=== PATIENT | female | born 1965 | race Caucasian/White ===

== ENCOUNTER → 2016-06-30 | Outpatient (CLI) | payer OTHER ==
--- NOTE | 2016-06-30 16:43 | XR ---
EXAMINATION TYPE: XR wrist complete RT DATE OF EXAM: 06/30/2016 4:27 PM COMPARISON: NONE HISTORY: Pain TECHNIQUE: Four views submitted. FINDINGS: The osseous structures are intact. The joint spaces are preserved and there is no acute fracture or dislocation. IMPRESSION: 1. No acute process. If symptoms persist consider MRI.
== END ==
LOC: RADXRMAIN 16:13
PROVIDERS: ATTEND Family Medicine
DX: M25.531 Pain in right wrist (principal)

== ENCOUNTER 2016-07-27 13:52 | Observation (INO) | payer OTHER ==
--- NOTE | 2016-07-27 14:26 | ED ---
General Adult HPI - General Chief complaint: Chest Pain Stated complaint: Sent by [facility] heart Time Seen by Provider: 07/27/16 14:21 Source: patient, RN notes reviewed, old records reviewed Mode of arrival: ambulatory Limitations: no limitations - History of Present Illness Initial comments: This is a 50-year-old female ER for evaluation because patient presents as transfer from [facility]. Patient was sent to [facility] for respiratory shortness of breath racing heart and exertional fatigue and dyspnea. Patient has diabetes and high blood pressure. High cholesterol. Patient admits chest pain to her back especially when she takes a deep breath. No nausea vomiting no recent alcohol or drug use. No sick contacts no fever cough or congestion - Related Data Home Medications Medication Instructions Recorded Confirmed metFORMIN HCL [Glucophage] 1,000 mg PO BID 03/08/15 07/27/16 Atorvastatin [Lipitor] 20 mg PO HS 07/27/16 07/27/16 Venlafaxine HCl [Effexor XR] 75 mg PO DAILY 07/27/16 07/27/16 glipiZIDE XL [Glucotrol XL] 10 mg PO DAILY 07/27/16 07/27/16 sitaGLIPtin [Januvia] 50 mg PO DAILY 07/27/16 07/27/16 Previous Rx's Medication Instructions Recorded traMADol HCl [Ultram] 50 mg PO Q6H PRN #15 tab 03/08/15 Loratadine-Pseudoeph 5-120 mg 1 each PO Q12HR #6 tab.er.12h 07/28/16 [Claritin-D 12 Hour] Metoprolol Tartrate [Lopressor] 12.5 mg PO BID #60 dose 07/28/16 Allergies Allergy/AdvReac Type Severity Reaction Status Date / Time No Known Allergies Allergy Verified 07/27/16 14:32 Review of Systems ROS Statement: Those systems with pertinent positive or pertinent negative responses have been documented in the HPI. ROS Other: All systems not noted in ROS Statement are negative. Past Medical History Past Medical History: Diabetes Mellitus History of Any Multi-Drug Resistant Organisms: None Reported Past Surgical History: Back Surgery, Bladder Surgery, Tonsillectomy, Tubal Ligation, Uterine Ablation Additional Past Surgical History / Comment(s): thyroidectomy Past Psychological History: Anxiety Smoking Status: Former smoker Past Alcohol Use History: Rare Past Drug Use History: None Reported - Past Family History Mother Family Medical History: Diabetes Mellitus Father Additional Family Medical History / Comment(s): stents placed General Exam Limitations: no limitations General appearance: alert, in no apparent distress, anxious, in distress, obese Head exam: Present: atraumatic, normocephalic, normal inspection Eye exam: Present: normal appearance, PERRL, EOMI. Absent: scleral icterus, conjunctival injection, periorbital swelling ENT exam: Present: normal exam, mucous membranes moist Neck exam: Present: normal inspection. Absent: tenderness, meningismus, lymphadenopathy Respiratory exam: Present: normal lung sounds bilaterally. Absent: respiratory distress, wheezes, rales, rhonchi, stridor Cardiovascular Exam: Present: normal rhythm, tachycardia, normal heart sounds. Absent: systolic murmur, diastolic murmur, rubs, gallop, clicks GI/Abdominal exam: Present: soft, normal bowel sounds. Absent: distended, tenderness, guarding, rebound, rigid Extremities exam: Present: normal inspection, full ROM, normal capillary refill. Absent: tenderness, pedal edema, joint swelling, calf tenderness Back exam: Present: normal inspection Neurological exam: Present: alert, oriented X3, CN II-XII intact Psychiatric exam: Present: normal affect, normal mood Skin exam: Present: warm, dry, intact, normal color. Absent: rash Course Vital Signs 07/27/16 07/27/16 07/27/16 13:58 16:59 18:05 Temperature 98.9 F 98.0 F Pulse Rate 138 H 110 H 120 H Respiratory 18 18 18 Rate Blood Pressure 169/95 186/95 162/86 O2 Sat by Pulse 96 98 98 Oximetry EKG Findings - EKG Comments: EKG Findings:: EKG shows sinus tachycardia rate 127, NJ 142, QRS 70, QTC 444 Medical Decision Making - Medical Decision Making 50 female sent here for evaluation by medics for respiratory tachycardia. Patient reports persistent tachycardia recurrence him, CT is negative for PE, patient does have chest pain will be kept for cardiac observation. - Lab Data Result diagrams: 07/28/16 07:47 07/27/16 14:24 Lab Results 07/27/16 07/27/16 07/27/16 Range/Units 14:24 14:24 14:24 WBC 3.8 (3.8-10.6) k/uL RBC 4.91 (3.80-5.40) m/uL Hgb 15.3 (11.4-16.0) gm/dL Hct 45.3 (34.0-46.0) % MCV 92.2 (80.0-100.0) fL MCH 31.2 (25.0-35.0) pg MCHC 33.8 (31.0-37.0) g/dL RDW 12.9 (11.5-15.5) % Plt Count 232 (150-450) k/uL Neutrophils % 67 % Lymphocytes % 19 % Monocytes % 9 % Eosinophils % 3 % Basophils % 1 % Neutrophils # 2.5 (1.3-7.7) k/uL Lymphocytes # 0.7 L (1.0-4.8) k/uL Monocytes # 0.3 (0-1.0) k/uL Eosinophils # 0.1 (0-0.7) k/uL Basophils # 0.0 (0-0.2) k/uL PT (9.0-12.0) sec INR (<1.1) APTT (22.0-30.0) sec D-Dimer (<0.60) mg/L FEU Sodium 137 (137-145) mmol/L Potassium 4.2 (3.5-5.1) mmol/L Chloride 100 (98-107) mmol/L Carbon Dioxide 21 L (22-30) mmol/L Anion Gap 16 mmol/L BUN 11 (7-17) mg/dL Creatinine 0.60 (0.52-1.04) mg/dL Est GFR (MDRD) Af Amer >60 (>60 ml/min/1.73 sqM) Est GFR (MDRD) Non-Af >60 (>60 ml/min/1.73 sqM) Glucose 205 H (74-99) mg/dL Calcium 9.6 (8.4-10.2) mg/dL Magnesium 1.4 L (1.6-2.3) mg/dL Total Bilirubin 0.6 (0.2-1.3) mg/dL AST 57 H (14-36) U/L ALT 75 H (9-52) U/L Alkaline Phosphatase 72 (38-126) U/L Total Creatine Kinase 60 (30-135) U/L CK-MB (CK-2) 0.4 (0.0-2.4) ng/mL CK-MB (CK-2) Rel Index 0.7 Troponin I <0.012 (0.000-0.034) ng/mL Total Protein 8.1 (6.3-8.2) g/dL Albumin 4.7 (3.5-5.0) g/dL Lipase 110 (23-300) U/L TSH (0.465-4.680) mIU/L 07/27/16 07/27/16 07/27/16 Range/Units 14:24 14:24 14:24 WBC (3.8-10.6) k/uL RBC (3.80-5.40) m/uL Hgb (11.4-16.0) gm/dL Hct (34.0-46.0) % MCV (80.0-100.0) fL MCH (25.0-35.0) pg MCHC (31.0-37.0) g/dL RDW (11.5-15.5) % Plt Count (150-450) k/uL Neutrophils % % Lymphocytes % % Monocytes % % Eosinophils % % Basophils % % Neutrophils # (1.3-7.7) k/uL Lymphocytes # (1.0-4.8) k/uL Monocytes # (0-1.0) k/uL Eosinophils # (0-0.7) k/uL Basophils # (0-0.2) k/uL PT 10.4 (9.0-12.0) sec INR 1.0 (<1.1) APTT 22.9 (22.0-30.0) sec D-Dimer 0.34 (<0.60) mg/L FEU Sodium (137-145) mmol/L Potassium (3.5-5.1) mmol/L Chloride (98-107) mmol/L Carbon Dioxide (22-30) mmol/L Anion Gap mmol/L BUN (7-17) mg/dL Creatinine (0.52-1.04) mg/dL Est GFR (MDRD) Af Amer (>60 ml/min/1.73 sqM) Est GFR (MDRD) Non-Af (>60 ml/min/1.73 sqM) Glucose (74-99) mg/dL Calcium (8.4-10.2) mg/dL Magnesium (1.6-2.3) mg/dL Total Bilirubin (0.2-1.3) mg/dL AST (14-36) U/L ALT (9-52) U/L Alkaline Phosphatase (38-126) U/L Total Creatine Kinase (30-135) U/L CK-MB (CK-2) (0.0-2.4) ng/mL CK-MB (CK-2) Rel Index Troponin I (0.000-0.034) ng/mL Total Protein (6.3-8.2) g/dL Albumin (3.5-5.0) g/dL Lipase (23-300) U/L TSH 1.580 (0.465-4.680) mIU/L - Radiology Data Radiology results: report reviewed (CT chest is negative for acute disease), image reviewed Critical Care Time Critical Care Time: Yes Total Critical Care Time: 31 Disposition Clinical Impression: Chest pain, Tachycardia Disposition: ADMITTED IP TO THIS [facility] Condition: Fair
[2016-07-27 14:37] LABS: Basophils % (A) 1 %; CH 32.7; CHCM 35.6; Eosinophils # (A) 0.1 k/uL (0-0.7); Eosinophils % (A) 3 %; HCT 45.3 % (34.0-46.0); HDW 2.55; HGB 15.3 gm/dL (11.4-16.0); Luc # (Auto) 0.07; Luc % (Auto) 2; Lymphocytes # (A) 0.7 k/uL (1.0-4.8); Lymphocytes % (A) 19 %; MCH 31.2 pg (25.0-35.0); MCHC 33.8 g/dL (31.0-37.0); MCV 92.2 fL (80.0-100.0); Mean Platelet Volume 8.1; Monocytes # (A) 0.3 k/uL (0-1.0); Monocytes % (A) 9 %; Neutrophils # (A) 2.5 k/uL (1.3-7.7); Neutrophils % (A) 67 %; RBC 4.91 m/uL (3.80-5.40); RDW 12.9 % (11.5-15.5); WBC 3.8 k/uL (3.8-10.6); WBC (Perox) 3.66
[2016-07-27 14:45] LABS: Partial Thromboplastin Time 22.9 sec (22.0-30.0); Prothrombin Time 10.4 sec (9.0-12.0)
[2016-07-27 14:48] LABS: ALT 75 U/L (9-52); AST 57 U/L (14-36); Alkaline Phosphatase 72 U/L (38-126); Anion Gap 16 mmol/L; Blood Urea Nitrogen 11 mg/dL (7-17); Calcium 9.6 mg/dL (8.4-10.2); Carbon Dioxide 21 mmol/L (22-30); Chloride 100 mmol/L (98-107); Glucose 205 mg/dL (74-99); Magnesium 1.4 mg/dL (1.6-2.3); Non-African American GFR(MDRD) >60 (>60 ml/min/1.73 sqM); Potassium 4.2 mmol/L (3.5-5.1); Sodium 137 mmol/L (137-145); Total Bilirubin 0.6 mg/dL (0.2-1.3); Total Protein 8.1 g/dL (6.3-8.2)
[2016-07-27] MEDS ORDERED: SODIUM CHLORIDE 0.9% 1,000 ML IV STA ×2 (14:52)
[2016-07-27] MEDS ORDERED: RX INFO: IV CONTRAST WAS GIVEN 1 EACH MISC MISCELLANE PRN (14:52)
[2016-07-27] MEDS ORDERED: SODIUM CHLORIDE 0.9% 500 ML IV STA (14:52)
[2016-07-27 14:58] LABS: Creatine Kinase 60 U/L (30-135)
[2016-07-27 15:09] LABS: Creatine Kinase MB 0.4 ng/mL (0.0-2.4); Troponin I <0.012 ng/mL (0.000-0.034)
--- NOTE | 2016-07-27 16:17 | CT ---
EXAMINATION TYPE: CT angio chest DATE OF EXAM: 07/27/2016 3:57 PM COMPARISON: NONE HISTORY: Patient complains of difficulty breathing. CT DLP: 470.8 mGycm Automated exposure control for dose reduction was used. CONTRAST: CTA scan of the thorax is performed with IV Contrast, patient injected with 100 mL of Omnipaque 350, pulmonary embolism protocol. There are 3-D post processed images.. FINDINGS: Lungs are clear of consolidation. There is no evidence of a pulmonary mass. There is no pleural effus ion. Liver appears enlarged. There is decreased density in the liver related to fatty infiltration. T here is no pericardial effusion. There is no evidence of aortic aneurysm or dissection. I see no filling defects in the pulmonary bridgette yolanda. There are no hilar masses. There is no mediastinal adenopathy. There is a mild hiatal hernia. B patric thorax appears intact. Heart appears enlarged. IMPRESSION: NO EVIDENCE OF PULMONARY EMBOLISM. FATTY INFILTRATION OF THE LIVER. CARDIOMEGALY. HIATAL HERNIA.
[2016-07-27] MEDS ORDERED: ASPIRIN 81 MG CHEW PO STA (17:00)
[2016-07-27] MEDS ORDERED: HEPARIN SODIUM,PORCINE 5,000 UNIT/ML 1 ML VIAL IV PRN (17:00)
[2016-07-27] MEDS ORDERED: MORPHINE SULFATE 4 MG/ML SYRINGE IV PRN (17:00)
[2016-07-27] MEDS ORDERED: NITROGLYCERIN SL TABS 0.4 MG TAB SUBLINGUAL PRN (17:00)
[2016-07-27] MEDS ORDERED: HEPARIN SODIUM,PORCINE/D5W PMX 25,000 UNIT in DEXTROSE/WATER 1 500ML.BAG IV SCH (17:00)
[2016-07-27] MEDS ORDERED: HEPARIN SODIUM,PORCINE 5,000 UNIT/ML 1 ML VIAL IV ONE (17:00)
[2016-07-27] MEDS ORDERED: ACETAMINOPHEN TAB 325 MG TAB PO PRN (19:51)
[2016-07-27] MEDS: SODIUM CHLORIDE 0.9% 1,000 ML IV SCH (20:22)
[2016-07-27 20:42] LABS: Creatine Kinase 76 U/L (30-135)
[2016-07-27 20:55] LABS: Creatine Kinase MB 0.3 ng/mL (0.0-2.4); Troponin I <0.012 ng/mL (0.000-0.034)
[2016-07-27] MEDS: guaiFENesin SYRUP 100MG/5ML 200 MG/10 ML CUP PO PRN (22:34)
[2016-07-28 01:57] LABS: Creatine Kinase 69 U/L (30-135)
[2016-07-28 02:10] LABS: Creatine Kinase MB 0.5 ng/mL (0.0-2.4); Troponin I <0.012 ng/mL (0.000-0.034)
[2016-07-28] MEDS: guaiFENesin SYRUP 100MG/5ML 200 MG/10 ML CUP PO PRN ×2 (05:13→13:22)
[2016-07-28] MEDS: SODIUM CHLORIDE 0.9% 1,000 ML IV SCH ×2 (05:16→13:03)
[2016-07-28 08:22] LABS: Glucose,Whole Blood 159 mg/dL (75-99)
--- NOTE | 2016-07-28 08:23 | P.CRDCN ---
History of Present Illness Consult date: 07/28/16 History of present illness: This is Dr. Saleem dictating a consultation on this 50-year-old female who was admitted to the hospital with complaints of cough, cold like symptoms and persistent cough associated with chest pain and back pain. Patient actually went to [facility] for evaluation of chest pains and cough. Apparently she was found to be tachycardic with heart rates in the 120s. Patient was sent here for further evaluation. Patient had a computed tomography scan of the chest in the emergency room which did not reveal any evidence of pulmonary emboli. The chest pain is mostly in the back with some radiation to the front aggravated by cough. Patient did have some burning sensation in the epigastrium throat but that was relieved with Tums. EKGs did not reveal any acute changes except sinus tachycardia. Echocardiogram showed good LV function without any wall motion abnormalities. At this point there doesn't seem to be in acute coronary syndrome. From Cardec standpoint patient could be discharged home when medically stable. Should have a stress test as an outpatient because of history of diabetes and hypercholesterolemia. Review of Systems As per the chart Past Medical History Past Medical History: Diabetes Mellitus, Hyperlipidemia History of Any Multi-Drug Resistant Organisms: None Reported Past Surgical History: Bladder Surgery, Tonsillectomy, Tubal Ligation, Uterine Ablation Additional Past Surgical History / Comment(s): thyroidectomy Past Psychological History: Anxiety Smoking Status: Former smoker Past Alcohol Use History: Rare Past Drug Use History: None Reported - Past Family History Mother Family Medical History: Diabetes Mellitus Father Additional Family Medical History / Comment(s): stents placed Medications and Allergies Home Medications Medication Instructions Recorded Confirmed Type metFORMIN HCL [Glucophage] 1,000 mg PO BID 03/08/15 07/27/16 History Atorvastatin [Lipitor] 20 mg PO HS 07/27/16 07/27/16 History Venlafaxine HCl [Effexor XR] 75 mg PO DAILY 07/27/16 07/27/16 History glipiZIDE XL [Glucotrol Xl] 10 mg PO DAILY 07/27/16 07/27/16 History sitaGLIPtin [Januvia] 50 mg PO DAILY 07/27/16 07/27/16 History Allergies Allergy/AdvReac Type Severity Reaction Status Date / Time No Known Allergies Allergy Verified 07/27/16 14:32 Physical Exam Vitals: Vital Signs Temp Pulse Pulse Resp BP BP BP 07/28/16 08:00 99.4 F 110 H 16 133/85 07/28/16 03:17 18 07/28/16 02:40 99 F 101 H 18 118/75 07/27/16 23:40 98.7 F 93 18 130/88 07/27/16 20:00 98.5 F 106 H 18 139/88 07/27/16 19:56 16 07/27/16 18:40 99.0 F 115 H 16 141/81 07/27/16 18:05 98.0 F 120 H 18 162/86 Pulse Ox 07/28/16 08:00 95 07/28/16 03:17 07/28/16 02:40 97 07/27/16 23:40 96 07/27/16 20:00 96 07/27/16 19:56 07/27/16 18:40 97 07/27/16 18:05 98 Intake and Output 07/27/16 07/28/16 07/28/16 22:59 06:59 14:59 Intake Total 159.667 Balance 159.667 Intake: Intake, IV Titration 159.667 Amount Heparin Sodium,Porcine/ 159.667 D5w Pmx 25,000 unit In Dextrose/Water 1 500ml. bag @ 10.6 UNITS/KG/HR 20 mls/hr IV .Q24H [facility] Rx#: [id number] Other: # Voids 3 GENERAL EXAM: Patient is alert and oriented and doesn't appear to be in any acute distress HEENT: Normocephalic. Normal reaction of pupils, equal size, normal range of extraocular motion. No erythema or exudates in the throat. NECK: No masses, no nuchal rigidity. CHEST: No chest wall deformity. LUNGS: Equal air entry with no crackles or wheeze. HEART: S1 and S2 normal with no audible mumurs or gallops. Regular rhythm, femorals equal on both sides.. ABDOMEN: No hepatosplenomegaly, normal bowel sounds, no guarding or rigidity. SKIN: No rashes CENTRAL NERVOUS SYSTEM: No focal deficits. EXTREMITIES: No cyanosis, clubbing or edema. Results 07/27/16 14:24 07/27/16 14:24 Cardiac Enzymes 07/27/16 07/28/16 Range/Units 20:18 01:21 CK-MB (CK-2) 0.3 0.5 (0.0-2.4) ng/mL Troponin I <0.012 <0.012 (0.000-0.034) ng/mL Coagulation 07/28/16 Range/Units 01:21 APTT 41.4 H (22.0-30.0) sec Current Medications Generic Name Dose Route Start Last Admin Trade Name Freq PRN Reason Stop Dose Admin Acetaminophen 650 mg 07/27/16 19:51 07/27/16 20:22 Tylenol Tab PO 650 mg Q4HR PRN Administration Fever and/ or Pain Aspirin 325 mg 07/28/16 09:00 Aspirin PO DAILY SOTERO Guaifenesin 200 mg 07/27/16 22:17 07/28/16 05:13 Robitussin PO 200 mg Q6H PRN Administration Cough Heparin Sodium (Porcine) 0 unit 07/27/16 17:00 Heparin IV Q6HR PRN Low PTT Protocol Heparin Sodium/Dextrose 25,000 500 mls @ 20 mls/hr 07/27/16 17:00 07/28/16 01 :57 unit/ IV Solution IV 12.6 units/kg/hr .Q24H SOTERO 23.77 mls/hr Protocol Titration 10.6 UNITS/KG/HR Sodium Chloride 1,000 mls @ 100 mls/hr 07/27/16 17:00 07/28/16 05:16 Saline 0.9% IV 100 mls/hr .Q10H SOTERO Administration Miscellaneous Information 1 each 07/27/16 14:52 07/27/16 16:05 Rx Info: Iv Contrast Was Given MISCELLANE 07/29/16 14:52 1 each DAILY PRN Administration Per Protocol Morphine Sulfate 4 mg 07/27/16 17:00 Morphine Sulfate (Inj) IV Q4HR PRN Chest Pain Nitroglycerin 0.4 mg 07/27/16 17:00 Nitrostat SUBLINGUAL Q5M PRN Chest Pain Intake and Output 07/27/16 07/28/16 07/28/16 22:59 06:59 14:59 Intake Total 159.667 Balance 159.667 Intake: Intake, IV Titration 159.667 Amount Heparin Sodium,Porcine/ 159.667 D5w Pmx 25,000 unit In Dextrose/Water 1 500ml. bag @ 10.6 UNITS/KG/HR 20 mls/hr IV .Q24H SOT[facility] Rx#: [id number] Other: # Voids 3 EKG Interpretations (text) Sinus tachycardia. Insignificant Q waves in inferior leads Assessment and Plan (1) Chest pain Status: Acute (2) Tachycardia Status: Acute (3) Bronchitis Status: Acute Plan: Patient's chest pains are clearly pleuritic and related to cough. Patient has a bout of bronchitis and may need a combination of steroids and antibiotics. Echo Cardigan showed good LV function. From Cardec standpoint patient could be discharged home. Follow-up as an outpatient. She may need outpatient stress test when medically stable
[2016-07-28 08:44] LABS: Cholesterol 116 mg/dL (<200); HDL Cholesterol 39 mg/dL (40-60); Triglycerides 112 mg/dL (<150)
[2016-07-28] MEDS ORDERED: ASPIRIN 325 MG TAB PO SCH (09:00)
[2016-07-28] MEDS ORDERED: metFORMIN 500 MG TAB PO SCH (09:15)
[2016-07-28] MEDS ORDERED: traMADol 50 MG TAB PO PRN (09:15)
[2016-07-28] MEDS ORDERED: LINAGLIPTIN 5 MG TABLET PO SCH (10:00)
[2016-07-28] MEDS ORDERED: VENLAFAXINE HCL ER 75 MG CAP PO SCH (10:00)
[2016-07-28] MEDS ORDERED: glipiZIDE 5 MG TAB PO SCH (10:00)
--- NOTE | 2016-07-28 10:37 | ECHOF ---
Referral Reason: MEASUREMENTS -------- HEIGHT: 154.9 cm WEIGHT: 94.3 kg BP: 118/75 IVSd: 1.1 cm (0.6 - 1.1) LVIDd: 3.0 cm (3.9 - 5.3) LVPWd: 1.3 cm (0.6 - 1.1) IVSs: 1.7 cm LVIDs: 1.9 cm LVPWs: 1.4 cm Ao Diam: 3.1 cm (2.0 - 3.7) AV Cusp: 2.0 cm (1.5 - 2.6) LA Diam: 3.2 cm (2.7 - 3.8) MV EXCURSION: 14.924 mm (> 18.000) MV EF SLOPE: 75 mm/s (70 - 150) EPSS: 0.7 cm MV E Kadeem: 0.63 m/s MV DecT: 111 ms MV A Kadeem: 0.79 m/s MV E/A Ratio: 0.80 RAP: 5.00 mmHg RVSP: 12.51 mmHg FINDINGS -------- Resting tachycardia (HR>100bpm). This was a technically difficult study with suboptimal views. There is mild concentric left ventricular hypertrophy. Overall left ventricular systolic function is normal with, an EF between 55 - 60 %. The right ventricle is normal in size and function. The left atrium is normal in size. The right atrium is normal in size. 1.5mg of Definity was utilized for enhancement of images The aortic valve is trileaflet, and appears structurally normal. No aortic stenosis or regurgitation. The mitral valve leaflets are mildly thickened. There is trace mitral regurgitation. Trace tricuspid regurgitation present. The right ventricular systolic pressure, as measured by Doppler, is 12.51mmHg. Pulmonic valve appears structurally normal. The aortic root size is normal. The pericardium is normal. CONCLUSIONS -------- 1. Resting tachycardia (HR>100bpm). 2. The mitral valve leaflets are mildly thickened. 3. There is trace mitral regurgitation. 4. Trace tricuspid regurgitation present. 5. The right ventricular systolic pressure, as measured by Doppler, is 12.51mmHg. 6. Pulmonic valve appears structurally normal. 7. The aortic root size is normal. 8. The pericardium is normal. 9. This was a technically difficult study with suboptimal views. 10. There is mild concentric left ventricular hypertrophy. 11. Overall left ventricular systolic function is normal with, an EF between 55 - 60 %. 12. The right ventricle is normal in size and function. 13. The left atrium is normal in size. 14. The right atrium is normal in size. 15. 1.5mg of Definity was utilized for enhancement of images 16. The aortic valve is trileaflet, and appears structurally normal. No aortic stenosis or regurgitation. RADIOCHEMICAL TECHNICIAN: Gilma Avendaño RDCS
[2016-07-28 11:04] LABS: Hemoglobin A1C 9.1 % (4.2-6.1)
[2016-07-28] MEDS ORDERED: METOPROLOL TARTRATE 12.5 MG TAB PO SCH (12:00)
[2016-07-28 12:04] VITALS: BP 135/87; PULSE 77; RESP 14; TEMP 99.1
[2016-07-28 12:11] LABS: Glucose,Whole Blood 217 mg/dL (75-99)
[2016-07-28] MEDS ORDERED: INSULIN LISPRO (humaLOG) 300 UNIT/3 ML VIAL SQ SCH (12:30)
[2016-07-28] MEDS ORDERED: LORATADINE-PSEUDOEPH 5-120 MG 1 EACH TAB.ER.12H PO SCH (13:15)
[2016-07-28 14:01] VITALS: BMI 39.2
--- NOTE | 2016-07-28 14:36 | HP ---
DATE OF ADMISSION: 07/27/2016 PRESENTING COMPLAINT: Short of breath, cough. HISTORY OF PRESENTING COMPLAINT: This is a very pleasant 50-year-old patient of Dr. Kami Glasgow whose chronic stable medical conditions include diabetes, hyperlipidemia, anxiety. Patient for 3 days has been having increasing amount of cold like symptoms, cough, nasal stuffiness, dry cough, low-grade fever, appetite is down, runny nose, a bit of a headache, rundown. Patient had bouts of coughing, especially after talking and then she does chest pain and decided to come in. She has no prior cardiac history. Chest pain did not radiate, only presented with coughing. REVIEW OF SYSTEMS: CONSTITUTIONAL: Tired. HEENT: Some frontal headache. RESPIRATORY: As above. CARDIOVASCULAR: No precordial pain. GASTROINTESTINAL: None. GENITOURINARY: None. MUSCULOSKELETAL: None. Dermatological: None. HEMATOLOGICAL: None. LYMPHATIC: None. PSYCHIATRY: Anxiety. NEUROLOGICAL: None. PAST MEDICAL HISTORY: Diabetes, hyperlipidemia, anxiety. PAST SURGICAL HISTORY: Bladder surgery, tonsillectomy, tubal ligation, uterine ablation, thyroidectomy. Psych history of anxiety. SOCIAL HISTORY: The patient smoked a few cigarettes on and off for some time. 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 FAMILY HISTORY: Diabetes, coronary artery disease. Home medications: 1. Glucotrol XL 10 mg a day. 2. Lipitor 20 mg q.h.s. 3. Ultram 50 mg q.6 p.r.n. 4. Januvia 50 mg a day. 5. Glucophage 1000 mg p.o. b.i.d. 6. Effexor XR 75 mg a day. 7. Lopressor 12.5 p.o. b.i.d. ALLERGIES: None. PHYSICAL EXAMINATION: Vital signs on presentation: Temperature 98.9, pulse 110, respirations 18, blood pressure 160/86, pulse ox 98% on room air. GENERAL APPEARANCE: Well built, BMI of 39, sitting up, comfortable. EYES: Pupils equal. Conjunctivae normal. HEENT: Oral cavity normal. NECK: JVD not raised. Mass not palpable. RESPIRATORY: Effort normal. LUNGS: Fair air entry. CARDIOVASCULAR: First and second sounds normal. No edema. ABDOMEN: Soft, nontender. Liver and spleen not palpable. LYMPHATIC: No lymph nodes palpable in neck or axillae. PSYCHIATRY: Alert and oriented x3. Mood and affect normal. NEUROLOGICAL: Pupils equal. Cranial nerves grossly intact. Power and sensation grossly intact. INVESTIGATIONS: White count 3.8, hemoglobin 13.3, potassium 4.2. BUN 11, creatinine 0.6, troponin less than 0.012, LDL 55. TSH is normal. EKG shows sinus tachycardia. Chest CTA no evidence of pulmonary embolism. ASSESSMENT: 1. Acute episode of viral syndrome, including sinusitis and bronchitis, causing nasal congestion, tachycardia, laryngitis, with chest pain element of pleurisy, highly doubt this to be cardiac presentation. 2. Diabetes mellitus type 2, on oral hypoglycemic. 3. Hyperlipidemia. 4. Anxiety, not otherwise specified. 5. Obesity, body mass index of 39.3. Cardiology was consulted to make sure there is no cardiac cause. Patient will be put on Claritin. The patient asked to drink warm liquids and do throat gargles. Patient also to cut back on talking as that will improved the vocal cords. Care was discussed with the patient and significant other. Questions were answered.
[2016-07-28] MEDS ORDERED: ATORVASTATIN 20 MG TAB PO SCH (21:00)
--- NOTE | 2016-07-29 21:38 | DS ---
DATE OF ADMISSION: 07/27/2016 DATE OF DISCHARGE: 07/28/2016 FINAL DIAGNOSES: 1. Acute viral syndrome causing sinusitis, bronchitis, and acute laryngitis, present on admission. 2. Acute pleurisy, probably viral, presenting with chest pain. 3. Type 2 diabetes mellitus on oral hypoglycemic. 4. Anxiety, depression not otherwise specified. 5. Obesity, body mass index of 39.3. HOSPITAL COURSE: This patient was admitted with what appears to be viral syndrome causing sinus tachycardia, laryngitis, pleurisy, bronchitis, seen by cardiology. Not needing any further work-up. Care was discussed in detail with the patient and significant other. Questions were answered. A 2-D echocardiogram was unremarkable. CT scan of the chest negative for PE. On exam, LUNGS: Fair air entry. CARDIOVASCULAR: First and second sounds normal. DISCHARGE MEDICATIONS: 1. Glucophage 500 mg p.o. b.i.d. 2. Ultram 50 mg q.6 p.r.n. 3. Lipitor 20 mg q.h.s. 4. Effexor XR 75 mg a day. 5. Glucotrol XL 10 mg a day. 6. Januvia 50 mg p.o. daily. 7. Claritin-D 1 tablet q.12 6 tablets. 8. Lopressor 12.5 p.o. b.i.d. Follow up with Dr. Kami Glasgow in 3 days, Dr. Saleem in one week.
== END 2016-07-28 14:08 | disposition home or self-care (01) ==
LOC: EC 13:52 → 3SUR 17:01 → 3OBS 07-28 10:32
PROVIDERS: ADMIT Hospitalist; ATTEND Hospitalist
DX: B34.9 Viral infection, unspecified (principal); J40 Bronchitis, not specified as acute or chronic; J32.9 Chronic sinusitis, unspecified; J04.0 Acute laryngitis; R09.1 Pleurisy; E11.9 Type 2 diabetes mellitus without complications; F41.9 Anxiety disorder, unspecified; F32.9 Major depressive disorder, single episode, unspecified; E66.9 Obesity, unspecified; Z68.39 Body mass index [BMI] 39.0-39.9, adult; E78.00 Pure hypercholesterolemia, unspecified; E78.5 Hyperlipidemia, unspecified; Z79.84 Long term (current) use of oral hypoglycemic drugs; Z79.899 Other long term (current) drug therapy; Z82.49 Family history of ischemic heart disease and other diseases of the circulatory system; Z87.891 Personal history of nicotine dependence; R06.02 Shortness of breath; R53.83 Other fatigue; R00.0 Tachycardia, unspecified; R51 Headache; I10 Essential (primary) hypertension
CPT/HCPCS: 96376 ×2; 96361 ×3; 99291 ×2; 36415; 93005; 85379; 80061; 80053; 84443; 83036; 82550 ×2; 82553 ×2; 83690; 83735; 84484 ×2; 85025; 85049; 85610; 85730 ×2; 71275; G0378 ×2; C8929; J1644 ×2; Q9967; Q9957; 93306; 96366

== ENCOUNTER → 2017-02-18 | Outpatient (CLI) | payer OTHER ==
--- NOTE | 2017-02-19 11:47 | MM ---
Reason for exam: screening (asymptomatic). Last mammogram was performed 1 year and 5 months ago. History: Family history of breast cancer in paternal aunt. Reductions of both breasts, 2011. Physical Findings: A clinical breast exam by your physician is recommended on an annual basis and results should be correlated with mammographic findings. MG Screening Mammo w CAD Bilateral CC and MLO view(s) were taken. Prior study comparison: October 03, 2015, bilateral MG screening mammo w CAD. May 12, 2012, CAD bilateral diagnostic mammogram. There are scattered fibroglandular densities. Finding: There are typically benign dystrophic, round calcifications in both breasts. There is no discrete abnormality. ASSESSMENT: Incomplete: need additional imaging evaluation, BI-RAD 0 RECOMMENDATION: Ultrasound of the left breast. (focal site of shooting pain) [facility] will attempt to contact patient to return for ultrasound.
== END | disposition home or self-care (01) ==
LOC: RADMAMWWP 11:13
PROVIDERS: ATTEND Family Medicine
DX: Z12.31 Encounter for screening mammogram for malignant neoplasm of breast (principal); N95.1 Menopausal and female climacteric states

== ENCOUNTER → 2017-02-27 | Outpatient (CLI) | payer OTHER ==
--- NOTE | 2017-02-27 10:15 | US ---
EXAMINATION TYPE: US pelvis complete transvag DATE OF EXAM: 02/27/2017 COMPARISON: US & CT CLINICAL HISTORY: N95.1 Menopausal Female Climacteric States. TECHNIQUE: Transvaginal (TV) and Transabdominal (TA) Date of LMP: post menopausaul EXAM MEASUREMENTS: Uterus: 9.2 x 4.4 x 4.7 cm Endometrial Stripe: 0.7 cm Right Ovary: not identified cm Left Ovary: 1.8 x 1.1 x 1.2 cm 1. Uterus: Anteverted heterogeneous 2. Endometrium: measures 0.7 cm 3. Right Ovary: not identified 4. Left Ovary: wnl 5. Bilateral Adnexa: wnl 6. Posterior cul-de-sac: no free fluid IMPRESSION: 1. Uterine tissue is heterogeneous which is not. Occasionally BE seen with diffuse fibroid change. No discrete fibroids noted.
== END | disposition home or self-care (01) ==
LOC: RADUSWWP 09:35
PROVIDERS: ATTEND Family Medicine
DX: N95.1 Menopausal and female climacteric states (principal)
CPT/HCPCS: 76830; 76856

== ENCOUNTER → 2017-03-06 | Outpatient (CLI) | payer OTHER ==
--- NOTE | 2017-03-09 08:31 | USB ---
Reason for exam: additional evaluation requested from abnormal screening. History: Family history of breast cancer in paternal aunt. Reductions of both breasts, 2010. Physical Findings: Nurse Summary: increased thickening bilaterally at scars (nurse kp). US Breast Workup Limited LT Left breast ultrasound demonstrates no cystic or solid lesion seen. Upper outer quadrant and periareolar regions were scanned. These results were verbally communicated with the patient and result sheet given to the patient on 03/06/17. ASSESSMENT: Negative, BI-RAD 1 RECOMMENDATION: Return to routine screening mammogram schedule for both breasts. Manage on a clinical basis with regard to shooting breast pain.
== END | disposition home or self-care (01) ==
LOC: RADUSWWP 15:25
PROVIDERS: ATTEND Family Medicine
DX: R92.8 Other abnormal and inconclusive findings on diagnostic imaging of breast (principal)

== ENCOUNTER 2017-06-13 18:59 | Emergency (ER) | payer OTHER ==
[2017-06-13] MEDS ORDERED: MORPHINE SULFATE 4 MG/ML SYRINGE IV STA (19:37)
[2017-06-13] MEDS ORDERED: ONDANSETRON 4 MG/2 ML VIAL IVP STA (19:37)
[2017-06-13] MEDS ORDERED: SODIUM CHLORIDE 0.9% 1,000 ML IV STA ×2 (19:37)
[2017-06-13] MEDS ORDERED: PANTOPRAZOLE 40 MG/10 ML VIAL IVP STA (19:38)
[2017-06-13 20:01] LABS: Basophils % (A) 0 %; Eosinophils # (A) 0.2 k/uL (0-0.7); Eosinophils % (A) 2 %; HCT 41.3 % (34.0-46.0); HGB 14.4 gm/dL (11.4-16.0); Lymphocytes # (A) 2.4 k/uL (1.0-4.8); Lymphocytes % (A) 24 %; MCH 31.7 pg (25.0-35.0); MCHC 34.9 g/dL (31.0-37.0); MCV 90.6 fL (80.0-100.0); Mean Platelet Volume 8.6; Monocytes # (A) 0.5 k/uL (0-1.0); Monocytes % (A) 5 %; Neutrophils # (A) 6.7 k/uL (1.3-7.7); Neutrophils % (A) 68 %; Platelet Count 283 k/uL (150-450); RBC 4.56 m/uL (3.80-5.40); RDW 12.3 % (11.5-15.5); WBC 9.8 k/uL (3.8-10.6)
[2017-06-13 20:07] LABS: ALT 31 U/L (9-52); AST 16 U/L (14-36); Albumin 4.3 g/dL (3.5-5.0); Alkaline Phosphatase 69 U/L (38-126); Amylase 84 U/L (30-110); Anion Gap 12 mmol/L; Blood Urea Nitrogen 12 mg/dL (7-17); Calcium 9.9 mg/dL (8.4-10.2); Carbon Dioxide 26 mmol/L (22-30); Chloride 98 mmol/L (98-107); Glucose 250 mg/dL (74-99); Lipase 182 U/L (23-300); Potassium 4.5 mmol/L (3.5-5.1); Sodium 136 mmol/L (137-145); Total Bilirubin 0.5 mg/dL (0.2-1.3); Total Protein 7.2 g/dL (6.3-8.2)
[2017-06-13 20:10] VITALS: PULSE 84; RESP 18
[2017-06-13 20:17] LABS: Creatine Kinase 45 U/L (30-135)
[2017-06-13 20:19] LABS: D-Dimer 0.3 mg/L FEU (<0.60)
[2017-06-13 20:23] LABS: INR 0.9 (<1.2); Partial Thromboplastin Time 22.6 sec (22.0-30.0); Prothrombin Time 9.4 sec (9.0-12.0)
[2017-06-13 20:30] LABS: Creatine Kinase MB 0.3 ng/mL (0.0-2.4); Troponin I <0.012 ng/mL (0.000-0.034)
--- NOTE | 2017-06-13 20:42 | ED ---
Chest Pain HPI - General Chief Complaint: Chest Pain Stated Complaint: UPPER BACK PAIN RADIATING TO CHEST Time Seen by Provider: 06/13/17 19:16 Source: patient Mode of arrival: ambulatory Limitations: no limitations - History of Present Illness Initial Comments: 51 years old female presented with a chest pain going on for 6 days, and she denies any history of heart disease denies any history of pancreatitis denies any history of stomach ulcers denies any alcohol abuse as well pain gets worse with deep breaths she does have a history of diabetes. He denies any headaches no neck stiffness is short-winded has chest pain no abdominal pain no frequency urgency dysuria no symptoms of TIA or CVA - Related Data Home Medications Medication Instructions Recorded Confirmed Albiglutide [Tanzeum] 30 mg SQ Q7D 06/13/17 06/13/17 Glipizide (Unk. Dose) 1 tab PO DIRECTED 06/13/17 06/13/17 Hormone Patch 1 patch TRANSDERM DIRECTED 06/13/17 06/13/17 Lisinopril (Unk. Dose) 1 tab PO DIRECTED 06/13/17 06/13/17 Metformin (Unk. Dose) 1 tab PO DIRECTED 06/13/17 06/13/17 traMADol HCl [Ultram] 50 mg PO ONCE PRN 06/13/17 06/13/17 Previous Rx's Medication Instructions Recorded Omeprazole 20 mg PO DAILY #30 cap 06/13/17 oxyCODONE-APAP 5-325MG [Percocet 1 tab PO Q6HR PRN #12 tab 06/13/17 5-325 mg] Allergies Allergy/AdvReac Type Severity Reaction Status Date / Time No Known Allergies Allergy Verified 06/13/17 20:09 Review of Systems ROS Statement: Those systems with pertinent positive or pertinent negative responses have been documented in the HPI. ROS Other: All systems not noted in ROS Statement are negative. EKG Findings - EKG Comments: EKG Findings:: EKG is normal sinus rhythm medical rate is 86 PA interval is 154 QRS duration is 66 QT/QTc is 340/406 and aVF this EKG does not reveal any ST elevation or ST depression Past Medical History Past Medical History: Diabetes Mellitus, Hyperlipidemia, Thyroid Disorder History of Any Multi-Drug Resistant Organisms: None Reported Past Surgical History: Back Surgery, Bladder Surgery, Tonsillectomy, Tubal Ligation, Uterine Ablation Additional Past Surgical History / Comment(s): thyroidectomy Past Psychological History: Anxiety Smoking Status: Former smoker Past Alcohol Use History: Rare Past Drug Use History: None Reported - Past Family History Mother Family Medical History: Diabetes Mellitus Father Additional Family Medical History / Comment(s): stents placed General Exam - General Exam Comments Initial Comments: General: The patient is awake and alert, Mild distress Skin: Skin is warm and dry and no rashes or lesions are noted. Eye: Pupils are equal, round and reactive to light, extra-ocular movements are intact; there is normal conjunctiva bilaterally. Ears, nose, mouth and throat: There are moist mucous membranes and no oral lesions. Neck: The neck is supple, there is no tenderness or JVD. Cardiovascular: There is a regular rate and rhythm. No murmur, rub or gallop is appreciated. Respiratory: To auscultation bilateral, no wheezing no rhonchi no distress respiratory henderson noticed Gastrointestinal: Tender in epigastric area very tender over right upper quadrant as well as left upper quadrant area Back: There is no tenderness to palpation in the midline. There is no obvious deformity. Musculoskeletal: Normal ROM, no tenderness, There is no pedal edema. There is no calf tenderness or swelling. No cords were appreciated. Neurological: CN II-XII intact, Cranial nerves III through XII are intact. There are no obvious motor or sensory deficits. Coordination appears grossly intact. Speech is normal. Psychiatric: Cooperative, appropriate mood & affect, normal judgment. Limitations: no limitations Course Vital Signs 06/13/17 06/13/17 19:01 20:09 Temperature 98.9 F Pulse Rate 91 84 Respiratory 20 18 Rate Blood Pressure 138/96 149/86 O2 Sat by Pulse 98 97 Oximetry 70 is reassessed at term 2120, she is feeling better her CBC her troponin and d- dimer are all unremarkable she be gone home on now omeprazole 20 mg 1 tablet daily she was advised to cut down on acid-containing beverages (1 follow with the family doctor and now back to ER if pain gets worse Disposition Clinical Impression: Chest pain, Epigastric pain Disposition: HOME SELF-CARE Instructions: Chest Pain (ED) Prescriptions: Omeprazole 20 mg PO DAILY #30 cap oxyCODONE-APAP 5-325MG [Percocet 5-325 mg] 1 tab PO Q6HR PRN #12 tab PRN Reason: Pain Referrals: Kami Glasgow DO [Primary Care Provider] - 1-2 days
--- NOTE | 2017-06-13 21:11 | XR ---
EXAMINATION TYPE: XR thoracic spine 2V DATE OF EXAM: 06/13/2017 COMPARISON: NONE HISTORY: Upper back pain TECHNIQUE: Three-view thoracic spine FINDINGS: Mid thoracic spine spondylosis is present. Disc heights appear preserved. Vertebral body he ights are preserved. Alignment is normal. IMPRESSION: 1. Thoracic spondylosis
--- NOTE | 2017-06-13 21:11 | XR ---
EXAMINATION TYPE: XR chest 2V DATE OF EXAM: 06/13/2017 COMPARISON: 06/12/2010 INDICATION: Chest pain short of breath TECHNIQUE: Frontal and lateral views of the chest are obtained. FINDINGS: The heart size is normal. The pulmonary vasculature is normal. The lungs are clear. There is spondylosis through the thoracic spine. IMPRESSION: 1. No acute pulmonary process.
[2017-06-13 21:35] VITALS: BP 141/86; TEMP 97.4
== END 2017-06-13 21:35 | disposition home or self-care (01) ==
LOC: EC 18:59
DX: R07.9 Chest pain, unspecified (principal); R10.13 Epigastric pain; E11.9 Type 2 diabetes mellitus without complications; Z87.891 Personal history of nicotine dependence; Z79.84 Long term (current) use of oral hypoglycemic drugs; Z79.899 Other long term (current) drug therapy
CPT/HCPCS: 36415; 93005; 85379; 80053; 82150; 82550; 82553; 83690; 83735; 84484; 85025; 85610; 85730; 72070; 71046; 99285; 96374; 96375 ×2; 96361; J2270; J2405; C9113

== ENCOUNTER 2017-07-17 06:46 | Day surgery (SDC) | payer OTHER ==
[2017-07-15 10:07] VITALS: BMI 37.8
[~2017-07-17 06:46] MED LIST: LACTATED RINGERS 1,000 ML IV SCH; LIDOCAINE 1% 20 ML VIAL (10MG/ML) FOR IV START INTRADERMA PRN
[2017-07-17 07:31] LABS: Glucose,Whole Blood 193 mg/dL (75-99)
[2017-07-17 07:33] VITALS: RESP 18; TEMP 98.3
[2017-07-17] MEDS ORDERED: ONDANSETRON 4 MG/2 ML VIAL IVP ONE (07:36)
[2017-07-17] MEDS ORDERED: PROPOFOL 10 MG/ML 20 ML VIAL IV ONE (08:08)
--- NOTE | 2017-07-17 08:33 | P.PCN ---
Date of Procedure: 07/17/17 Procedure(s) Performed: BRIEF HISTORY: Patient is a 51-year-old pleasant 8 female, scheduled for an elective colonoscopy as a part of screening for colorectal neoplasia. PROCEDURE PERFORMED: Colonoscopy. PREOPERATIVE DIAGNOSIS: Screening for colon cancer. IV sedation per Anesthesia. PROCEDURE: After informed consent was obtained, the patient, was brought into the endoscopy unit. IV sedation was administered by Anesthesia under continuous monitoring. Digital rectal examination was normal. Initially the Olympus CF- 160 flexible video colonoscope was then inserted in the rectum, gradually advanced into the cecum without any difficulty. Careful examination was performed as the scope was gradually being withdrawn. Ileocecal valve and the appendiceal orifice were visualized and appeared normal. Prep was excellent. Mucosa of the cecum, ascending colon, transverse colon, descending colon, sigmoid colon, and rectum appeared normal. Retroflexion was performed in the rectum and no lesions were seen. The patient tolerated the procedure well. IMPRESSION: Normal-appearing colon from rectum to cecum with no evidence of colorectal neoplasia . RECOMMENDATIONS: Findings of this examination were discussed with the patient as well as her family. She was advised to have a repeat screening colonoscopy in 10 years.
[2017-07-17 09:05] VITALS: BP 136/84; PULSE 68
== END 2017-07-17 09:15 | disposition home or self-care (01) ==
LOC: ORWHC2ENDO 06:46
PROVIDERS: ATTEND Internal Medicine Gastroenterology
DX: Z12.11 Encounter for screening for malignant neoplasm of colon (principal); I10 Essential (primary) hypertension; E11.9 Type 2 diabetes mellitus without complications; Z79.84 Long term (current) use of oral hypoglycemic drugs; Z79.890 Hormone replacement therapy; Z79.899 Other long term (current) drug therapy
CPT/HCPCS: 81025; J2405; J2704; G0121

== ENCOUNTER → 2017-09-19 | Outpatient (CLI) | payer OTHER ==
--- NOTE | 2017-09-19 11:29 | XR ---
EXAMINATION TYPE: XR elbow complete RT DATE OF EXAM: 09/19/2017 CLINICAL HISTORY: Right elbow pain for 2 weeks with no known injury TECHNIQUE: Frontal, lateral and oblique images of the right elbow are obtained. COMPARISON: None FINDINGS: There is no acute fracture/dislocation evident in the right elbow. No abnormal fat pad si gns are seen. The overlying soft tissue appears unremarkable. IMPRESSION: There is no acute fracture or dislocation in the right elbow.
--- NOTE | 2017-09-21 08:17 | MR ---
EXAMINATION TYPE: MR thoracic spine wo con DATE OF EXAM: 09/19/2017 COMPARISON: NONE HISTORY: Pain in thoracic spine Standard multiplanar, multisequence MRI departmental protocol Multiplanar, multisequence images of the thoracic spine were acquired. FINDINGS: Alignment is anatomic. There is loss of disc signal and space at T8-T9 and T9-T10 compatible with deg enerative disc disease. No compression deformities. At T2-T3 there is minimal central disc bulging but no canal stenosis, spinal cord contact or foramina l encroachment. At T8-T9 there is a focal right paracentral disc herniation which abuts the anterior margin of the sp inal cord results in mass effect. There is mild compression anteriorly to the right. At T9-T10 there is a focal right paracentral disc herniation which results in mild anterior compressi on and upon the anterior margin the spinal cord. No abnormal signal the visualized spinal cord. Sagittal disc bulging noted at C5-C6 and C6-C7. IMPRESSION: 1. Degenerative disc disease with right paracentral disc herniations T8-T9 and T9-T10 resulting in an terior compression of the spinal cord. Referring clinician notified by telephone. 2. Sagittal disc bulging C5-C6 and C6-C7. Axial images of these levels are not included by MRI of the thoracic spine. Correlate with MRI as clinically warranted.
== END | disposition home or self-care (01) ==
LOC: RADMRIMAIN 10:26
PROVIDERS: ATTEND Family Medicine
DX: M51.24 Other intervertebral disc displacement, thoracic region (principal); M51.34 Other intervertebral disc degeneration, thoracic region; M25.521 Pain in right elbow
CPT/HCPCS: 72146

== ENCOUNTER 2018-01-28 08:16 | Emergency (ER) | payer OTHER ==
[2018-01-28] MEDS ORDERED: ONDANSETRON 4 MG/2 ML VIAL IVP STA (08:51)
[2018-01-28] MEDS ORDERED: diphenhydrAMINE 50 MG/ML 1 ML VIAL IVP STA (08:51)
[2018-01-28] MEDS ORDERED: MECLIZINE 12.5 MG TAB PO STA (08:51)
[2018-01-28] MEDS ORDERED: SODIUM CHLORIDE 0.9% 1,000 ML IV STA ×2 (08:51)
--- NOTE | 2018-01-28 08:54 | ED ---
Dizziness HPI - General Chief Complaint: Dizziness Stated Complaint: Dizziness Time Seen by Provider: 01/28/18 08:27 Source: patient, family, RN notes reviewed, old records reviewed Mode of arrival: wheelchair Limitations: no limitations - History of Present Illness Initial Comments: Patient is a 52-year-old female presents emergency department today with chief complaint of dizziness episodes. Patient reports that upon awaking today she felt like when she would turn her head the room would spin. She reports that that caused her to feel nauseated. Patient states this happened multiple times through the morning when she would change position. She denies any specific chest pain. She states that she does feel like she is somewhat labored breathing. She denies any headache. Denies visual changes. - Related Data Home Medications Medication Instructions Recorded Confirmed Escitalopram [Lexapro] 10 mg PO DAILY 07/15/17 01/28/18 Estradiol [Estradiol 0.1 MG Patch] 1 patch TRANSDERM FR 07/15/17 01/28/18 Lisinopril [Prinivil] 10 mg PO PC-LUNCH 07/15/17 01/28/18 Progesterone, Micronized 200 mg PO DAILY 07/15/17 01/28/18 [Progesterone] glipiZIDE [Glucotrol] 10 mg PO AC-BRKFST 07/15/17 01/28/18 metFORMIN HCL [metFORMIN HCL ER] 1,000 mg PO DAILY 07/15/17 01/28/18 sitaGLIPtin [Januvia] 100 mg PO DAILY 07/15/17 01/28/18 ALPRAZolam [Xanax] 0.25 mg PO BID PRN 01/28/18 01/28/18 Acetaminophen [Tylenol Extra 500 mg PO Q6HR PRN 01/28/18 01/28/18 Strength] Atorvastatin [Lipitor] 20 mg PO HS 01/28/18 01/28/18 Previous Rx's Medication Instructions Recorded Meclizine [Antivert] 25 mg PO TID #20 tab 01/28/18 Ondansetron Odt [Zofran Odt] 4 mg PO Q8HR PRN #12 tab 01/28/18 Allergies Allergy/AdvReac Type Severity Reaction Status Date / Time No Known Allergies Allergy Verified 01/28/18 09:17 Review of Systems ROS Statement: Those systems with pertinent positive or pertinent negative responses have been documented in the HPI. ROS Other: All systems not noted in ROS Statement are negative. Past Medical History Past Medical History: Diabetes Mellitus, Hyperlipidemia, Hypertension, Thyroid Disorder History of Any Multi-Drug Resistant Organisms: None Reported Past Surgical History: Bladder Surgery, Orthopedic Surgery, Tonsillectomy, Tubal Ligation, Uterine Ablation Additional Past Surgical History / Comment(s): thyroidectomy. CYST REMOVED FROM BACK. RT KNEE SX Past Anesthesia/Blood Transfusion Reactions: Postoperative Nausea & Vomiting ( PONV) Past Psychological History: Anxiety Smoking Status: Current some day smoker Past Alcohol Use History: Rare Past Drug Use History: None Reported - Past Family History Mother Family Medical History: Diabetes Mellitus Father Additional Family Medical History / Comment(s): stents placed General Exam - General Exam Comments Initial Comments: 52-year-old female. Alert and oriented. Patient appears in no acute distress. Limitations: no limitations General appearance: alert, in no apparent distress Head exam: Present: atraumatic, normocephalic, normal inspection Eye exam: Present: normal appearance, PERRL, EOMI. Absent: scleral icterus, conjunctival injection, periorbital swelling ENT exam: Present: normal exam, mucous membranes moist, other (Patient has nystagmus on right lateral gaze.) Neck exam: Present: normal inspection. Absent: tenderness, meningismus, lymphadenopathy Respiratory exam: Present: normal lung sounds bilaterally. Absent: respiratory distress, wheezes, rales, rhonchi, stridor Cardiovascular Exam: Present: regular rate, normal rhythm, normal heart sounds. Absent: systolic murmur, diastolic murmur, rubs, gallop, clicks GI/Abdominal exam: Present: soft, normal bowel sounds. Absent: distended, tenderness, guarding, rebound, rigid Neurological exam: Present: alert, oriented X3, CN II-XII intact Psychiatric exam: Present: normal affect, normal mood Skin exam: Present: warm, dry, intact, normal color. Absent: rash Course Vital Signs 01/28/18 08:23 Temperature 97.9 F Pulse Rate 72 Respiratory 20 Rate Blood Pressure 165/95 O2 Sat by Pulse 100 Oximetry Medical Decision Making - Medical Decision Making 50-year-old female presents emergency arm to complaint of dizziness. Following the room was spinning. Patient was given IV fluids labwork obtained. Given Antivert and Zofran and Benadryl. She reports relief in her symptoms Patient has some nystagmus on on right lateral gaze. This time Patient has normal lab work. Normal EKG and normal chest x-ray. Discussed likely etiology is related to vertigo. We'll discharge the Patient with Antivert and Zofran. Discussed return parameters and close follow-up with PCP. Patient's family understands treatment and Patient is history plan will comply. Return parameters were discussed. - Lab Data Result diagrams: 01/28/18 08:42 01/28/18 08:42 Lab Results 01/28/18 01/28/18 01/28/18 Range/Units 08:42 08:42 08:42 WBC 6.1 (3.8-10.6) k/uL RBC 4.81 (3.80-5.40) m/uL Hgb 15.2 (11.4-16.0) gm/dL Hct 44.8 (34.0-46.0) % MCV 93.2 (80.0-100.0) fL MCH 31.5 (25.0-35.0) pg MCHC 33.8 (31.0-37.0) g/dL RDW 12.6 (11.5-15.5) % Plt Count 269 (150-450) k/uL Neutrophils % 68 % Lymphocytes % 23 % Monocytes % 4 % Eosinophils % 3 % Basophils % 1 % Neutrophils # 4.1 (1.3-7.7) k/uL Lymphocytes # 1.4 (1.0-4.8) k/uL Monocytes # 0.3 (0-1.0) k/uL Eosinophils # 0.2 (0-0.7) k/uL Basophils # 0.0 (0-0.2) k/uL Sodium 136 L (137-145) mmol/L Potassium 5.0 (3.5-5.1) mmol/L Chloride 99 (98-107) mmol/L Carbon Dioxide 24 (22-30) mmol/L Anion Gap 13 mmol/L BUN 13 (7-17) mg/dL Creatinine 0.45 L (0.52-1.04) mg/dL Est GFR (CKD-EPI)AfAm >90 (>60 ml/min/1.73 sqM) Est GFR (CKD-EPI)NonAf >90 (>60 ml/min/1.73 sqM) Glucose 253 H (74-99) mg/dL Calcium 9.3 (8.4-10.2) mg/dL Total Bilirubin 0.6 (0.2-1.3) mg/dL AST 22 (14-36) U/L ALT 39 (9-52) U/L Alkaline Phosphatase 50 (38-126) U/L Troponin I <0.012 (0.000-0.034) ng/mL Total Protein 6.8 (6.3-8.2) g/dL Albumin 3.9 (3.5-5.0) g/dL Urine Color Urine Appearance (Clear) Urine pH (5.0-8.0) Ur Specific [place] (1.001-1.035) Urine Protein (Negative) Urine Glucose (UA) (Negative) Urine Ketones (Negative) Urine Blood (Negative) Urine Nitrite (Negative) Urine Bilirubin (Negative) Urine Urobilinogen (<2.0) mg/dL Ur Leukocyte Esterase (Negative) 01/28/18 Range/Units 09:01 WBC (3.8-10.6) k/uL RBC (3.80-5.40) m/uL Hgb (11.4-16.0) gm/dL Hct (34.0-46.0) % MCV (80.0-100.0) fL MCH (25.0-35.0) pg MCHC (31.0-37.0) g/dL RDW (11.5-15.5) % Plt Count (150-450) k/uL Neutrophils % % Lymphocytes % % Monocytes % % Eosinophils % % Basophils % % Neutrophils # (1.3-7.7) k/uL Lymphocytes # (1.0-4.8) k/uL Monocytes # (0-1.0) k/uL Eosinophils # (0-0.7) k/uL Basophils # (0-0.2) k/uL Sodium (137-145) mmol/L Potassium (3.5-5.1) mmol/L Chloride (98-107) mmol/L Carbon Dioxide (22-30) mmol/L Anion Gap mmol/L BUN (7-17) mg/dL Creatinine (0.52-1.04) mg/dL Est GFR (CKD-EPI)AfAm (>60 ml/min/1.73 sqM) Est GFR (CKD-EPI)NonAf (>60 ml/min/1.73 sqM) Glucose (74-99) mg/dL Calcium (8.4-10.2) mg/dL Total Bilirubin (0.2-1.3) mg/dL AST (14-36) U/L ALT (9-52) U/L Alkaline Phosphatase (38-126) U/L Troponin I (0.000-0.034) ng/mL Total Protein (6.3-8.2) g/dL Albumin (3.5-5.0) g/dL Urine Color Yellow Urine Appearance Clear (Clear) Urine pH 7.0 (5.0-8.0) Ur Specific [place] 1.017 (1.001-1.035) Urine Protein Trace H (Negative) Urine Glucose (UA) 3+ H (Negative) Urine Ketones Trace H (Negative) Urine Blood Negative (Negative) Urine Nitrite Negative (Negative) Urine Bilirubin Negative (Negative) Urine Urobilinogen <2.0 (<2.0) mg/dL Ur Leukocyte Esterase Negative (Negative) 01/28/18 09:42 EKG performed at 850 shows normal sinus rhythm inferior infarct age indeterminate. Cannot rule out anterior infarct age and treatment. Abnormal EKG noted. Ventricular rate of 75 bpm. TX interval is 160 ms. QS duration 60. QTQTC screening 2/447 ms. - Radiology Data Radiology results: report reviewed Chest x-ray is negative for any acute cardio primary process. Disposition Clinical Impression: Vertigo Disposition: HOME SELF-CARE Condition: Good Instructions: Dizziness (ED), Vertigo (ED) Additional Instructions: Eyes are rest, remain hydrated. Take medications as prescribed. Have close follow-up with primary care physician. Return to the emergency department if any alarming signs or symptoms occur. Prescriptions: Meclizine [Antivert] 25 mg PO TID #20 tab Ondansetron Odt [Zofran Odt] 4 mg PO Q8HR PRN #12 tab PRN Reason: Nausea Is patient prescribed a controlled substance at d/c from ED?: No Referrals: Kami Glasgow DO [Primary Care Provider] - 1-2 days Time of Disposition: 11:27
[2018-01-28 09:31] LABS: ALT 39 U/L (9-52); AST 22 U/L (14-36); Albumin 3.9 g/dL (3.5-5.0); Alkaline Phosphatase 50 U/L (38-126); Anion Gap 13 mmol/L; Blood Urea Nitrogen 13 mg/dL (7-17); Calcium 9.3 mg/dL (8.4-10.2); Carbon Dioxide 24 mmol/L (22-30); Chloride 99 mmol/L (98-107); Glucose 253 mg/dL (74-99); Sodium 136 mmol/L (137-145); Total Bilirubin 0.6 mg/dL (0.2-1.3); Total Protein 6.8 g/dL (6.3-8.2)
--- NOTE | 2018-01-28 09:31 | XR ---
EXAMINATION TYPE: XR chest 2V DATE OF EXAM: 01/28/2018 COMPARISON: 06/13/2017. HISTORY: Dizziness. TECHNIQUE: Frontal and lateral views of the chest are obtained. FINDINGS: There is no focal air space opacity, pleural effusion, or pneumothorax seen. Unchanged ch ronic right hemidiaphragm elevation. The cardiac silhouette size is within normal limits. The osseo us structures are intact. Mild multilevel degenerative changes of the thoracic spine are seen. IMPRESSION: No acute cardiopulmonary process.
[2018-01-28 09:38] LABS: Basophils % (A) 1 %; Eosinophils # (A) 0.2 k/uL (0-0.7); Eosinophils % (A) 3 %; HCT 44.8 % (34.0-46.0); HGB 15.2 gm/dL (11.4-16.0); Lymphocytes # (A) 1.4 k/uL (1.0-4.8); Lymphocytes % (A) 23 %; MCH 31.5 pg (25.0-35.0); MCHC 33.8 g/dL (31.0-37.0); MCV 93.2 fL (80.0-100.0); Mean Platelet Volume 8.6; Monocytes # (A) 0.3 k/uL (0-1.0); Monocytes % (A) 4 %; Neutrophils # (A) 4.1 k/uL (1.3-7.7); Neutrophils % (A) 68 %; Platelet Count 269 k/uL (150-450); RBC 4.81 m/uL (3.80-5.40); RDW 12.6 % (11.5-15.5); WBC 6.1 k/uL (3.8-10.6)
[2018-01-28 09:42] LABS: Appearance,Urine Clear (Clear); Bilirubin,Urine Negative (Negative); Blood,Urine Negative (Negative); Color,Urine Yellow; Glucose,Urine (UA) 3+ (Negative); Ketones,Urine Trace (Negative); Leukocyte Esterase,Urine Negative (Negative); Nitrite,Urine Negative (Negative); Protein,Urine Trace (Negative); Specific Gravity,Urine 1.017 (1.001-1.035); Urobilinogen,Urine <2.0 mg/dL (<2.0)
[2018-01-28 11:43] VITALS: BP 135/76; PULSE 89; RESP 19; TEMP 98.5
== END 2018-01-28 11:43 | disposition home or self-care (01) ==
LOC: EC 08:16
DX: R42 Dizziness and giddiness (principal); R94.31 Abnormal electrocardiogram [ECG] [EKG]; H55.00 Unspecified nystagmus; R11.0 Nausea; R06.4 Hyperventilation; E78.5 Hyperlipidemia, unspecified; I10 Essential (primary) hypertension; E11.9 Type 2 diabetes mellitus without complications; F41.9 Anxiety disorder, unspecified; F17.200 Nicotine dependence, unspecified, uncomplicated; Z79.84 Long term (current) use of oral hypoglycemic drugs; Z79.899 Other long term (current) drug therapy
CPT/HCPCS: 36415; 93005; 80053; 84484; 85025; 81003; 71046; 99284; 96374; 96375; 96361 ×3; J1200; J2405

== ENCOUNTER 2018-05-30 10:42 | Emergency (ER) | payer OTHER ==
[2018-05-30 10:46] VITALS: RESP 20
[2018-05-30] MEDS ORDERED: methylPREDNISolone SOD SUCCI 125 MG/2 ML VIAL IV STA (10:50)
[2018-05-30] MEDS ORDERED: FAMOTIDINE 20 MG/2 ML VIAL IV STA (10:50)
[2018-05-30] MEDS ORDERED: diphenhydrAMINE 50 MG/ML 1 ML VIAL IVP STA (10:50)
[2018-05-30] MEDS ORDERED: SODIUM CHLORIDE 0.9% 1,000 ML IV ONE (10:51)
--- NOTE | 2018-05-30 11:11 | ED ---
Allergic Reaction HPI - General Chief complaint: Allergic Reaction Stated complaint: itchy all over/rash Time Seen by Provider: 05/30/18 10:48 Source: patient Mode of arrival: ambulatory Limitations: no limitations - History of Present Illness Initial Comments: 52-year-old female past medical history of hypertension, hyperlipidemia and diabetes presenting today for chief complaint of itchy rash. Patient states she was itchy rash on her abdomen and her chest. She states began shortly after eating almond, soy and wosabi. She states in the past she has had ALLERGIC reaction to almonds however she has since had them frequently and had no issues. Denies any diarrhea, tongue swelling, lip swelling, facial swelling or involvement, difficulty breathing or swallowing. Patient does she does have some itchiness of the mouth. Remaining ROS negative, patient denies any recent fever, chills, shortness of breath, chest pain, back pain, abdominal pain, nausea or vomiting, numbness or tingling, dysuria or hematuria, constipation or diarrhea, headaches or visual changes, or any other complaints. Upon arrival patient does not appear in acute distress, there is no obvious swelling of the face or tongue. - Related Data Home Medications Medication Instructions Recorded Confirmed Escitalopram [Lexapro] 10 mg PO DAILY 07/15/17 01/28/18 Estradiol [Estradiol 0.1 MG Patch] 1 patch TRANSDERM FR 07/15/17 01/28/18 Lisinopril [Prinivil] 10 mg PO PC-LUNCH 07/15/17 01/28/18 Progesterone, Micronized 200 mg PO DAILY 07/15/17 01/28/18 [Progesterone] glipiZIDE [Glucotrol] 10 mg PO AC-BRKFST 07/15/17 01/28/18 metFORMIN HCL [metFORMIN HCL ER] 1,000 mg PO DAILY 07/15/17 01/28/18 sitaGLIPtin [Januvia] 100 mg PO DAILY 07/15/17 01/28/18 ALPRAZolam [Xanax] 0.25 mg PO BID PRN 01/28/18 01/28/18 Acetaminophen [Tylenol Extra 500 mg PO Q6HR PRN 01/28/18 01/28/18 Strength] Atorvastatin [Lipitor] 20 mg PO HS 01/28/18 01/28/18 Previous Rx's Medication Instructions Recorded Meclizine [Antivert] 25 mg PO TID #20 tab 01/28/18 Ondansetron Odt [Zofran Odt] 4 mg PO Q8HR PRN #12 tab 01/28/18 predniSONE 20 mg PO BID 4 Days #8 tab 05/30/18 Allergies Allergy/AdvReac Type Severity Reaction Status Date / Time No Known Allergies Allergy Verified 05/30/18 10:46 Review of Systems ROS Statement: Those systems with pertinent positive or pertinent negative responses have been documented in the HPI. ROS Other: All systems not noted in ROS Statement are negative. Past Medical History Past Medical History: Diabetes Mellitus, Hyperlipidemia, Hypertension, Thyroid Disorder History of Any Multi-Drug Resistant Organisms: None Reported Past Surgical History: Bladder Surgery, Orthopedic Surgery, Tonsillectomy, Tubal Ligation, Uterine Ablation Additional Past Surgical History / Comment(s): thyroidectomy. CYST REMOVED FROM BACK. RT KNEE SX Past Anesthesia/Blood Transfusion Reactions: Postoperative Nausea & Vomiting ( PONV) Past Psychological History: Anxiety Smoking Status: Current some day smoker Past Alcohol Use History: Rare Past Drug Use History: None Reported - Past Family History Mother Family Medical History: Diabetes Mellitus Father Additional Family Medical History / Comment(s): stents placed General Exam - General Exam Comments Initial Comments: General: The patient is awake and alert, in no distress, and does not appear acutely ill. Eye: Pupils are equal, round and reactive to light, extra-ocular movements are intact. No nystagmus. There is normal conjunctiva bilaterally. No signs of icterus. Ears, nose, mouth and throat: There are moist mucous membranes and no oral lesions. No lip swelling, no tongue swelling no difficulty swallowing. No swelling of the neck or face. No involvement of rash on face Neck: The neck is supple, there is no tenderness or JVD. Cardiovascular: There is a regular rate and rhythm. No murmur, rub or gallop is appreciated. Respiratory: Lungs are clear to auscultation, respirations are non-labored, breath sounds are equal. No wheezes, stridor, rales, or rhonchi. Signs of respiratory distress. Gastrointestinal: Soft, non-distended, non-tender abdomen without masses or organomegaly noted. There is no rebound or guarding present. . Bowel sounds are unremarkable. Musculoskeletal: Normal ROM, no tenderness. Strength 5/5. Sensation intact. Pulses equal bilaterally 2+. Neurological: A&O x 3. CN II-XII intact, There are no obvious motor or sensory deficits. Coordination appears grossly intact. Speech is normal. Skin: Skin is warm and dry. Raised macular wheal, erythematous that is blanchable on the chest and abdomen. Psychiatric: Cooperative, appropriate mood & affect, normal judgment. Limitations: no limitations Course Vital Signs 05/30/18 10:44 Temperature 97.6 F Pulse Rate 115 H Respiratory 20 Rate Blood Pressure 179/84 O2 Sat by Pulse 97 Oximetry Medical Decision Making - Medical Decision Making 52-year-old presenting with dysuria. Patient did eat almonds today and has had previous allergic reaction. Patient given sign Benadryl, Pepcid and Benadryl. This resolved the rash within 30 minutes, there was no longer itchiness. Patient states she feels tired from the Benadryl however symptoms have subsided. Patient was monitored for an additional 45 minutes to an hour after resolution of rash, no recurrence of symptoms. Patient continues to remain asymptomatic. No signs concerning for anaphylaxis. At this time I do feel patient is stable for discharge with prescription for prednisone and outpatient allergy testing as well as follow-up with primary care provider. Plan was discussed with patient as well as attending provider all agreeable with plan and discharge. Patient was discharged appearing well. Disposition Clinical Impression: Allergic reaction Disposition: HOME SELF-CARE Condition: Good Instructions (If sedation given, give patient instructions): Food Allergy (ED) , General Allergic Reaction (ED), Allergy Testing (ED) Additional Instructions: Please use medication as discussed. Please follow-up with family doctor in the next 2 days, I recommend allergy testing and avoidance of nuts. Please return to emergency room if the symptoms increase or worsen or for any other concerns. Prescriptions: predniSONE 20 mg PO BID 4 Days #8 tab Is patient prescribed a controlled substance at d/c from ED?: No Referrals: Kami Glasgow DO [Primary Care Provider] - 1-2 days Time of Disposition: 11:34
[2018-05-30 12:58] VITALS: BP 126/80; PULSE 96; TEMP 97.7
== END 2018-05-30 12:58 | disposition home or self-care (01) ==
LOC: EC 10:42
DX: T78.1XXA Other adverse food reactions, not elsewhere classified, initial encounter (principal); L29.9 Pruritus, unspecified; R30.0 Dysuria; E11.9 Type 2 diabetes mellitus without complications; E78.5 Hyperlipidemia, unspecified; I10 Essential (primary) hypertension; F41.9 Anxiety disorder, unspecified; F17.200 Nicotine dependence, unspecified, uncomplicated; Z79.890 Hormone replacement therapy; Z79.84 Long term (current) use of oral hypoglycemic drugs; Z79.899 Other long term (current) drug therapy
CPT/HCPCS: 99282; 96374; 96375 ×2; 96361; J1200; J2930

== ENCOUNTER → 2018-06-16 | Outpatient (CLI) | payer OTHER ==
--- NOTE | 2018-06-17 11:42 | US ---
EXAMINATION TYPE: US pelvic complete DATE OF EXAM: 06/16/2018 COMPARISON: 02/27/2017 CLINICAL HISTORY: R10.2 Pelvic Pain. General pelvic pain, hx of endometrial ablation x 10 years ago. Patient unable to hold bladder- limited transabdominal visualization TECHNIQUE: Transvaginal (TV) and Transabdominal (TA) . Transabdominal sonographic images of the pel vis were acquired. Transvaginal sonographic images were medically necessary to better assess the fol lowing anatomy: Ovaries Date of LMP: Postmenopausal, EXAM MEASUREMENTS: Uterus: 8.4 x 5.0 x 42 cm Endometrial Stripe: 0.2 cm 1. Uterus: Anteverted Appears heterogenous, no focal lesions visualized 2. Endometrium: limited due to hx of ablation 3. Right Ovary: Obscured by overlying bowel gas 4. Left Ovary: Obscured by overlying bowel gas 5. Bilateral Adnexa: wnl 6. Posterior cul-de-sac: no free fluid IMPRESSION: 1. 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 Adenomyosis is also in the differential. Findings could be further evaluated with pelvic MRI with and without contrast. 2. Endometrium is poorly defined but does not appear grossly thickened. 3. Obscuration of the bilateral ovaries by bowel gas.
== END | disposition home or self-care (01) ==
LOC: RADUSWWP 15:29
PROVIDERS: ATTEND Family Medicine
DX: N85.8 Other specified noninflammatory disorders of uterus (principal)
CPT/HCPCS: 76830; 76856

== ENCOUNTER → 2018-06-17 | Outpatient (CLI) | payer OTHER ==
--- NOTE | 2018-06-18 10:21 | MM ---
Reason for exam: screening (asymptomatic). Last mammogram was performed 1 year and 4 months ago. History: Family history of ovarian cancer in maternal grandmother and breast cancer in paternal aunt. Reductions of both breasts, 2011. Physical Findings: A clinical breast exam by your physician is recommended on an annual basis and results should be correlated with mammographic findings. MG Screening Mammo w CAD Bilateral CC and MLO view(s) were taken. Prior study comparison: February 18, 2017, bilateral MG screening mammo w CAD. October 03, 2015, bilateral MG screening mammo w CAD. There are scattered fibroglandular densities. Benign appearing bilateral calcifications. There is chronic nodularity in the right breast, stable. No significant changes when compared with prior studies. ASSESSMENT: Benign, BI-RAD 2 RECOMMENDATION: Routine screening mammogram of both breasts in 1 year.
== END | disposition home or self-care (01) ==
LOC: RADMAMWWP 16:27
PROVIDERS: ATTEND Family Medicine
DX: Z12.31 Encounter for screening mammogram for malignant neoplasm of breast (principal)
CPT/HCPCS: 77067

== ENCOUNTER → 2018-07-24 | Outpatient (CLI) | payer OTHER ==
[2018-07-24 09:04] LABS: Basophils # (A) 0.1 k/uL (0-0.2); Basophils % (A) 1 %; Eosinophils # (A) 0.2 k/uL (0-0.7); Eosinophils % (A) 4 %; HCT 48.2 % (34.0-46.0); HGB 15.7 gm/dL (11.4-16.0); Lymphocytes # (A) 1.8 k/uL (1.0-4.8); Lymphocytes % (A) 33 %; MCH 30.7 pg (25.0-35.0); MCHC 32.5 g/dL (31.0-37.0); MCV 94.5 fL (80.0-100.0); Mean Platelet Volume 8.6; Monocytes # (A) 0.3 k/uL (0-1.0); Monocytes % (A) 5 %; Neutrophils # (A) 3.2 k/uL (1.3-7.7); Neutrophils % (A) 57 %; Platelet Count 275 k/uL (150-450); RBC 5.11 m/uL (3.80-5.40); RDW 12.1 % (11.5-15.5); WBC 5.6 k/uL (3.8-10.6)
[2018-07-24 16:40] LABS: Albumin 4.7 g/dL (3.80-4.90); Albumin/Globulin Ratio 2.24 (1.60-3.17); Anion Gap 10.3 mmol/L (4.00-12.00); Calcium 9.8 mg/dL (8.7-10.3); Carbon Dioxide 28.7 mmol/L (21.6-31.8); Globulin 2.1 g/dL (1.6-3.3); LDL Cholesterol,Calculated 81.8 mg/dL (0.0-131.0); Total Bilirubin 0.4 mg/dL (0.2-1.2); Total Protein 6.8 g/dL (6.2-8.2); VLDL Calculation 27.2 mg/dL (5.00-40.00)
[2018-07-24 20:45] LABS: Hemoglobin A1C 11.6 % (4.0-6.0)
== END | disposition home or self-care (01) ==
LOC: LABWHC1 08:32
PROVIDERS: ATTEND Family Medicine
DX: I10 Essential (primary) hypertension (principal); E78.5 Hyperlipidemia, unspecified; E11.9 Type 2 diabetes mellitus without complications
CPT/HCPCS: 36415; 80053; 80061; 83036; 85025

== ENCOUNTER → 2018-07-28 | Outpatient (CLI) | payer OTHER ==
--- NOTE | 2018-07-29 15:28 | MR ---
EXAMINATION TYPE: MR knee LT wo con DATE OF EXAM: 07/28/2018 COMPARISON: Left HISTORY: Left knee pain/effusion TECHNIQUE: Multiplanar, multisequence imaging of the left knee is performed without IV contrast. FINDINGS: MEDIAL MENISCUS: There is a radial tear of the free edge of the posterior horn of the medial meniscus with oblique component contiguous with the inferior articular surface and intrameniscal signal robbin tible with myxoid degeneration. This tear extends into the meniscal body and meniscal root. Anterior horn appears intact. LATERAL MENISCUS: No discrete tear is seen of the anterior and posterior horns are intact however the re is some meniscal degeneration at the root with increased signal of the posterior root. CRUCIATE LIGAMENTS: The anterior and posterior cruciate ligaments are intact. However there is high s ignal throughout the anterior cruciate ligament compatible with moderate grade sprain. COLLATERAL LIGAMENTS: The medial collateral ligament and lateral collateral ligament complex are inta ct. There is high signal superficial to the medial collateral ligament suggesting medial collateral l igament bursitis. No discontinuity the medial collateral ligament is seen. EXTENSOR MECHANISM: Visualized quadriceps and patellar tendons are intact. There is minimal increased signal in the insertional fibers of the quadriceps tendon and originating fibers of the patellar ten don. There is mild overlying prepatellar subcutaneous soft tissue swelling. Incomplete fat saturation is seen over the patella as there is no abnormal patellar T1 signal to suggest bone marrow edema. EFFUSION: There is a very small suprapatellar joint effusion without internal complexity. POPLITEAL CYST: No popliteal/christy cyst. However there is a ganglion noted posterior to the inferior margin of the posterior cruciate ligament. TRICOMPARTMENT SPACES: There is mild medial compartment joint space narrowing. Additionally there is subchondral cystic change seen of the medial tibial plateau at its most medial aspect in midportion d eep to a full-thickness chondral defect measuring 9 mm low the meniscus. CARTILAGE: Full-thickness chondral defect of the medial tibial plateau as described above with near f ull-thickness chondral defect of the weightbearing surface of the medial femoral condyle measuring 1. 6 cm. Early subchondral cystic change is also seen of the posterior and 9 medial femoral condyle near its lateral aspect. Lateral compartment cartilage is slightly heterogenous and thickened without focal defect. Patellofemoral cartilage displays no focal defect. BONE MARROW SIGNAL: Subchondral cystic change of the medial compartment, otherwise unremarkable. IMPRESSION: 1. Complex tear of the posterior horn of the medial meniscus extending into the meniscal root and men iscal body. No discontinuity the meniscal root. 2. Meniscal degeneration/myxoid degeneration of the posterior root of the lateral meniscus. 3. Full-thickness chondral defect of the weightbearing surface of the medial femoral condyle and most medial aspect of the medial tibial plateau deep to the medial meniscal tear bulge resulting in subch ondral cystic change. 4. Mid grade anterior cruciate ligament sprain without discontinuity. 5. Findings suggesting mild medial collateral ligament bursitis. 6. Mild quadriceps insertional tendinosis and patellar tendinosis of the originating fibers with mini mal overlying prepatellar subcutaneous edema.
== END ==
LOC: RADMRIMAIN 15:29
PROVIDERS: ATTEND Orthopaedic Surgery Sports Medicine
DX: M17.12 Unilateral primary osteoarthritis, left knee (principal); S83.242A Other tear of medial meniscus, current injury, left knee, initial encounter; S83.512A Sprain of anterior cruciate ligament of left knee, initial encounter; M76.52 Patellar tendinitis, left knee; M25.862 Other specified joint disorders, left knee

== ENCOUNTER 2018-08-25 11:17 | Day surgery (SDC) | payer OTHER ==
[2018-08-20 14:48] VITALS: BMI 37.8
[~2018-08-25 11:17] MED LIST changes: +DEXAMETHASONE SOD PHOSPHATE 10 MG/ML 1 ML VIAL IV ONE; +HYDROmorphone 0.5 MG/0.5 ML SYRINGE IVP PRN; +MIDAZOLAM 2 MG/2 ML VIAL IV PRN; +ONDANSETRON 4 MG/2 ML VIAL IVP ONE; +SCOPOLAMINE 1.5MG/72HR PATCH TRANSDERM ONE; +ceFAZolin IN SWFI 2 GM/20 ML SYRINGE IVP ONE
[2018-08-25 11:59] LABS: Glucose,Whole Blood 213 mg/dL (75-99)
[2018-08-25] MEDS ORDERED: NEOSTIGMINE 1 MG/ML 10 ML VIAL ONE (12:57)
[2018-08-25] MEDS ORDERED: GLYCOPYRROLATE 0.2 MG/ML 2 ML VIAL ONE (12:57)
[2018-08-25] MEDS ORDERED: ONDANSETRON 4 MG/2 ML VIAL ONE (12:57)
[2018-08-25] MEDS ORDERED: SUCCINYLCHOLINE CHLORIDE 100 MG/5 ML SYR IV ONE (12:57)
[2018-08-25] MEDS ORDERED: DEXAMETHASONE SOD PHOS (MDV) 100 MG/10 ML VIAL ONE (12:57)
[2018-08-25] MEDS ORDERED: MIDAZOLAM 2 MG/2 ML VIAL ONE (12:57)
[2018-08-25] MEDS ORDERED: LIDOCAINE 1% INJ 10MG/ML (20 ML MDV) ONE (12:57)
[2018-08-25] MEDS ORDERED: ROCURONIUM BROMIDE 10 MG/ML 10 ML VIAL IV ONE (12:57)
[2018-08-25] MEDS ORDERED: fentaNYL (PF) 50 MCG/ML 2 ML AMP ONE (12:57)
[2018-08-25] MEDS ORDERED: PROPOFOL 10 MG/ML 20 ML VIAL IV ONE (12:57)
[2018-08-25] MEDS ORDERED: BUPIVACAIN-EPI 0.5%-1:200,000 30 ML VIAL SQ ONE (13:34)
[2018-08-25] MEDS ORDERED: LACTATED RINGERS 1,000 ML IV ONE (13:41)
[2018-08-25 14:12] VITALS: TEMP 97.4
[2018-08-25 14:46] LABS: Glucose,Whole Blood 262 mg/dL (75-99)
[2018-08-25 15:25] VITALS: RESP 18
[2018-08-25 15:34] VITALS: BP 118/65; PULSE 71
--- NOTE | 2018-08-26 07:27 | OP ---
OPERATIVE REPORT DATE OF PROCEDURE: 08/25/2018 PREOPERATIVE DIAGNOSIS: Left knee medial meniscus tear. POSTOPERATIVE DIAGNOSES: 1. Left knee posterior horn medial meniscus tear. 2. Left knee thickened infrapatellar and medial shelf plica. PROCEDURE PERFORMED: 1. Left knee arthroscopic partial medial meniscectomy. 2. Left knee arthroscopic lysis of adhesions. SURGEON: Ari Ybarra MD. ANESTHESIA: General endotracheal. ESTIMATED BLOOD LOSS: Minimal. TOURNIQUET: None. DRAINS: None. COMPLICATIONS: None apparent. DISPOSITION: Postanesthesia care unit. INDICATIONS: Jeannette is a 52-year-old female with a twisting injury to her left knee. Physical examination and MRI are consistent with tearing of the posterior horn of the medial meniscus. 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 A long discussion with her with regards to treatment options. She has been through a fairly long course of nonoperative treatment. At this point, she feels that she has failed conservative management and would like to proceed with operative intervention. The risks were explained to the patient which include, but are not limited to risk of infection, nerve damage, bleeding, pain, and a small risk of deep vein thrombosis which could lead to fatal pulmonary embolism. The patient understands these risks and wished to proceed with surgical procedure. Examination under anesthesia range of motion right full, left full, effusion right none, left none. Silvana's right normal good end point, left normal good end point. Pivot shift right grade 0, left grade 0. Posterior drawer right normal good end point, left normal good end point. Varus laxity right none, left none. Valgus laxity right none, left none. External rotation right normal, left normal. ARTHROSCOPIC FINDINGS: Superior pouch was normal. Medial gutter: Thickened medial shelf plica. Lateral gutter was normal. Patella: Diffuse grade 1 change. Trochlea: She had an area of grade 3 change on the lateral aspect of the trochlea. The remaining trochlear showed grade 1 to 2 change. Patellar tracking was normal. Medial femoral condyle diffuse grade 2 to 3 change on the weightbearing surface of the medial femoral condyle. Medial tibial plateau, mild grade 2 change. Medial meniscus complex tear posterior horn of the medial meniscus. Lateral femoral condyle normal chondral surfaces. Lateral tibial plateau mild grade 1 change. Lateral meniscus was normal. Anterior cruciate ligament normal. Posterior cruciate ligament normal. Infrapatellar notch thickened infrapatellar plica . DETAILS OF THE PROCEDURE: The patient identified in the preoperative holding area. Surgical site was marked by both the patient and myself. She was given 2 grams of Ancef IV for prophylactic purposes. She was then transported to the operative suite. She was placed supine on the operating room table. General anesthetic was then administered and dosed per the anesthesia department without apparent complication. Examination under anesthesia was then performed of both knees. The findings noted above. The tourniquet was not placed on the left upper thigh. The left lower extremity then prepped and draped in usual sterile fashion. Standard surgical pause undertaken to ensure that we were operating on the correct site and that appropriate preoperative antibiotics had given. All staff in the room in agreement, we proceeded. The knee was then insufflated with 120 mL sterile saline solution. This was done to gradually distend the joint. A standard inferolateral portal was then made. A 30- degree arthroscope was introduced in the suprapatellar pouch. The arthroscopic pump pressure was set to 60 mmHg and maintained at that level throughout the entire case. Next utilizing an 18-gauge spinal needle topical localized placement, the inferomedial port was made under direct visualization. A standard diagnostic arthroscopy of the knee was then performed. The findings were noted as above. Attention was first drawn to the infrapatellar notch. She had a very thickened infrapatellar plica as well as thickened medial shelf plica. This released with a biter and debrided back to a stable tissue utilizing synovial shaver. Attention then drawn to the the medial compartment of the knee. She had a complex tear of the posterior horn of the medial meniscus. This tear was quite macerated and deemed irreparable. The meniscus tear was then debrided with a combination of biter and synovial shaver back to stable tissue. Approximately 50% of the posterior horn of the medial meniscus remained intact after debridement. Next, the arthroscope was placed medial to the posterior cruciate ligament through the notch in the posterior medial compartment of the knee. There was no residual flap tears or loose bodies noted per. The posterior root attachment was carefully inspected and found to be intact. The anterior root attachment was also inspected and found to be intact. At this point time no further work was deemed necessary. The knee was thoroughly irrigated and drained in outflow cannula. The arthroscope was removed from the knee. The arthroscopic portals were then closed with 3-0 nylon interrupted suture. Sterile compressive dressing was then applied. All sponge and needle counts were deemed correct prior to closure. The patient tolerated the procedure without apparent complication. She was transferred to the recovery room in stable condition. MMODL / JACLYNN: [id number] /
== END 2018-08-25 15:48 | disposition home or self-care (01) ==
LOC: OR 11:17
PROVIDERS: ATTEND Orthopaedic Surgery Sports Medicine
DX: S83.242A Other tear of medial meniscus, current injury, left knee, initial encounter (principal); X50.1XXA Overexertion from prolonged static or awkward postures, initial encounter; M94.262 Chondromalacia, left knee; M67.52 Plica syndrome, left knee; E78.5 Hyperlipidemia, unspecified; F32.9 Major depressive disorder, single episode, unspecified; K21.9 Gastro-esophageal reflux disease without esophagitis; E11.9 Type 2 diabetes mellitus without complications; Z79.84 Long term (current) use of oral hypoglycemic drugs; Z83.3 Family history of diabetes mellitus; Z79.899 Other long term (current) drug therapy; Z79.890 Hormone replacement therapy
CPT/HCPCS: 29881; J2250; J1100 ×2; J2710; J2405; J2001; J3010; J0330; J2704; J0690

== ENCOUNTER → 2019-03-18 | Outpatient (CLI) | payer OTHER ==
[2019-03-18 20:09] LABS: Hemoglobin A1C 10.3 % (4.0-6.0)
== END | disposition home or self-care (01) ==
LOC: LABWHC1 09:37
PROVIDERS: ATTEND Family Medicine
DX: E11.9 Type 2 diabetes mellitus without complications (principal)
CPT/HCPCS: 36415; 83036

== ENCOUNTER → 2020-03-23 | Outpatient (CLI) | payer OTHER ==
--- NOTE | 2020-03-26 13:50 | MM ---
Reason for exam: screening (asymptomatic). Last mammogram was performed 1 year and 9 months ago. History: Family history of ovarian cancer in maternal grandmother and breast cancer in paternal aunt. Reductions of both breasts, 2011. Taking estrogen beginning at age 51. Physical Findings: A clinical breast exam by your physician is recommended on an annual basis and results should be correlated with mammographic findings. MG Screening Mammo w CAD Bilateral CC and MLO view(s) were taken. Prior study comparison: June 17, 2018, bilateral MG screening mammo w CAD. February 18, 2017, bilateral MG screening mammo w CAD. There are scattered fibroglandular densities. There are benign appearing round dystrophic calcifications bilaterally. There is no discrete abnormality. ASSESSMENT: Benign, BI-RAD 2 RECOMMENDATION: Routine screening mammogram of both breasts in 1 year.
== END | disposition home or self-care (01) ==
LOC: RADMAMWWP 09:48
PROVIDERS: ATTEND Obstetrics & Gynecology
DX: Z12.31 Encounter for screening mammogram for malignant neoplasm of breast (principal); Z80.3 Family history of malignant neoplasm of breast
CPT/HCPCS: 77067

== ENCOUNTER → 2020-07-20 | Outpatient (CLI) | payer OTHER ==
--- NOTE | 2020-07-20 13:28 | XR ---
EXAMINATION TYPE: XR chest 2V DATE OF EXAM: 07/20/2020 COMPARISON: 01/28/2018 INDICATION: COVID TECHNIQUE: Frontal and lateral views of the chest are obtained. FINDINGS: The heart size is normal. The pulmonary vasculature is normal. The lungs are clear. Spondylosis of the thoracic spine. IMPRESSION: 1. No acute pulmonary process.
== END | disposition home or self-care (01) ==
LOC: RADXRMAIN 12:14
PROVIDERS: ATTEND Family Medicine
DX: U07.1 COVID-19 (principal)
CPT/HCPCS: 71046

== ENCOUNTER 2020-08-08 23:34 | Emergency (ER) | payer OTHER ==
[2020-08-08 23:46] VITALS: BP 164/71; PULSE 92; RESP 20; TEMP 97.9
[2020-08-09] MEDS ORDERED: AMOXIC-POT CLAV 875-125MG 1 EACH TAB PO STA (00:37)
[2020-08-09] MEDS ORDERED: IBUPROFEN 800 MG TAB PO STA (00:37)
[2020-08-09] MEDS ORDERED: AMOXIC-POT CLAV 875MG STARTER PACK 2 TAB BTL PO STA (00:37)
--- NOTE | 2020-08-09 00:38 | ED ---
Female Urogenital HPI - General Chief complaint: Abdominal Pain Stated complaint: Urogenital Time Seen by Provider: 08/08/20 23:48 Source: patient Mode of arrival: ambulatory Limitations: no limitations - Related Data Home Medications Medication Instructions Recorded Confirmed Escitalopram [Lexapro] 10 mg PO QAM 07/15/17 08/25/18 Lisinopril [Prinivil] 10 mg PO QAM 07/15/17 08/25/18 Progesterone, Micronized 200 mg PO DAILY 07/15/17 08/25/18 [Progesterone] estradioL [Estradiol 0.1 MG Patch] 1 patch TRANSDERM SA 07/15/17 08/25/18 glipiZIDE [Glucotrol] 10 mg PO AC-BRKFST 07/15/17 08/25/18 metFORMIN HCL [metFORMIN HCL ER] 1,000 mg PO BID 07/15/17 08/25/18 sitaGLIPtin [Januvia] 100 mg PO QAM 07/15/17 08/25/18 ALPRAZolam [Xanax] 0.25 mg PO BID PRN 01/28/18 08/25/18 Acetaminophen [Tylenol Extra 500 mg PO Q6HR PRN 01/28/18 08/25/18 Strength] Atorvastatin [Lipitor] 20 mg PO HS 01/28/18 08/25/18 Omeprazole (Unknown Dose) 1 tab PO QAM 08/20/18 08/25/18 Previous Rx's Medication Instructions Recorded HYDROcodone/APAP 5-325MG [[place] 1 tab PO Q4HR PRN #42 tab 08/25/18 5-325] Allergies Allergy/AdvReac Type Severity Reaction Status Date / Time No Known Allergies Allergy Verified 08/08/20 23:46 Review of Systems ROS Statement: Those systems with pertinent positive or pertinent negative responses have been documented in the HPI. ROS Other: All systems not noted in ROS Statement are negative. Past Medical History Past Medical History: Diabetes Mellitus, GERD/Reflux, Hyperlipidemia, Hypertension, Thyroid Disorder Additional Past Medical History / Comment(s): Unsure of what was wrong with her thyroid, states half of it was removed. History of Any Multi-Drug Resistant Organisms: None Reported Past Surgical History: Bladder Surgery, Orthopedic Surgery, Tonsillectomy, Tubal Ligation, Uterine Ablation Additional Past Surgical History / Comment(s): Partial thyroidectomy, CYST REMOVED FROM BACK, RIGHT KNEE SURGERY. Past Anesthesia/Blood Transfusion Reactions: Postoperative Nausea & Vomiting (PONV) Past Psychological History: No Psychological Hx Reported Smoking Status: Never smoker Past Alcohol Use History: Rare Past Drug Use History: None Reported - Past Family History Mother Family Medical History: Diabetes Mellitus Father Additional Family Medical History / Comment(s): stents placed General Exam Limitations: no limitations Course Vital Signs 08/08/20 23:42 Temperature 97.9 F Pulse Rate 92 Respiratory 20 Rate Blood Pressure 164/71 O2 Sat by Pulse 99 Oximetry Disposition Clinical Impression: UTI (urinary tract infection) Disposition: HOME SELF-CARE Condition: Good Instructions (If sedation given, give patient instructions): Urinary Tract Infection in Women (ED) Is patient prescribed a controlled substance at d/c from ED?: No Referrals: Kami Glasgow DO [Primary Care Provider] - 1-2 days
[2020-08-09] MEDS ORDERED: PHENAZOPYRIDINE 200 MG TAB PO STA (00:39)
[2020-08-09 01:39] LABS: Appearance,Urine Turbid (Clear); Bacteria,Urine Occasional /hpf; Bilirubin,Urine Negative (Negative); Blood,Urine Large (Negative); Color,Urine Light Red; Glucose,Urine (UA) 4+ (Negative); Ketones,Urine Trace (Negative); Leukocyte Esterase,Urine Large (Negative); Nitrite,Urine Negative (Negative); Protein,Urine 2+ (Negative); RBC,Urine >182 /hpf (0-5); Specific Gravity,Urine 1.019 (1.001-1.035); Squamous Epithelial Cell,Urine 4 /hpf (0-4); Urobilinogen,Urine <2.0 mg/dL (<2.0); WBC,Urine >182 /hpf (0-5)
== END 2020-08-09 01:24 | disposition home or self-care (01) ==
LOC: EC 23:34
DX: N39.0 Urinary tract infection, site not specified (principal); E11.9 Type 2 diabetes mellitus without complications; K21.9 Gastro-esophageal reflux disease without esophagitis; E78.5 Hyperlipidemia, unspecified; I10 Essential (primary) hypertension; E07.9 Disorder of thyroid, unspecified; Z90.09 Acquired absence of other part of head and neck; Z98.51 Tubal ligation status
CPT/HCPCS: 81001; 87086; 99284

== ENCOUNTER 2020-08-28 20:36 | Emergency (ER) | payer OTHER ==
[2020-08-28 20:59] VITALS: BP 138/73; PULSE 111; RESP 22; TEMP 98.2
[2020-08-28] MEDS ORDERED: IBUPROFEN 600 MG TAB PO STA (21:08)
[2020-08-28] MEDS ORDERED: PHENAZOPYRIDINE 200 MG TAB PO STA (21:08)
--- NOTE | 2020-08-28 21:13 | ED ---
General Adult HPI - General Chief complaint: Abdominal Pain Stated complaint: ABD pain Time Seen by Provider: 08/28/20 21:01 Source: patient Mode of arrival: ambulatory Limitations: no limitations - History of Present Illness Initial comments: Patient is a 54-year-old female presenting to the emergency Department with complaints of possible urinary tract infection. Patient states she was treated a few weeks ago for a UTI, her urine culture came back they needed to switch her antibiotics, she finished a course of that and was doing well for about a week and then just today her symptoms returned. She is having urinary frequency, urgency, dysuria and feeling like she is having spasms of her bladder. She denies any severe abdominal pains, no nausea or vomiting, no fevers or chills. She has no further complaints at this time. Upon arrival to the ER, her vitals are stable. - Related Data Home Medications Medication Instructions Recorded Confirmed Escitalopram [Lexapro] 10 mg PO QAM 07/15/17 08/25/18 Lisinopril [Prinivil] 10 mg PO QAM 07/15/17 08/25/18 Progesterone, Micronized 200 mg PO DAILY 07/15/17 08/25/18 [Progesterone] estradioL [Estradiol 0.1 MG Patch] 1 patch TRANSDERM SA 07/15/17 08/25/18 glipiZIDE [Glucotrol] 10 mg PO AC-BRKFST 07/15/17 08/25/18 metFORMIN HCL [metFORMIN HCL ER] 1,000 mg PO BID 07/15/17 08/25/18 sitaGLIPtin [Januvia] 100 mg PO QAM 07/15/17 08/25/18 ALPRAZolam [Xanax] 0.25 mg PO BID PRN 01/28/18 08/25/18 Acetaminophen [Tylenol Extra 500 mg PO Q6HR PRN 01/28/18 08/25/18 Strength] Atorvastatin [Lipitor] 20 mg PO HS 01/28/18 08/25/18 Omeprazole (Unknown Dose) 1 tab PO QAM 08/20/18 08/25/18 Previous Rx's Medication Instructions Recorded HYDROcodone/APAP 5-325MG [[place] 1 tab PO Q4HR PRN #42 tab 08/25/18 5-325] Amoxic-Pot Clav 875-125Mg 1 tab PO Q12HR #14 tablet 08/09/20 [Augmentin 875-125] Cephalexin [Keflex] 500 mg PO BID 5 Days #10 cap 08/28/20 Phenazopyridine [Pyridium] 200 mg PO TID #6 tablet 08/28/20 Allergies Allergy/AdvReac Type Severity Reaction Status Date / Time No Known Allergies Allergy Verified 08/28/20 20:59 Review of Systems ROS Statement: Those systems with pertinent positive or pertinent negative responses have been documented in the HPI. ROS Other: All systems not noted in ROS Statement are negative. Past Medical History Past Medical History: Diabetes Mellitus, GERD/Reflux, Hyperlipidemia, Hypertension, Thyroid Disorder Additional Past Medical History / Comment(s): Unsure of what was wrong with her thyroid, states half of it was removed. History of Any Multi-Drug Resistant Organisms: None Reported Past Surgical History: Bladder Surgery, Orthopedic Surgery, Tonsillectomy, Tubal Ligation, Uterine Ablation Additional Past Surgical History / Comment(s): Partial thyroidectomy, CYST REMOVED FROM BACK, RIGHT KNEE SURGERY. Past Anesthesia/Blood Transfusion Reactions: Postoperative Nausea & Vomiting (PONV) Past Psychological History: No Psychological Hx Reported Smoking Status: Never smoker Past Alcohol Use History: Rare Past Drug Use History: None Reported - Past Family History Mother Family Medical History: Diabetes Mellitus Father Additional Family Medical History / Comment(s): stents placed General Exam - General Exam Comments Initial Comments: GENERAL: Patient is well-developed and well-nourished. Patient is nontoxic and in no acute distress. HEAD: Atraumatic, normocephalic. EYES: Pupils equal round and reactive to light, extraocular movements intact, sclera anicteric, conjunctiva are normal. Eyelids were unremarkable. ENT: Nares patent, oropharynx clear without exudates. Moist mucous membranes. NECK: Normal range of motion, supple without lymphadenopathy or JVD. LUNGS: Unlabored respirations. Breath sounds clear to auscultation bilaterally and equal. No wheezes rales or rhonchi. HEART: Regular rate and rhythm without murmurs, rubs or gallops. ABDOMEN: Soft, mild discomfort over suprapubic area, no other abdominal pain, normoactive bowel sounds. No guarding, no rebound. No masses appreciated. : Deferred MUSCULOSKELETAL: Normal extremities with adequate strength and normal range of motion, no pitting or edema. No clubbing or cyanosis. NEUROLOGICAL: Patient is alert and oriented x 3. Symmetrical smile. Normal speech, normal gait. PSYCH: Normal mood, normal affect. SKIN: Warm, Dry, normal turgor, no rashes or lesions noted. Limitations: no limitations Course Vital Signs 08/28/20 20:38 Temperature 98.2 F Pulse Rate 111 H Respiratory 22 Rate Blood Pressure 138/73 O2 Sat by Pulse 99 Oximetry Medical Decision Making - Medical Decision Making Patient is a 54-year-old female here with concerns of a UTI that just started today. She was recently seen a few weeks ago for same complaint, finished a course of antibiotics and was feeling fine for about a week until today. Her vitals are stable, no fevers, no nausea or vomiting. Some mild discomfort over suprapubic on exam. Patient's urine today does show hematuria, WBC cells. Urine culture is pending. Given patient's symptoms and urine today, we will give her a gram of Rocephin, start her on Keflex. I'll also send her prescription for Pyridium. Patient is a follow-up with her PCP, possible urology if this is becoming more frequent. She is in agreement with this plan of care. She stable for discharge. Return parameters were discussed with the patient she verbalized understanding. - Lab Data Lab Results 08/28/20 Range/Units 21:16 Urine Color Light Red Urine Appearance Turbid H (Clear) Urine pH 6.0 (5.0-8.0) Ur Specific [place] 1.016 (1.001-1.035) Urine Protein 2+ H (Negative) Urine Glucose (UA) 3+ H (Negative) Urine Ketones Negative (Negative) Urine Blood Large H (Negative) Urine Nitrite Negative (Negative) Urine Bilirubin Negative (Negative) Urine Urobilinogen <2.0 (<2.0) mg/dL Ur Leukocyte Esterase Large H (Negative) Urine RBC 88 H (0-5) /hpf Urine WBC 27 H (0-5) /hpf Ur Squamous Epith Cells <1 (0-4) /hpf Urine Mucus Rare H (None) /hpf Urine Yeast (Budding) Occasional H (None) /hpf Disposition Clinical Impression: UTI (urinary tract infection) Disposition: HOME SELF-CARE Condition: Stable Instructions (If sedation given, give patient instructions): Urinary Tract Infection in Women (ED) Additional Instructions: Please return to the Emergency Department if symptoms worsen or any other concerns. Take antibiotics as prescribed. Please follow-up with your primary care physician. Prescriptions: Cephalexin [Keflex] 500 mg PO BID 5 Days #10 cap Phenazopyridine [Pyridium] 200 mg PO TID #6 tablet Is patient prescribed a controlled substance at d/c from ED?: No Referrals: Kami Glasgow DO [Primary Care Provider] - 1-2 days Time of Disposition: 21:56
[2020-08-28 21:33] LABS: Appearance,Urine Turbid (Clear); Bilirubin,Urine Negative (Negative); Blood,Urine Large (Negative); Budding Yeast,Urine Occasional /hpf; Color,Urine Light Red; Glucose,Urine (UA) 3+ (Negative); Ketones,Urine Negative (Negative); Leukocyte Esterase,Urine Large (Negative); Mucus,Urine Rare /hpf; Nitrite,Urine Negative (Negative); Protein,Urine 2+ (Negative); RBC,Urine 88 /hpf (0-5); Specific Gravity,Urine 1.016 (1.001-1.035); Squamous Epithelial Cell,Urine <1 /hpf (0-4); Urobilinogen,Urine <2.0 mg/dL (<2.0); WBC,Urine 27 /hpf (0-5)
[2020-08-28] MEDS ORDERED: cefTRIAXone 1,000 MG VIAL (IM USE) IM STA (21:52)
== END 2020-08-28 22:10 | disposition home or self-care (01) ==
LOC: EC 20:36
DX: N39.0 Urinary tract infection, site not specified (principal); E11.9 Type 2 diabetes mellitus without complications; E78.5 Hyperlipidemia, unspecified; I10 Essential (primary) hypertension; K21.9 Gastro-esophageal reflux disease without esophagitis; Z79.84 Long term (current) use of oral hypoglycemic drugs; Z83.3 Family history of diabetes mellitus
CPT/HCPCS: 99283; 96372; 81001; 87086; J0696; 87077; 87186

== ENCOUNTER 2020-10-06 19:59 | Emergency (ER) | payer OTHER ==
[2020-10-06 20:02] VITALS: BP 141/81; PULSE 96; RESP 16; TEMP 98
--- NOTE | 2020-10-06 20:11 | ED ---
Female Urogenital HPI - General Chief complaint: Urogenital Stated complaint: UTI Time Seen by Provider: 10/06/20 20:04 Source: patient, RN notes reviewed Mode of arrival: ambulatory Limitations: no limitations - History of Present Illness Initial comments: Patient is a 54-year-old female that presents to emergency room complaining of urinary tract infection symptoms such as frequency dysuria and dribbling. She notes that she gets chronic UTIs and has a follow-up with her specialist on October 29. She notes that she was fine all day today and out of nowhere she had discomfort on urination. So she decided to come in to get a box until she can follow-up with her specialist. She denied any other complaints or issues at this time. She was in no apparent distress while sitting up in a chair during the exam and interview. She denied any chest pain first breath headache nausea vomiting diarrhea constipation fever fatigue chills - Related Data Home Medications Medication Instructions Recorded Confirmed Escitalopram [Lexapro] 10 mg PO QAM 07/15/17 08/25/18 Lisinopril [Prinivil] 10 mg PO QAM 07/15/17 08/25/18 Progesterone, Micronized 200 mg PO DAILY 07/15/17 08/25/18 [Progesterone] estradioL [Estradiol 0.1 MG Patch] 1 patch TRANSDERM SA 07/15/17 08/25/18 glipiZIDE [Glucotrol] 10 mg PO AC-BRKFST 07/15/17 08/25/18 metFORMIN HCL [metFORMIN HCL ER] 1,000 mg PO BID 07/15/17 08/25/18 sitaGLIPtin [Januvia] 100 mg PO QAM 07/15/17 08/25/18 ALPRAZolam [Xanax] 0.25 mg PO BID PRN 01/28/18 08/25/18 Acetaminophen [Tylenol Extra 500 mg PO Q6HR PRN 01/28/18 08/25/18 Strength] Atorvastatin [Lipitor] 20 mg PO HS 01/28/18 08/25/18 Omeprazole (Unknown Dose) 1 tab PO QAM 08/20/18 08/25/18 Previous Rx's Medication Instructions Recorded HYDROcodone/APAP 5-325MG [[place] 1 tab PO Q4HR PRN #42 tab 08/25/18 5-325] Amoxic-Pot Clav 875-125Mg 1 tab PO Q12HR #14 tablet 08/09/20 [Augmentin 875-125] Cephalexin [Keflex] 500 mg PO BID 5 Days #10 cap 08/28/20 Phenazopyridine [Pyridium] 200 mg PO TID #6 tablet 08/28/20 Ciprofloxacin HCl [Cipro] 500 mg PO Q12HR #14 tablet 10/06/20 Allergies Allergy/AdvReac Type Severity Reaction Status Date / Time No Known Allergies Allergy Verified 10/06/20 20:02 Review of Systems ROS Statement: Those systems with pertinent positive or pertinent negative responses have been documented in the HPI. ROS Other: All systems not noted in ROS Statement are negative. Past Medical History Past Medical History: Diabetes Mellitus, GERD/Reflux, Hyperlipidemia, Hypertension, Thyroid Disorder Additional Past Medical History / Comment(s): Unsure of what was wrong with her thyroid, states half of it was removed. History of Any Multi-Drug Resistant Organisms: None Reported Past Surgical History: Bladder Surgery, Orthopedic Surgery, Tonsillectomy, Tubal Ligation, Uterine Ablation Additional Past Surgical History / Comment(s): Partial thyroidectomy, CYST REMOVED FROM BACK, RIGHT KNEE SURGERY. Past Anesthesia/Blood Transfusion Reactions: Postoperative Nausea & Vomiting (PONV) Past Psychological History: No Psychological Hx Reported Smoking Status: Never smoker Past Alcohol Use History: Rare Past Drug Use History: None Reported - Past Family History Mother Family Medical History: Diabetes Mellitus Father Additional Family Medical History / Comment(s): stents placed General Exam Limitations: no limitations General appearance: alert, in no apparent distress, obese Head exam: Present: atraumatic, normocephalic, normal inspection Eye exam: Present: normal appearance, PERRL, EOMI. Absent: scleral icterus, conjunctival injection, periorbital swelling Neck exam: Present: normal inspection Respiratory exam: Present: normal lung sounds bilaterally. Absent: respiratory distress, wheezes, rales, rhonchi, stridor Cardiovascular Exam: Present: regular rate, normal rhythm, normal heart sounds. Absent: systolic murmur, diastolic murmur, rubs, gallop, clicks GI/Abdominal exam: Present: soft, normal bowel sounds. Absent: distended, tenderness, guarding, rebound, rigid Extremities exam: Present: normal inspection, full ROM, normal capillary refill. Absent: tenderness, pedal edema, joint swelling, calf tenderness Neurological exam: Present: alert, oriented X3 Psychiatric exam: Present: normal affect, normal mood Skin exam: Present: warm, dry, intact, normal color. Absent: rash Course Vital Signs 10/06/20 20:00 Temperature 98 F Pulse Rate 96 Respiratory 16 Rate Blood Pressure 141/81 O2 Sat by Pulse 97 Oximetry Medical Decision Making - Medical Decision Making 54-year-old female complaining of urinary tract infection symptoms. Urinalysis with reflex culture ordered. - Lab Data Lab Results 10/06/20 Range/Units 20:22 Urine Color Yellow Urine Appearance Cloudy H (Clear) Urine pH 6.0 (5.0-8.0) Ur Specific [place] 1.021 (1.001-1.035) Urine Protein Trace H (Negative) Urine Glucose (UA) 1+ H (Negative) Urine Ketones Trace H (Negative) Urine Blood Moderate H (Negative) Urine Nitrite Negative (Negative) Urine Bilirubin Negative (Negative) Urine Urobilinogen <2.0 (<2.0) mg/dL Ur Leukocyte Esterase Large H (Negative) Urine RBC 66 H (0-5) /hpf Urine WBC >182 H (0-5) /hpf Urine WBC Clumps Moderate H (None) /hpf Ur Squamous Epith Cells 4 (0-4) /hpf Urine Bacteria Occasional H (None) /hpf Urine Mucus Rare H (None) /hpf Disposition Clinical Impression: Urinary tract infection Disposition: HOME SELF-CARE Condition: Stable Instructions (If sedation given, give patient instructions): Urinary Tract Infection in Women (ED) Additional Instructions: Please return to the Emergency Department if symptoms worsen or any other concerns. Follow-up primary care and specialist as planned. Taken Biaxin as prescribed until complete. Increase oral fluids. Prescriptions: Ciprofloxacin HCl [Cipro] 500 mg PO Q12HR #14 tablet Is patient prescribed a controlled substance at d/c from ED?: No Referrals: Kami Glagsow DO [Primary Care Provider] - 1-2 days Time of Disposition: 21:09
[2020-10-06 20:53] LABS: Appearance,Urine Cloudy (Clear); Bacteria,Urine Occasional /hpf; Bilirubin,Urine Negative (Negative); Blood,Urine Moderate (Negative); Color,Urine Yellow; Glucose,Urine (UA) 1+ (Negative); Ketones,Urine Trace (Negative); Leukocyte Esterase,Urine Large (Negative); Mucus,Urine Rare /hpf; Nitrite,Urine Negative (Negative); Protein,Urine Trace (Negative); RBC,Urine 66 /hpf (0-5); Specific Gravity,Urine 1.021 (1.001-1.035); Squamous Epithelial Cell,Urine 4 /hpf (0-4); Urobilinogen,Urine <2.0 mg/dL (<2.0); WBC,Urine >182 /hpf (0-5)
== END 2020-10-06 21:21 | disposition home or self-care (01) ==
LOC: EC 19:59
DX: N39.0 Urinary tract infection, site not specified (principal); B96.20 Unspecified Escherichia coli [E. coli] as the cause of diseases classified elsewhere; I10 Essential (primary) hypertension; E78.5 Hyperlipidemia, unspecified; E11.9 Type 2 diabetes mellitus without complications; K21.9 Gastro-esophageal reflux disease without esophagitis; Z79.84 Long term (current) use of oral hypoglycemic drugs
CPT/HCPCS: 81001; 87077; 87086; 87186; 99283

== ENCOUNTER → 2020-11-23 | Outpatient (CLI) | payer OTHER ==
--- NOTE | 2020-11-23 12:30 | US ---
EXAMINATION TYPE: US kidneys/renal and bladder DATE OF EXAM: 11/23/2020 COMPARISON: NONE CLINICAL HISTORY: R31.9 HEMATURIA. UTI hematuria EXAM MEASUREMENTS: Right Kidney: 8.4 x 4.5 x 3.8 cm Left Kidney: 9.9 x 4.7 x 3.9 cm Right Kidney: Echogenic area lower pole 1 cm and hypoechoic area upper pole measuring 1.4 x 1.0 x .7 cm. Left Kidney: No hydronephrosis or masses seen Bladder: wnl Bilateral Jets seen: yes IMPRESSION: Nonobstructing lower pole 1 cm right renal calculus. Indeterminate hypoechoic nodule involving the up per right renal cortex too small to characterize could be correlated with MRI or CT scan.
== END | disposition home or self-care (01) ==
LOC: RADUSWWP 10:12
PROVIDERS: ATTEND Urology
DX: N20.0 Calculus of kidney (principal); N39.0 Urinary tract infection, site not specified
CPT/HCPCS: 76770

== ENCOUNTER → 2020-11-29 | Outpatient (CLI) | payer OTHER ==
--- NOTE | 2020-11-29 10:50 | XR ---
EXAMINATION TYPE: XR KUB DATE OF EXAM: 11/29/2020 HISTORY: Pain Comparison: None.Single KUB is submitted for interpretation. Findings: Right renal calculi: Partially obscured calculus right kidney at its lower pole measuring 4 mm Right ureteral calculi: None Visualized. Left renal calculi: None Visualized. Left ureteral calculi: None Visualized. Pelvic calcifications: None Visualized. Bowel gas pattern is unremarkable. No free air. No mass effects. IMPRESSION: 1. Partially obscured calculus right kidney at its lower pole measuring 4 mm
== END | disposition home or self-care (01) ==
LOC: RADXRMAIN 10:02
PROVIDERS: ATTEND Urology
DX: N20.0 Calculus of kidney (principal)
CPT/HCPCS: 74018

== ENCOUNTER → 2020-12-29 | Outpatient (CLI) | payer OTHER ==
--- NOTE | 2020-12-30 10:31 | XR ---
EXAMINATION TYPE: XR lumbar spine 2 or 3V DATE OF EXAM: 12/29/2020 Comparison: None Clinical History: 55-year-old female M54.32 Findings: A 1.2 x 0.5 cm right renal calculus. Hypertrophic facet arthropathy lower lumbar spine. There appears to be a left L5 hemisacralization. Mild multilevel degenerative disc disease. Grade 1 anterolisthesi s of L4-L5. Vertebral body heights are preserved. Impression: 1. Left L5 hemisacralization. 2. Advanced hypertrophic facet arthropathy lower lumbar spine. Degenerative grade 1 anterolisthesis L 4-L5. 3. Mild multilevel degenerative disc disease.
== END | disposition home or self-care (01) ==
LOC: RADXRMAIN 11:33
PROVIDERS: ATTEND Family Medicine
DX: M51.16 Intervertebral disc disorders with radiculopathy, lumbar region (principal); M47.26 Other spondylosis with radiculopathy, lumbar region; M89.38 Hypertrophy of bone, other site; M43.16 Spondylolisthesis, lumbar region
CPT/HCPCS: 72100

== ENCOUNTER → 2021-07-30 | Outpatient (CLI) | payer OTHER | END | disposition home or self-care (01) | LOC: LABWHC1 15:53 | PROVIDERS: ATTEND Family Medicine | DX: N39.0 Urinary tract infection, site not specified (principal) | CPT/HCPCS: 87086 ==

== ENCOUNTER 2021-11-05 14:52 | Emergency (ER) | payer OTHER ==
[2021-11-05 15:38] LABS: Basophils % (A) 1 %; Eosinophils # (A) 0.1 k/uL (0-0.7); Eosinophils % (A) 2 %; HCT 44.2 % (34.0-46.0); HGB 15.2 gm/dL (11.4-16.0); Lymphocytes # (A) 1.6 k/uL (1.0-4.8); Lymphocytes % (A) 33 %; MCH 32.9 pg (25.0-35.0); MCHC 34.4 g/dL (31.0-37.0); MCV 95.6 fL (80.0-100.0); Mean Platelet Volume 9.2; Monocytes # (A) 0.2 k/uL (0-1.0); Monocytes % (A) 5 %; Neutrophils # (A) 2.8 k/uL (1.3-7.7); Neutrophils % (A) 57 %; Platelet Count 256 k/uL (150-450); RBC 4.62 m/uL (3.80-5.40); RDW 12.3 % (11.5-15.5); WBC 4.8 k/uL (3.8-10.6)
[2021-11-05 15:50] LABS: Partial Thromboplastin Time 22.7 sec (22.0-30.0); Prothrombin Time 10.5 sec (9.0-12.0)
[2021-11-05 16:01] LABS: ALT 21 U/L (4-34); AST 20 U/L (14-36); African American GFR (CKD) >90 (>60 ml/min/1.73 sqM); Albumin 4.5 g/dL (3.5-5.0); Alkaline Phosphatase 57 U/L (38-126); Anion Gap 7 mmol/L; Blood Urea Nitrogen 12 mg/dL (7-17); Calcium 9.7 mg/dL (8.4-10.2); Carbon Dioxide 29 mmol/L (22-30); Chloride 100 mmol/L (98-107); Glucose 162 mg/dL (74-99); Non-African American GFR(CKD) >90 (>60 ml/min/1.73 sqM); Potassium 4.1 mmol/L (3.5-5.1); Sodium 136 mmol/L (137-145); Total Bilirubin 0.4 mg/dL (0.2-1.3); Total Protein 7.3 g/dL (6.3-8.2)
--- NOTE | 2021-11-05 16:04 | XR ---
EXAMINATION TYPE: XR chest 2V DATE OF EXAM: 11/05/2021 3:51 PM COMPARISON: Chest radiographs from 07/20/2020. TECHNIQUE: XR chest 2V Frontal and lateral views of the chest. CLINICAL INDICATION:Female, 55 years old with history of chest pain; FINDINGS: Lungs/Pleura: There is no evidence of pleural effusion, focal consolidation, or pneumothorax. Unchan ged chronic elevation of the right hemidiaphragm. Pulmonary vascularity: Unremarkable. Heart/mediastinum: Cardiomediastinal silhouette is unremarkable. Musculoskeletal: Multiple level degenerative disc disease changes seen throughout the spine. No acute osseous abnormality. IMPRESSION: No acute cardiopulmonary disease/process. No significant change prior examination.
[2021-11-05 18:21] VITALS: RESP 16; TEMP 97.6
[2021-11-05] MEDS ORDERED: ASPIRIN 81 MG PO STA (18:29)
[2021-11-05] MEDS ORDERED: KETOROLAC 15 MG/ML 1 ML VIAL IM STA (18:29)
--- NOTE | 2021-11-05 18:29 | ED ---
General Adult HPI - General Chief complaint: Chest Pain Stated complaint: Chest Pain,Back pain Time Seen by Provider: 11/05/21 17:58 Source: patient, RN notes reviewed, old records reviewed Mode of arrival: ambulatory - History of Present Illness Initial comments: Patient is a 55-year-old female with past medical history remarkable for diabetes, hypertension, thyroid disorder who presents emergency Department complaining of chest pain as well as chronic back pain. Describes the chest pain as a sharp sensation located over the sternum. It's reproducible on palpation. Which with stretching and moving. She gets some shortness of breath associated with it. Has a history of anxiety as well. Is uncertain what is causing the current pain. Has been ongoing for the last 2 days. Is improved from 2 days ago. Presents for further evaluation this time after being sent in by her PCP for evaluation. No history of cardiac disease. - Related Data Home Medications Medication Instructions Recorded Confirmed Escitalopram [Lexapro] 10 mg PO DAILY 07/15/17 11/05/21 lisinopriL [Prinivil] 10 mg PO DAILY 07/15/17 11/05/21 sitaGLIPtin [Januvia] 100 mg PO DAILY 07/15/17 11/05/21 Atorvastatin [Lipitor] 20 mg PO DAILY 01/28/18 11/05/21 Dulaglutide [Trulicity] 4.5 mg SQ TH 11/05/21 11/05/21 Omeprazole 20 mg PO DAILY 11/05/21 11/05/21 metFORMIN HCL [Glucophage] 1,000 mg PO DAILY 11/05/21 11/05/21 Previous Rx's Medication Instructions Recorded Ibuprofen 800 mg PO Q8H PRN 7 Days #21 tab 11/05/21 Allergies Allergy/AdvReac Type Severity Reaction Status Date / Time No Known Allergies Allergy Verified 11/05/21 19:20 Review of Systems ROS Statement: Those systems with pertinent positive or pertinent negative responses have been documented in the HPI. Review of Systems: CONST: Denies fever EYES: Denies blurry vision ENT: Denies nasal congestion C/V: Endorses chest pain RESP: Denies shortness of breath GI: Denies abdominal pain : Denies dysuria SKIN: Denies rash. MSK: Denies joint pain. NEURO: Denies headache ROS Other: All systems not noted in ROS Statement are negative. Past Medical History Past Medical History: Diabetes Mellitus, GERD/Reflux, Hyperlipidemia, Hypertension, Thyroid Disorder Additional Past Medical History / Comment(s): Unsure of what was wrong with her thyroid, states half of it was removed. History of Any Multi-Drug Resistant Organisms: None Reported Past Surgical History: Bladder Surgery, Orthopedic Surgery, Tonsillectomy, Tubal Ligation, Uterine Ablation Additional Past Surgical History / Comment(s): Partial thyroidectomy, CYST REMOVED FROM BACK, RIGHT KNEE SURGERY. Past Anesthesia/Blood Transfusion Reactions: Postoperative Nausea & Vomiting (PONV) Past Psychological History: No Psychological Hx Reported Smoking Status: Current some day smoker, Never smoker Past Alcohol Use History: Rare Past Drug Use History: None Reported - Past Family History Mother Family Medical History: Diabetes Mellitus Father Additional Family Medical History / Comment(s): stents placed General Exam - General Exam Comments Initial Comments: General: Appears in no acute distress. HEAD: Normal with no signs of head trauma. EYES: PERRLA, EOMI, conjunctiva normal, no discharge. ENT: Hearing grossly intact, normal oropharynx. RESPIRATORY: Clear breath sounds bilaterally. No wheezes, rales, or rhonchi. C/V: Regular rate and rhythm. S1 and S2 auscultated, no edema, peripheral pulses 2+ and intact throughout. Reproducible chest pain on palpation. ABD: Abd is soft, nontender, nondistended EXT: Normal range of motion, no obvious deformity SKIN: No rashes or lesions observed on exposed skin. NEURO: Alert and oriented 4. Course Vital Signs 11/05/21 11/05/21 11/05/21 15:08 18:12 18:20 Temperature 98 F 97.6 F Pulse Rate 79 73 Pulse Rate [ 72 [employer] ] Respiratory 18 16 Rate Blood Pressure 173/91 165/92 O2 Sat by Pulse 98 99 Oximetry 11/05/21 19:51 Temperature Pulse Rate 75 Pulse Rate [ [employer] Professional ] Respiratory Rate Blood Pressure 156/94 O2 Sat by Pulse Oximetry Medical Decision Making - Medical Decision Making Based on the patient's presentation and physical exam, I'm concerned for cardi opulmonary etiology for her current symptoms. Vital signs are within normal limits. Work up was mostly completed in triage, I will add on a d-dimer to complete the evaluation. She was in agreement this plan. EKG was obtained and showed no signs of acute ischemia. Chest x-ray reveals no acute cardio primary process. Laboratory studies remarkable for d-dimer within normal limits. Troponin is undetectable. Remainder the labs are unremarkable. Patient received Toradol and aspirin for pain. Symptoms are resolved at this time. I did discuss with her the results. I believe it is likely: Nature as it is reproducible on palpation. Heart score is low at 3. I do believe it is safe for her to follow up outpatient with her PCP. She was in agreement this plan. Strict return precautions were discussed. I instructed the patient to follow up with their PCP in the next 1-3 days. I explained that the patient should return to the emergency department if they experience any worsening symptoms. Strict return precautions were discussed with the patient. The patient expressed understanding of these instructions. I answered all questions that the patient had. The patient was discharged home in good condition with their prescriptions and follow up information. - Lab Data Result diagrams: 11/05/21 15:20 11/05/21 15:20 Lab Results 11/05/21 11/05/21 11/05/21 Range/Units 15:20 15:20 15:20 WBC 4.8 (3.8-10.6) k/uL RBC 4.62 (3.80-5.40) m/uL Hgb 15.2 (11.4-16.0) gm/dL Hct 44.2 (34.0-46.0) % MCV 95.6 (80.0-100.0) fL MCH 32.9 (25.0-35.0) pg MCHC 34.4 (31.0-37.0) g/dL RDW 12.3 (11.5-15.5) % Plt Count 256 (150-450) k/uL MPV 9.2 Neutrophils % 57 % Lymphocytes % 33 % Monocytes % 5 % Eosinophils % 2 % Basophils % 1 % Neutrophils # 2.8 (1.3-7.7) k/uL Lymphocytes # 1.6 (1.0-4.8) k/uL Monocytes # 0.2 (0-1.0) k/uL Eosinophils # 0.1 (0-0.7) k/uL Basophils # 0.0 (0-0.2) k/uL PT 10.5 (9.0-12.0) sec INR 1.0 (<1.2) APTT 22.7 (22.0-30.0) sec D-Dimer (<0.60) mg/L FEU Sodium 136 L (137-145) mmol/L Potassium 4.1 (3.5-5.1) mmol/L Chloride 100 (98-107) mmol/L Carbon Dioxide 29 (22-30) mmol/L Anion Gap 7 mmol/L BUN 12 (7-17) mg/dL Creatinine 0.58 (0.52-1.04) mg/dL Est GFR (CKD-EPI)AfAm >90 (>60 ml/min/1.73 sqM) Est GFR (CKD-EPI)NonAf >90 (>60 ml/min/1.73 sqM) Glucose 162 H (74-99) mg/dL Calcium 9.7 (8.4-10.2) mg/dL Total Bilirubin 0.4 (0.2-1.3) mg/dL AST 20 (14-36) U/L ALT 21 (4-34) U/L Alkaline Phosphatase 57 (38-126) U/L Troponin I (0.000-0.034) ng/mL Total Protein 7.3 (6.3-8.2) g/dL Albumin 4.5 (3.5-5.0) g/dL 11/05/21 11/05/21 Range/Units 15:20 18:34 WBC (3.8-10.6) k/uL RBC (3.80-5.40) m/uL Hgb (11.4-16.0) gm/dL Hct (34.0-46.0) % MCV (80.0-100.0) fL MCH (25.0-35.0) pg MCHC (31.0-37.0) g/dL RDW (11.5-15.5) % Plt Count (150-450) k/uL MPV Neutrophils % % Lymphocytes % % Monocytes % % Eosinophils % % Basophils % % Neutrophils # (1.3-7.7) k/uL Lymphocytes # (1.0-4.8) k/uL Monocytes # (0-1.0) k/uL Eosinophils # (0-0.7) k/uL Basophils # (0-0.2) k/uL PT (9.0-12.0) sec INR (<1.2) APTT (22.0-30.0) sec D-Dimer 0.33 (<0.60) mg/L FEU Sodium (137-145) mmol/L Potassium (3.5-5.1) mmol/L Chloride (98-107) mmol/L Carbon Dioxide (22-30) mmol/L Anion Gap mmol/L BUN (7-17) mg/dL Creatinine (0.52-1.04) mg/dL Est GFR (CKD-EPI)AfAm (>60 ml/min/1.73 sqM) Est GFR (CKD-EPI)NonAf (>60 ml/min/1.73 sqM) Glucose (74-99) mg/dL Calcium (8.4-10.2) mg/dL Total Bilirubin (0.2-1.3) mg/dL AST (14-36) U/L ALT (4-34) U/L Alkaline Phosphatase (38-126) U/L Troponin I <0.012 (0.000-0.034) ng/mL Total Protein (6.3-8.2) g/dL Albumin (3.5-5.0) g/dL - EKG Data -: EKG Interpreted by Me EKG Comments: 12-lead Electrocardiogram Interpretation Note EKG was reviewed and interpreted by myself. 12-lead ECG performed at 1512 is interpreted by me as revealing normal sinus rhythm at a rate of 74 beats per minute. Wann is normal. [place] interval is 167 ms, QRS duration 69 ms, QTc is 390 ms.. There were no ST or T wave abnormalities to suggest myocardial ischemia or injury. R wave progression across the precordium was satisfactory. By my interpretation this EKG is non-diagnostic for acute ischemia. Disposition Clinical Impression: Atypical chest pain, Chronic back pain, Chest wall pain Disposition: HOME SELF-CARE Condition: Good Instructions (If sedation given, give patient instructions): Chest Pain (ED), Costochondritis (ED) Prescriptions: Ibuprofen 800 mg PO Q8H PRN 7 Days #21 tab PRN Reason: Pain Is patient prescribed a controlled substance at d/c from ED?: No Referrals: Kami Glasgow DO [Primary Care Provider] - 1-2 days Time of Disposition: 19:15
[2021-11-05 19:53] VITALS: BP 156/94; PULSE 75
== END 2021-11-05 19:52 | disposition home or self-care (01) ==
LOC: EC 14:52
DX: R07.89 Other chest pain (principal); G89.29 Other chronic pain; M54.9 Dorsalgia, unspecified; R06.02 Shortness of breath; I10 Essential (primary) hypertension; E11.9 Type 2 diabetes mellitus without complications; K21.9 Gastro-esophageal reflux disease without esophagitis; E78.5 Hyperlipidemia, unspecified; F17.200 Nicotine dependence, unspecified, uncomplicated; Z79.84 Long term (current) use of oral hypoglycemic drugs; Z79.899 Other long term (current) drug therapy
CPT/HCPCS: 36415; 93005; 85379; 80053; 84484; 85025; 85610; 85730; 71046; 99285; 96372; J1885

== ENCOUNTER → 2022-09-19 | Outpatient (CLI) | payer OTHER ==
--- NOTE | 2022-09-22 08:36 | MM ---
Reason for Exam: Screening (asymptomatic). Last mammogram was performed 2 year(s) and 6 month(s) ago. Patient History: Menarche at age 12. First Full-Term at age 16. Postmenopausal. Currently using Estrogen, starting at age 51. 2010, Bilateral Reduction. Maternal grandmother had ovarian cancer. Paternal aunt had breast cancer. Risk Values: Hodan 5 year model risk: 0.9%. NCI Lifetime model risk: 5.9%. Prior Study Comparison: 02/18/2017 Bilateral Screening Mammogram, [facility]. 06/17/2018 Bilateral Screening Mammogram, [facility]. 03/23/2020 Bilateral Screening Mammogram, [facility]. Tissue Density: There are scattered fibroglandular densities. Findings: Analyzed By CAD. There is no suspicious group of microcalcifications or new suspicious mass in either breast. Overall Assessment: Benign, BI-RAD 2 Management: Screening Mammogram of both breasts in 1 year. . Patient should continue monthly self-breast exams. A clinical breast exam by your physician is recommended on an annual basis. This exam should not preclude additional follow-up of suspicious palpable abnormalities. Note on Hodan scores and lifetime risk: 1. A Hodan score greater than 3% is considered moderate risk. If this is the case, consider specialist referral to assess eligibility for a risk reducing agent. 2. If overall lifetime risk for the development of breast cancer is 20% or higher, the patient may qualify for future screening with alternating mammogram and breast MRI. Electronically signed and approved by: Rigo Quinonez M.D. Radiologis
== END | disposition home or self-care (01) ==
LOC: RADMAMWWP 08:59
PROVIDERS: ATTEND Family Medicine
DX: Z12.31 Encounter for screening mammogram for malignant neoplasm of breast (principal); Z78.0 Asymptomatic menopausal state; Z80.3 Family history of malignant neoplasm of breast; Z80.41 Family history of malignant neoplasm of ovary
CPT/HCPCS: 77067

== ENCOUNTER → 2023-03-13 | Outpatient (CLI) | payer OTHER ==
--- NOTE | 2023-03-13 11:53 | XR ---
Complete thoracic spine. DATE: 03/13/2023. COMPARISON: None available. HISTORY: Mid back pain radiating to right side for one month. FINDINGS: The vertebral bodies are well aligned without evidence of fracture, subluxation or dislocation. There is mild scattered endplate changes throughout the thoracic spine and anterior and lateral osteo phytes compatible degenerative changes. The pedicles are unremarkable. IMPRESSION: Mild degenerative changes with no acute osseous abnormality.
== END | disposition home or self-care (01) ==
LOC: RADXRMAIN 11:22
PROVIDERS: ATTEND Family Medicine
DX: M47.24 Other spondylosis with radiculopathy, thoracic region (principal)
CPT/HCPCS: 72072

== ENCOUNTER 2023-07-10 05:03 | Emergency (ER) | payer OTHER ==
[2023-07-10 05:21] VITALS: RESP 18
[2023-07-10] MEDS: ASPIRIN 81 MG PO STA (05:48)
[2023-07-10 05:52] LABS: Basophils % (A) 0 %; Eosinophils % (A) 1 %; HCT 44.4 % (34.0-46.0); HGB 14.6 gm/dL (11.4-16.0); Lymphocytes # (A) 0.6 k/uL (1.0-4.8); Lymphocytes % (A) 12 %; MCH 31.2 pg (25.0-35.0); MCV 94.8 fL (80.0-100.0); Mean Platelet Volume 9.2; Monocytes # (A) 0.1 k/uL (0-1.0); Monocytes % (A) 3 %; Neutrophils # (A) 4.2 k/uL (1.3-7.7); Neutrophils % (A) 84 %; Platelet Count 208 k/uL (150-450); RBC 4.68 m/uL (3.80-5.40); RDW 12.7 % (11.5-15.5)
[2023-07-10 06:03] LABS: Partial Thromboplastin Time 22.4 sec (22.0-30.0); Prothrombin Time 10.6 sec (10.0-12.5)
[2023-07-10 06:12] LABS: ALT 19 U/L (4-34); AST 16 U/L (14-36); African American GFR (CKD) >90 (>60 ml/min/1.73 sqM); Albumin 4.2 g/dL (3.5-5.0); Alkaline Phosphatase 67 U/L (38-126); Anion Gap 6 mmol/L; Blood Urea Nitrogen 14 mg/dL (7-17); Calcium 9.2 mg/dL (8.4-10.2); Carbon Dioxide 30 mmol/L (22-30); Chloride 101 mmol/L (98-107); Glucose 201 mg/dL (74-99); Magnesium 1.4 mg/dL (1.6-2.3); Non-African American GFR(CKD) >90 (>60 ml/min/1.73 sqM); Potassium 4.4 mmol/L (3.5-5.1); Sodium 137 mmol/L (137-145); Total Bilirubin 1.1 mg/dL (0.2-1.3); Total Protein 6.9 g/dL (6.3-8.2)
--- NOTE | 2023-07-10 06:24 | ED ---
Chest Pain HPI - General Chief Complaint: Chest Pain Stated Complaint: Chest Pain, Left Arm Numbness Time Seen by Provider: 07/10/23 06:00 Source: patient, RN notes reviewed Mode of arrival: ambulatory Limitations: no limitations - History of Present Illness Initial Comments: This is a 57-year-old female who presents to the emergency department for chest pain. States that yesterday she was having some intermittent pain in her back and left side of the chest, and she was woken up this morning by a painful jolt in her chest. States that this has been occurring intermittently, but when the pain does occur it seems to take her breath away. Pain is described as sharp. Reports some numbness down the left arm. Also has occasional shortness of breat h. Denies any personal cardiac history. Reports a cardiac history in her father and grandfather. She is not sure how old they were, but believes that it may have been around her age. MD Complaint: chest pain - Related Data Home Medications Medication Instructions Recorded Confirmed Escitalopram [Lexapro] 10 mg PO DAILY 07/15/17 11/05/21 lisinopriL [Prinivil] 10 mg PO DAILY 07/15/17 11/05/21 sitaGLIPtin [Januvia] 100 mg PO DAILY 07/15/17 11/05/21 Atorvastatin [Lipitor] 20 mg PO DAILY 01/28/18 11/05/21 Dulaglutide [Trulicity] 4.5 mg SQ TH 11/05/21 11/05/21 Omeprazole 20 mg PO DAILY 11/05/21 11/05/21 metFORMIN HCL [Glucophage] 1,000 mg PO DAILY 11/05/21 11/05/21 Previous Rx's Medication Instructions Recorded Ibuprofen 800 mg PO Q8H PRN 7 Days #21 tab 11/05/21 Allergies Allergy/AdvReac Type Severity Reaction Status Date / Time No Known Allergies Allergy Verified 11/05/21 19:20 Review of Systems ROS Statement: Those systems with pertinent positive or pertinent negative responses have been documented in the HPI. ROS Other: All systems not noted in ROS Statement are negative. Past Medical History Past Medical History: Diabetes Mellitus, GERD/Reflux, Hyperlipidemia, Hypertension, Thyroid Disorder Additional Past Medical History / Comment(s): Unsure of what was wrong with her thyroid, states half of it was removed. History of Any Multi-Drug Resistant Organisms: None Reported Past Surgical History: Bladder Surgery, Orthopedic Surgery, Tonsillectomy, Tubal Ligation, Uterine Ablation Additional Past Surgical History / Comment(s): Partial thyroidectomy, CYST REMOVED FROM BACK, RIGHT KNEE SURGERY. Past Anesthesia/Blood Transfusion Reactions: Postoperative Nausea & Vomiting (PONV) Past Psychological History: No Psychological Hx Reported Smoking Status: Current some day smoker, Never smoker Past Alcohol Use History: Rare Past Drug Use History: None Reported - Past Family History Mother Family Medical History: Diabetes Mellitus Father Additional Family Medical History / Comment(s): stents placed General Exam Limitations: no limitations General appearance: alert, in no apparent distress Head exam: Present: atraumatic, normocephalic, normal inspection Respiratory exam: Present: normal lung sounds bilaterally. Absent: respiratory distress, wheezes, rales, rhonchi, stridor, chest wall tenderness Cardiovascular Exam: Present: regular rate, normal rhythm, normal heart sounds. Absent: systolic murmur, diastolic murmur, rubs, gallop, clicks Neurological exam: Present: alert, oriented X3, CN II-XII intact Psychiatric exam: Present: normal affect, normal mood Skin exam: Present: warm, dry, intact, normal color. Absent: rash Course Vital Signs 07/10/23 07/10/23 07/10/23 05:11 06:00 07:00 Temperature Pulse Rate 104 H 100 101 H Respiratory 18 22 18 Rate Blood Pressure 136/84 144/88 146/92 O2 Sat by Pulse 98 96 Oximetry 07/10/23 07/10/23 07:32 09:27 Temperature 98.8 F Pulse Rate 106 H 112 H Respiratory 18 18 Rate Blood Pressure 136/74 129/82 O2 Sat by Pulse 98 98 Oximetry Chest Pain MDM - MDM This is a 57 year old female who presents to the emergency department for chest pain. Was pt. sent in by a medical professional or institution? @ -No Did you speak to anyone other than the patient for history? @ -No Did you review nursing and triage notes? @ -Yes, and I agree, it is accurate with regards to the patient's symptoms. Were old charts reviewed? @ -No Differential Diagnosis? @ -Differential Chest Pain: Stable Angina, Unstable Angina, STEMI, NSTEMI Aortic Dissection, Pneumothorax, Musculoskeletal, Esophageal Spasm GERD, Cholecystitis, Pancreatitis, Zoster, this is not meant to be an all-inclusive list. EKG interpreted by me (3pts min.)? @ -EKG interpreted by me demonstrating the following: Sinus rhythm. Ventricular rate 96 bpm, KS interval 164 ms, QRS duration 71 ms, QTc 384 ms. X-rays interpreted by me (1pt min.)? @ -Chest x-ray obtained, my interpretation identifies no localized consolidations or infiltrates. CT interpreted by me (1pt min.)? @ -CTA of the chest obtained. My interpretation identifies no evidence of a pulmonary embolus. U/S interpreted by me (1pt. min.)? @ -Not obtained What testing was considered but not performed? (CT, X-rays, U/S, labs)? Why? @ -None What meds were considered but not given? Why? @ -None Did you discuss the management of the patient with other professionals? @ -No Did you reconcile home meds? @ -No Was smoking cessation discussed for >3mins.? @ -I discussed smoking cessation for greater than 3 minutes. The risk of smoking were discussed with the patient including but not limited to risks of cancer, stroke, coronary artery disease and COPD. Also discussed with patient were multiple methods of quitting smoking. Lastly we discussed the financial cost of smoking. Was critical care preformed (if so, how long)? @ -No Were there social determinants of health that impacted care today? How? (Homelessness, low income, unemployed, alcoholism, drug addiction, transportation, low edu. Level, literacy, decrease access to med. care, detention, rehab)? @ -No Was there de-escalation of care discussed even if they declined? (Discuss DNR or withdrawal of care, Hospice)? @ -No What co-morbidities impacted this encounter? (DM, HTN, Smoking, COPD, CAD, Cancer, CVA, Hep., AIDS, mental health diagnosis, sleep apnea, morbid obesity)? @ -Smoking, DM, HLD, HTN Was patient admitted / discharged? @ -Discharged. Patient given 324mg of Aspirin on arrival. Lab work demonstrates hypomagnesemia with a magnesium of 1.4. 400mg of magnesium oxide administered. Troponin negative. D-dimer elevated at 1.00 and a CTA of the chest was obtained. This identified no evidence of a pulmonary embolus or other acute process. Chest x-ray obtained prior to this also revealed no acute findings. Discussed with the patient the option of admission for chest pain observation versus repeat troponin. Advised that a negative repeat troponin does not rule out the possibility of cardiac issues contributing to her pain. Patient expresses understanding and requests to proceed with a second troponin as opposed to admission for cardiac observation. Second troponin ordered and found to be negative. Her pain had been entirely resolved for a couple of hours and she requested discharge home. She was given strict return parameters and advised to have close follow-up with her primary care provider. Undiagnosed new problem with uncertain prognosis? @ -None Drug Therapy requiring intensive monitoring for toxicity (Heparin, Nitro, Insulin, Cardizem)? @ -None Were any procedures done? @ -None Diagnosis/symptom? @ -Chest pain Acute, or Chronic, or Acute on Chronic? @ -Acute Uncomplicated (without systemic symptoms) or Complicated (systemic symptoms)? @ -Uncomplicated Side effects of treatment? @ -None Exacerbation, Progression, or Severe Exacerbation] @ -Not applicable Poses a threat to life or bodily function? @ -This will depend on the cause of her pain. Return precautions reviewed in depth, the patient is instructed to return to the emergency department with any new, worsening, or concerning symptoms. Patient verbalized understanding. This case was discussed in detail with the attending ED physician, Dr. Raya. Presentation, findings, and treatment plan discussed in detail as well. Disposition Clinical Impression: Nicotine dependence, Hypomagnesemia, Chest pain Disposition: HOME SELF-CARE Instructions (If sedation given, give patient instructions): Chest Pain (ED) Additional Instructions: Return to the emergency department with any new, worsening, or concerning symptoms. Follow up with your primary care provider in 1-2 days. Is patient prescribed a controlled substance at d/c from ED?: No Referrals: Kami Glasgow DO [Primary Care Provider] - 1-2 days Time of Disposition: 09:09
[2023-07-10] MEDS: MAGNESIUM OXIDE 400 MG TAB PO STA (07:03)
[2023-07-10 07:49] VITALS: TEMP 98.8
--- NOTE | 2023-07-10 08:32 | XR ---
EXAMINATION TYPE: XR chest 2V DATE OF EXAM: 07/10/2023 COMPARISON: 11/05/2021 INDICATION: Chest pain left arm numbness TECHNIQUE: Frontal and lateral views of the chest are obtained. FINDINGS: The heart size is normal. The pulmonary vasculature is normal. The lungs are clear. IMPRESSION: 1. No acute pulmonary process.
--- NOTE | 2023-07-10 08:59 | CT ---
EXAMINATION TYPE: CT chest angio for PE CT DLP: 335.3 mGycm, Automated exposure control for dose reduction was used. DATE OF EXAM: 07/10/2023 7:50 AM COMPARISON: Chest radiograph from same day. Multiple CTs of the chest with most recent on . CLINICAL INDICATION:Female, 57 years old with history of Chest pain, elevated d-dimer; PE TECHNIQUE/CONTRAST: CTA scan of the thorax is performed with IV Contrast, patient injected with 60 mL of Isovue 370, MIP images are created and reviewed these are created on a separate workstation.. FINDINGS: Pulmonary Artery: There is no evidence for a filling defect within the pulmonary vasculature to sugge st acute pulmonary embolism. The pulmonary artery is of normal size. Lungs/Pleura: No evidence of focal consolidation, pleural effusion or pneumothorax. Airway: Large airways are patent. Heart: Heart is within normal limits for size. Vasculature: No evidence of aortic aneurysm. Mediastinum: No gross evidence of adenopathy. Musculoskeletal: No acute osseous abnormalities Soft Tissues: Unremarkable. Lower neck: No significant findings. Upper Abdomen: No significant findings. IMPRESSION: 1. No evidence of pulmonary embolism.
[2023-07-10 09:43] VITALS: BP 129/82; PULSE 112
== END 2023-07-10 09:29 | disposition home or self-care (01) ==
LOC: EC 05:03
DX: E83.42 Hypomagnesemia (principal); R07.89 Other chest pain; F17.200 Nicotine dependence, unspecified, uncomplicated
CPT/HCPCS: 36415; 93005; 85379; 80053; 83735; 84484; 85025; 85610; 85730; 71046; 71275; 99285; 99406; Q9967

== ENCOUNTER 2023-08-21 09:25 | Emergency (ER) | payer OTHER ==
--- NOTE | 2023-08-21 09:52 | ED ---
General Adult HPI - General Chief complaint: Eye Problems Stated complaint: Eye issue Time Seen by Provider: 08/21/23 09:30 Source: patient, RN notes reviewed, old records reviewed Mode of arrival: ambulatory Limitations: no limitations - History of Present Illness Initial comments: This is a 57-year-old female who presents to the emergency department c omplaining that she woke up this morning both her eyes were red. Patient states she waited a little while longer she started noticing the conjunctiva becoming swollen and her left eye her lower eyelids become swollen. Patient states she does not think she got into anything that she knows of and states yesterday she was completely fine. Patient Nuys any fever or chills. Patient is any rashes or hives anywhere else. - Related Data Home Medications Medication Instructions Recorded Confirmed Escitalopram [Lexapro] 10 mg PO DAILY 07/15/17 11/05/21 lisinopriL [Prinivil] 10 mg PO DAILY 07/15/17 11/05/21 sitaGLIPtin [Januvia] 100 mg PO DAILY 07/15/17 11/05/21 Atorvastatin [Lipitor] 20 mg PO DAILY 01/28/18 11/05/21 Dulaglutide [Trulicity] 4.5 mg SQ TH 11/05/21 11/05/21 Omeprazole 20 mg PO DAILY 11/05/21 11/05/21 metFORMIN HCL [Glucophage] 1,000 mg PO DAILY 11/05/21 11/05/21 Previous Rx's Medication Instructions Recorded Ibuprofen 800 mg PO Q8H PRN 7 Days #21 tab 11/05/21 Naphazoline-Phenira 0.025-0.3% 2 drops BOTH EYES QID #15 ml 08/21/23 [Visine-A Ophth Soln] Tobramycin 0.3% Ophth Soln [Tobrex 1 drop BOTH EYES Q4H #5 ml 08/21/23 0.3% Ophth Soln] Allergies Allergy/AdvReac Type Severity Reaction Status Date / Time No Known Allergies Allergy Verified 08/21/23 09:30 Review of Systems ROS Statement: Those systems with pertinent positive or pertinent negative responses have been documented in the HPI. ROS Other: All systems not noted in ROS Statement are negative. Past Medical History Past Medical History: Diabetes Mellitus, GERD/Reflux, Hyperlipidemia, Hypertension, Thyroid Disorder Additional Past Medical History / Comment(s): Unsure of what was wrong with her thyroid, states half of it was removed. History of Any Multi-Drug Resistant Organisms: None Reported Past Surgical History: Bladder Surgery, Orthopedic Surgery, Tonsillectomy, Tubal Ligation, Uterine Ablation Additional Past Surgical History / Comment(s): Partial thyroidectomy, CYST REMOVED FROM BACK, RIGHT KNEE SURGERY. Past Anesthesia/Blood Transfusion Reactions: Postoperative Nausea & Vomiting (PONV) Past Psychological History: No Psychological Hx Reported Smoking Status: Former smoker Past Alcohol Use History: Occasional Past Drug Use History: None Reported - Past Family History Mother Family Medical History: Diabetes Mellitus Father Additional Family Medical History / Comment(s): stents placed General Exam - General Exam Comments Initial Comments: GENERAL Patient is well-developed and well-nourished. Patient is in mild distress. EYES Patient's pupils are equal and round. Extraocular motion is intact. Patient is chemosis bilaterally more so on the left than the right. Patient has conjunctivitis. Patient has a swollen lower left eyelid. SKIN Unremarkable NEURO The patient is alert and oriented -3 PYSCH Patient has normal interpersonal interactions. MUSCULOSKELETAL Patient has full range of motion of all 4 extremities Limitations: no limitations Course Vital Signs 08/21/23 09:28 Temperature 98.1 F Pulse Rate 81 Respiratory 16 Rate Blood Pressure 168/85 O2 Sat by Pulse 99 Oximetry Medical Decision Making - Medical Decision Making Was pt. sent in by a medical professional or institution (Dr. PA, [facility] PRESIDENT, urgent care, hospital, or fci...) When possible be specific @ -No Did you speak to anyone other than the patient for history (EMS, parent, family, police, friend...)? What history was obtained from this source @ -No Did you review nursing and triage notes (agree or disagree)? Why? @ -I reviewed and agree with nursing and triage notes Were old charts reviewed (outside hosp., previous admission, EMS record, old EKG, old radiological studies, urgent care reports/EKG's, fci records)? Report findings @ -No old charts were reviewed Differential Diagnosis (chest pain, altered mental status, abdominal pain women, abdominal pain men, vaginal bleeding, weakness, fever, dyspnea, syncope, headache, dizziness, GI bleed, back pain, seizure, CVA, palpatations, mental health, musculoskeletal)? @ -Viral conjunctivitis, bacterial conjunctivitis, foreign body, allergic conjunctivitis, this is not an all-inclusive list EKG interpreted by me (3pts min.). @ -As above X-rays interpreted by me (1pt min.). @ -None done CT interpreted by me (1pt min.). @ -None done U/S interpreted by me (1pt. min.). @ -None done What testing was considered but not performed or refused? (CT, X-rays, U/S, l abs)? Why? @ -None What meds were considered but not given or refused? Why? @ -None Did you discuss the management of the patient with other professionals (professionals i.e. DrValeriy, PA, [facility] PRESIDENT, lab, RT, psych nurse, protective services social worker, corporate logistics manager, teacher, appeals officer, adult protective caseworker)? Give summary @ -No Was smoking cessation discussed for >3mins.? @ -No Was critical care preformed (if so, how long)? @ -No Were there social determinants of health that impacted care today? How? (Homelessness, low income, unemployed, alcoholism, drug addiction, transportation, low edu. Level, literacy, decrease access to med. care, [place] [facility], rehab)? @ -No Was there de-escalation of care discussed even if they declined (Discuss DNR or withdrawal of care, Hospice)? DNR status @ -No What co-morbidities impacted this encounter? (DM, HTN, Smoking, COPD, CAD, Cancer, CVA, ARF, Chemo, Hep., AIDS, mental health diagnosis, sleep apnea, morbid obesity)? @ -None Was patient admitted / discharged? Hospital course, mention meds given and route, prescriptions, significant lab abnormalities, going to OR and other pertinent info. @ -Patient had what appears to be an allergic conjunctivitis and will be prescribed Naphcon-A and an antibacterial show she does not get a superinfection Undiagnosed new problem with uncertain prognosis? @ -No Drug Therapy requiring intensive monitoring for toxicity (Heparin, Nitro, Insulin, Cardizem)? @ -No Were any procedures done? @ -No Diagnosis/symptom? @ -Allergic conjunctivitis Acute, or Chronic, or Acute on Chronic? @ -Acute Uncomplicated (without systemic symptoms) or Complicated (systemic symptoms)? @ -Uncomplicated Side effects of treatment? @ -No Exacerbation, Progression, or Severe Exacerbation? @ -No Poses a threat to life or bodily function? How? (Chest pain, [place], [place], pneumonia, PE, COPD, DKA, ARF, appy, cholecystitis, CVA, Diverticulitis, Homicidal, Suicidal, threat to staff... and all critical care pts) @ -No Disposition Clinical Impression: Allergic conjunctivitis Disposition: HOME SELF-CARE Condition: Good Instructions (If sedation given, give patient instructions): Conjunctivitis (ED) Additional Instructions: Patient should use cool compresses. Patient should use Naphcon-A as prescribed. Patient should use antibiotic drops as prescribed. Prescriptions: Tobramycin 0.3% Ophth Soln [Tobrex 0.3% Ophth Soln] 1 drop BOTH EYES Q4H #5 ml Naphazoline-Phenira 0.025-0.3% [Visine-A Ophth Soln] 2 drops BOTH EYES QID #15 ml Is patient prescribed a controlled substance at d/c from ED?: No Referrals: Kami Glasgow DO [Primary Care Provider] - 1-2 days
[2023-08-21 09:57] VITALS: RESP 16; TEMP 98.1
[2023-08-21 10:44] VITALS: BP 110/78; PULSE 88
== END 2023-08-21 10:18 | disposition home or self-care (01) ==
LOC: EC 09:25
DX: H10.13 Acute atopic conjunctivitis, bilateral (principal); Z87.891 Personal history of nicotine dependence
CPT/HCPCS: 99283

== ENCOUNTER → 2023-09-25 | Outpatient (CLI) | payer MEDICAID, OTHER ==
--- NOTE | 2023-09-28 15:46 | MM ---
Reason for Exam: Screening (asymptomatic). Last screening mammogram was performed 12 month(s) ago. Patient History: Menarche at age 12. First Full-Term at age 16. Postmenopausal. Estrogen, starting at age 51. 2010, Bilateral Reduction. Maternal grandmother had ovarian cancer. Paternal aunt had breast cancer. Risk Values: Hodan 5 year model risk: 0.9%. NCI Lifetime model risk: 5.7%. Prior Study Comparison: 06/17/2018 Bilateral Screening Mammogram, [facility]. 03/23/2020 Bilateral Screening Mammogram, [facility]. 09/19/2022 Bilateral MG screening mammo w CAD, [facility]. Tissue Density: There are scattered areas of fibroglandular density. Findings: Analyzed By CAD. The pattern is symmetrical. Benign coarse calcifications are present bilaterally. No significant interval changes are evident. No suspicious groups of microcalcifications, spiculated or lobular masses, architectural distortion or other secondary signs of malignancy are mammographically apparent. Overall Assessment: Benign, BI-RAD 2 Management: Screening Mammogram of both breasts in 1 year. A negative mammogram report should not preclude additional follow up of suspicious palpable abnormalities. Patient should continue monthly self breast exam. A clinical breast exam by your physician is recommended on an annual basis and results should be correlated with mammographic findings. Note on Hodan scores and lifetime risk: 1. A Hodan score greater than 3% is considered moderate risk. If this is the case, consider specialist referral to assess eligibility for a risk reducing agent. 2. If overall lifetime risk for the development of breast cancer is 20% or higher, the patient may qualify for future screening with alternating mammogram and breast MRI. Electronically signed and approved by: Abhijit Hayes D.O. Radiologis
== END | disposition home or self-care (01) ==
LOC: RADMAMWWP 13:59
PROVIDERS: ATTEND Family Medicine
DX: Z12.31 Encounter for screening mammogram for malignant neoplasm of breast (principal); Z78.0 Asymptomatic menopausal state; Z80.3 Family history of malignant neoplasm of breast
CPT/HCPCS: 77067

== ENCOUNTER 2024-01-09 20:10 | Observation (INO) | payer MEDICAID, OTHER ==
--- NOTE | 2024-01-09 20:31 | ED ---
General Adult HPI - General Chief complaint: Chest Pain Stated complaint: chest pain Time Seen by Provider: 01/09/24 20:16 Source: patient, RN notes reviewed, old records reviewed Mode of arrival: ambulatory Limitations: no limitations - History of Present Illness Initial comments: 58-year-old female presenting for evaluation of substernal chest pain. Patient describes it as a squeezing pain. pain has been intermittent over the past 24 hours. Associated nausea. Mild dyspnea. Patient states she does have pain between her shoulder blades. And states that the pain is made worse with deep inspiration. No cough. No lower extremity pain or swelling. No history of CAD. Patient does have history of diabetes and is a current smoker. - Related Data Home Medications Medication Instructions Recorded Confirmed Escitalopram [Lexapro] 10 mg PO DAILY 07/15/17 11/05/21 lisinopriL [Prinivil] 10 mg PO DAILY 07/15/17 11/05/21 sitaGLIPtin [Januvia] 100 mg PO DAILY 07/15/17 11/05/21 Atorvastatin [Lipitor] 20 mg PO DAILY 01/28/18 11/05/21 Dulaglutide [Trulicity] 4.5 mg SQ TH 11/05/21 11/05/21 Omeprazole 20 mg PO DAILY 11/05/21 11/05/21 metFORMIN HCL [Glucophage] 1,000 mg PO DAILY 11/05/21 11/05/21 Previous Rx's Medication Instructions Recorded Ibuprofen 800 mg PO Q8H PRN 7 Days #21 tab 11/05/21 Naphazoline-Phenira 0.025-0.3% 2 drops BOTH EYES QID #15 ml 08/21/23 [Visine-A Ophth Soln] Tobramycin 0.3% Ophth Soln [Tobrex 1 drop BOTH EYES Q4H #5 ml 08/21/23 0.3% Ophth Soln] Allergies Allergy/AdvReac Type Severity Reaction Status Date / Time No Known Allergies Allergy Verified 01/09/24 20:16 Review of Systems ROS Statement: Those systems with pertinent positive or pertinent negative responses have been documented in the HPI. ROS Other: All systems not noted in ROS Statement are negative. Past Medical History Past Medical History: Diabetes Mellitus, GERD/Reflux, Hyperlipidemia, Hypertension, Thyroid Disorder Additional Past Medical History / Comment(s): Unsure of what was wrong with her thyroid, states half of it was removed. History of Any Multi-Drug Resistant Organisms: None Reported Past Surgical History: Bladder Surgery, Orthopedic Surgery, Tonsillectomy, Tubal Ligation, Uterine Ablation Additional Past Surgical History / Comment(s): Partial thyroidectomy, CYST REMOVED FROM BACK, RIGHT KNEE SURGERY. Past Anesthesia/Blood Transfusion Reactions: Postoperative Nausea & Vomiting (PONV) Past Psychological History: No Psychological Hx Reported Smoking Status: Former smoker Past Alcohol Use History: Occasional Past Drug Use History: None Reported - Past Family History Mother Family Medical History: Diabetes Mellitus Father Additional Family Medical History / Comment(s): stents placed General Exam Limitations: no limitations General appearance: alert Head exam: Present: atraumatic, normocephalic Eye exam: Present: normal appearance, PERRL ENT exam: Present: normal exam Respiratory exam: Present: normal lung sounds bilaterally. Absent: respiratory distress, wheezes Cardiovascular Exam: Present: regular rate, normal rhythm GI/Abdominal exam: Present: soft. Absent: distended, tenderness, guarding, rebound Extremities exam: Present: normal inspection, normal capillary refill. Absent: calf tenderness Neurological exam: Present: alert, oriented X3, CN II-XII intact. Absent: motor sensory deficit Psychiatric exam: Present: normal affect, normal mood Skin exam: Present: warm, dry, intact. Absent: cyanosis, diaphoretic Course Vital Signs 01/09/24 20:11 Temperature 97.9 F Pulse Rate 85 Respiratory 17 Rate Blood Pressure 148/80 O2 Sat by Pulse 97 Oximetry Medical Decision Making - Medical Decision Making Was pt. sent in by a medical professional or institution (, PA, LAUNDRY WASHER, urgent care, hospital, or alf...) When possible be specific @ -No Did you speak to anyone other than the patient for history (EMS, parent, family, police, friend...)? What history was obtained from this source @ -No Did you review nursing and triage notes (agree or disagree)? Why? @ -I reviewed and agree with nursing and triage notes Were old charts reviewed (outside hosp., previous admission, EMS record, old EKG, old radiological studies, urgent care reports/EKG's, alf records)? Report findings @ -No old charts were reviewed Differential Chest Pain: Stable Angina, Unstable Angina, STEMI, NSTEMI Aortic Dissection, Pneumothorax, Musculoskeletal, Esophageal Spasm GERD, Cholecystitis, Pancreatitis, Zoster, this is not meant to be an all-inclusive list. EKG interpreted by me (3pts min.). @Sinus rhythm rate of 82, WI interval 162, QRS duration 77, QTc [address] segment elevation. X-rays interpreted by me (1pt min.). @ -[Chest x-ray negative for acute cardiopulmonary findings CT interpreted by me (1pt min.). @ -None done U/S interpreted by me (1pt. min.). @ -None done What testing was considered but not performed or refused? (CT, X-rays, U/S, labs)? Why? @ -None What meds were considered but not given or refused? Why? @ -None Did you discuss the management of the patient with other professionals (professionals i.e. , PA, LAUNDRY WASHER, lab, RT, psych nurse, social services coordinator, mechanic welder, teacher, medical officer, case repairer)? Give summary @ -[Dr. Constantino Was smoking cessation discussed for >3mins.? @ -No Was critical care preformed (if so, how long)? @ -No Were there social determinants of health that impacted care today? How? (Homelessness, low income, unemployed, alcoholism, drug addiction, transportation, low edu. Level, literacy, decrease access to med. care, fci, rehab)? @ -No Was there de-escalation of care discussed even if they declined (Discuss DNR or withdrawal of care, Hospice)? DNR status @ -No What co-morbidities impacted this encounter? (DM, HTN, Smoking, COPD, CAD, Cancer, CVA, ARF, Chemo, Hep., AIDS, mental health diagnosis, sleep apnea, morbid obesity)? @ -[Diabetes, current smoker Was patient admitted / discharged? Hospital course, mention meds given and route, prescriptions, significant lab abnormalities, going to OR and other pertinent info. @ -58-year-old female presenting with squeezing substernal chest pain. Associated nausea. EKG is sinus without ST segment elevation. Chest x-ray is clear. Normal CBC, CMP shows elevated blood glucose, magnesium 1.5. Initial troponin is negative. Given the risk factors the patient will be admitted for serial cardiac enzymes, telemetry, cardiology consultation. Case discussed with Dr. Constantino will admit. Undiagnosed new problem with uncertain prognosis? @ -[No Drug Therapy requiring intensive monitoring for toxicity (Heparin, Nitro, Insulin, Cardizem)? @ -No Were any procedures done? @ -No Diagnosis/symptom? @ -[chest pain Rule out Acute, or Chronic, or Acute on Chronic? @ -Acute Uncomplicated (without systemic symptoms) or Complicated (systemic symptoms)? @ -[default Side effects of treatment? @ -No Exacerbation, Progression, or Severe Exacerbation? @ -No Poses a threat to life or bodily function? How? (Chest pain, USA, ME, pneumonia, PE, COPD, DKA, ARF, appy, cholecystitis, CVA, Diverticulitis, Homicidal, Suicidal, threat to staff... and all critical care pts) @ -Yes, ACS - Lab Data Result diagrams: 01/09/24 20:31 01/09/24 20:31 Lab Results 01/09/24 01/09/24 01/09/24 Range/Units 20:31 20:31 20:31 WBC 6.4 (3.8-10.6) k/uL RBC 4.61 (3.80-5.40) m/uL Hgb 14.5 (11.4-16.0) gm/dL Hct 44.1 (34.0-46.0) % MCV 95.6 (80.0-100.0) fL MCH 31.5 (25.0-35.0) pg MCHC 32.9 (31.0-37.0) g/dL RDW 12.2 (11.5-15.5) % Plt Count 228 (150-450) k/uL MPV 9.0 Neutrophils % 58 % Lymphocytes % 32 % Monocytes % 5 % Eosinophils % 3 % Basophils % 1 % Neutrophils # 3.7 (1.3-7.7) k/uL Lymphocytes # 2.0 (1.0-4.8) k/uL Monocytes # 0.3 (0-1.0) k/uL Eosinophils # 0.2 (0-0.7) k/uL Basophils # 0.0 (0-0.2) k/uL PT 10.3 (10.0-12.5) sec INR 0.9 (<1.2) APTT 22.5 (22.0-30.0) sec D-Dimer 0.26 (<0.60) mg/L FEU Sodium 134 L (137-145) mmol/L Potassium 4.1 (3.5-5.1) mmol/L Chloride 105 (98-107) mmol/L Carbon Dioxide 24 (22-30) mmol/L Anion Gap 5 mmol/L BUN 13 (7-17) mg/dL Creatinine 0.57 (0.52-1.04) mg/dL Est GFR (CKD-EPI)AfAm >90 (>60 ml/min/1.73 sqM) Est GFR (CKD-EPI)NonAf >90 (>60 ml/min/1.73 sqM) Glucose 295 H (74-99) mg/dL Calcium 9.4 (8.4-10.2) mg/dL Magnesium 1.5 L (1.6-2.3) mg/dL Total Bilirubin 0.6 (0.2-1.3) mg/dL AST 21 (14-36) U/L ALT 23 (4-34) U/L Alkaline Phosphatase 50 (38-126) U/L Troponin I (0.000-0.034) ng/mL Total Protein 6.8 (6.3-8.2) g/dL Albumin 4.4 (3.5-5.0) g/dL Lipase 211 (23-300) U/L 01/09/24 Range/Units 20:31 WBC (3.8-10.6) k/uL RBC (3.80-5.40) m/uL Hgb (11.4-16.0) gm/dL Hct (34.0-46.0) % MCV (80.0-100.0) fL MCH (25.0-35.0) pg MCHC (31.0-37.0) g/dL RDW (11.5-15.5) % Plt Count (150-450) k/uL MPV Neutrophils % % Lymphocytes % % Monocytes % % Eosinophils % % Basophils % % Neutrophils # (1.3-7.7) k/uL Lymphocytes # (1.0-4.8) k/uL Monocytes # (0-1.0) k/uL Eosinophils # (0-0.7) k/uL Basophils # (0-0.2) k/uL PT (10.0-12.5) sec INR (<1.2) APTT (22.0-30.0) sec D-Dimer (<0.60) mg/L FEU Sodium (137-145) mmol/L Potassium (3.5-5.1) mmol/L Chloride (98-107) mmol/L Carbon Dioxide (22-30) mmol/L Anion Gap mmol/L BUN (7-17) mg/dL Creatinine (0.52-1.04) mg/dL Est GFR (CKD-EPI)AfAm (>60 ml/min/1.73 sqM) Est GFR (CKD-EPI)NonAf (>60 ml/min/1.73 sqM) Glucose (74-99) mg/dL Calcium (8.4-10.2) mg/dL Magnesium (1.6-2.3) mg/dL Total Bilirubin (0.2-1.3) mg/dL AST (14-36) U/L ALT (4-34) U/L Alkaline Phosphatase (38-126) U/L Troponin I <0.012 (0.000-0.034) ng/mL Total Protein (6.3-8.2) g/dL Albumin (3.5-5.0) g/dL Lipase (23-300) U/L Disposition Clinical Impression: Chest pain Disposition: ADMITTED IP TO THIS [facility] Condition: Stable Is patient prescribed a controlled substance at d/c from ED?: No Time of Disposition: 21:42
[2024-01-09 20:40] LABS: Basophils % (A) 1 %; Eosinophils # (A) 0.2 k/uL (0-0.7); Eosinophils % (A) 3 %; HCT 44.1 % (34.0-46.0); HGB 14.5 gm/dL (11.4-16.0); Lymphocytes % (A) 32 %; MCH 31.5 pg (25.0-35.0); MCHC 32.9 g/dL (31.0-37.0); MCV 95.6 fL (80.0-100.0); Monocytes # (A) 0.3 k/uL (0-1.0); Monocytes % (A) 5 %; Neutrophils # (A) 3.7 k/uL (1.3-7.7); Neutrophils % (A) 58 %; Platelet Count 228 k/uL (150-450); RBC 4.61 m/uL (3.80-5.40); RDW 12.2 % (11.5-15.5); WBC 6.4 k/uL (3.8-10.6)
[2024-01-09 21:04] LABS: ALT 23 U/L (4-34); AST 21 U/L (14-36); African American GFR (CKD) >90 (>60 ml/min/1.73 sqM); Albumin 4.4 g/dL (3.5-5.0); Alkaline Phosphatase 50 U/L (38-126); Anion Gap 5 mmol/L; Blood Urea Nitrogen 13 mg/dL (7-17); Calcium 9.4 mg/dL (8.4-10.2); Carbon Dioxide 24 mmol/L (22-30); Chloride 105 mmol/L (98-107); Glucose 295 mg/dL (74-99); Lipase 211 U/L (23-300); Magnesium 1.5 mg/dL (1.6-2.3); Non-African American GFR(CKD) >90 (>60 ml/min/1.73 sqM); Potassium 4.1 mmol/L (3.5-5.1); Sodium 134 mmol/L (137-145); Total Bilirubin 0.6 mg/dL (0.2-1.3); Total Protein 6.8 g/dL (6.3-8.2)
[2024-01-09 21:20] LABS: INR 0.9 (<1.2)
[2024-01-09 21:21] LABS: Partial Thromboplastin Time 22.5 sec (22.0-30.0); Prothrombin Time 10.3 sec (10.0-12.5)
[2024-01-09] MEDS ORDERED: NALOXONE 0.4 MG/ML 1 ML VIAL IV PRN (21:38)
--- NOTE | 2024-01-09 21:44 | XR ---
EXAMINATION TYPE: XR chest 2V DATE OF EXAM: 01/09/2024 8:38 PM CLINICAL INDICATION:Female, 58 years old with history of Chest Pain; [facility] COMPARISON: 07/10/2023 TECHNIQUE: XR chest 2V. Frontal and lateral views of the chest.. FINDINGS: Lines/Tubes/Devices: No indwelling lines are seen. Monitor leads and other extraneous densities overlie the chest. Heart/mediastinum: Heart size is normal. Mediastinum appears normal. Pulmonary vascularity: Not increased, Lungs/Pleura: There is no evidence of pleural effusion, focal consolidation, or pneumothorax. Musculoskeletal: No acute osseous abnormality demonstrated in the limits of the exam. Mild chronic d egenerative changes. Mild elevation of the right hemidiaphragm. Other findings: None. IMPRESSION: No acute cardiopulmonary abnormality. [facility], , 01/09/2024 9:42 PM
[2024-01-09] MEDS: ASPIRIN 325 MG TAB PO STA (22:02)
[2024-01-09] MEDS: ACETAMINOPHEN TAB 500 MG TAB PO STA (22:03)
[2024-01-09] MEDS: MAGNESIUM SULFATE-D5W PMX 1 GM in DEXTROSE/WATER 1 100ML.BAG IVPB ONE (22:04)
[2024-01-09] MEDS: SODIUM CHLORIDE 0.9% 500 ML 500 ML IV ONE (22:04)
[2024-01-09] MEDS: SODIUM CHLORIDE 0.9% 1,000 ML IV SCH (23:25)
--- NOTE | 2024-01-10 12:13 | P.CRDCN ---
History of Present Illness Consult date: 01/10/24 Requesting physician: Ezekiel Constantino Reason for Consult (text): chest pain Chief complaint: chest pain History of present illness: Pleasant 58-year-old female patient who does not follow with cardiology. She has a history of hypertension hyperlipidemia and diabetes as well as being an occasional smoker. She presented to the emergency department with complaints of chest discomfort. The pain was in the lower sternum radiated to the back and was somewhat worse with deep inspiration. Pain started Thursday night and persisted so she came to the emergency department yesterday. She also comp lained of some nausea and headache with the discomfort. Troponins have been negative x 3. EKG showed sinus mechanism with possible old anterior NH, similar to previous with no evidence of acute ischemia. Vital signs have been stable she has been afebrile. At the time my examination she is pain-free. She is reasonably active without any exertional symptoms. She has a family history of her dad having CAD diagnosed in his early 60s. She denies any shortness of breath, palpitations, dizziness or lightheadedness. She has no orthopnea, edema or PND. Past Medical History Past Medical History: Diabetes Mellitus, GERD/Reflux, Hyperlipidemia, Hypertensi on, Thyroid Disorder Additional Past Medical History / Comment(s): Unsure of what was wrong with her thyroid, states half of it was removed. carpa tunnel History of Any Multi-Drug Resistant Organisms: None Reported Past Surgical History: Bladder Surgery, Orthopedic Surgery, Tonsillectomy, Tubal Ligation, Uterine Ablation Additional Past Surgical History / Comment(s): Partial thyroidectomy, CYST RE MOVED FROM BACK, RIGHT KNEE SURGERY, left knee maniscus repair, Past Anesthesia/Blood Transfusion Reactions: Postoperative Nausea & Vomiting (PONV) Past Psychological History: No Psychological Hx Reported Smoking Status: Current every day smoker Past Alcohol Use History: None Reported, Occasional Additional Past Alcohol Use History / Comment(s): Has been an on and off smoker. Smokes 2-3 cigarettes per day. Past Drug Use History: None Reported - Past Family History Mother Family Medical History: Diabetes Mellitus Father Additional Family Medical History / Comment(s): stents placed Medications and Allergies Home Medications Medication Instructions Recorded Confirmed Type sitaGLIPtin [Januvia] 100 mg PO DAILY 07/15/17 01/10/24 History Atorvastatin [Lipitor] 20 mg PO DAILY 01/28/18 01/10/24 History Dulaglutide [Trulicity] 4.5 mg SQ FR 11/05/21 01/10/24 History Omeprazole 20 mg PO DAILY 11/05/21 01/10/24 History metFORMIN HCL [Glucophage] 1,000 mg PO BID 11/05/21 01/10/24 History Magnesium (Unknown Strength) 1 tab PO DAILY 01/10/24 01/10/24 History Multivitamins, Thera [Multivitamin 1 tab PO DAILY 01/10/24 01/10/24 History (formulary)] Sertraline [Zoloft] 50 mg PO DAILY 01/10/24 01/10/24 History lisinopriL [Zestril] 10 mg PO DAILY 01/10/24 01/10/24 History Allergies Allergy/AdvReac Type Severity Reaction Status Date / Time No Known Allergies Allergy Verified 01/10/24 10:42 Physical Exam Vitals: Vital Signs Temp Pulse Pulse Resp BP BP Pulse Ox 01/10/24 07:00 97.7 F 66 16 126/78 98 01/10/24 06:46 66 16 136/83 96 01/10/24 06:03 62 16 131/70 96 01/10/24 03:30 62 16 120/78 96 01/09/24 21:15 81 16 129/82 96 01/09/24 20:11 97.9 F 85 17 148/80 97 Intake and Output 01/09/24 01/10/24 01/10/24 22:59 06:59 14:59 Intake Total 118 Balance 118 Intake: Oral 118 Other: Weight 72.575 kg 72.575 kg PHYSICAL EXAMINATION: This is a 58-year-old female in no apparent distress at the time of my examination. VITAL SIGNS: Reviewed. HEENT: Head is atraumatic, normocephalic. Pupils are equal, round. Sclerae anicteric. Conjunctivae are clear. Mucous membranes of the mouth are moist. Neck is supple. There is no elevated jugular venous pressure. No carotid bruit is heard. CHEST EXAMINATION: Clear to auscultation bilaterally. No wheezes rales or rhonchi. Respirations even and nonlabored. HEART EXAMINATION: Heart regular, positive S1 and S2. No S3. No S4. No clicks, rubs or murmurs. ABDOMEN: Soft, nontender. Bowel sounds are heard. No organomegaly noted. EXTREMITIES: 2+ peripheral pulses with no evidence of peripheral edema and no calf tenderness noted. NEUROLOGIC EXAMINATION: Patient is awake, alert and oriented x3. Results 01/09/24 20:31 01/09/24 20:31 Cardiac Enzymes 01/09/24 01/09/24 01/09/24 Range/Units 20:31 20:31 23:05 AST 21 (14-36) U/L Troponin I <0.012 <0.012 (0.000-0.034) ng/mL 01/10/24 Range/Units 04:32 AST (14-36) U/L Troponin I <0.012 (0.000-0.034) ng/mL Coagulation 01/09/24 Range/Units 20:31 PT 10.3 (10.0-12.5) sec APTT 22.5 (22.0-30.0) sec CBC 01/09/24 Range/Units 20:31 WBC 6.4 (3.8-10.6) k/uL RBC 4.61 (3.80-5.40) m/uL Hgb 14.5 (11.4-16.0) gm/dL Hct 44.1 (34.0-46.0) % Plt Count 228 (150-450) k/uL Comprehensive Metabolic Panel 01/09/24 Range/Units 20:31 Sodium 134 L (137-145) mmol/L Potassium 4.1 (3.5-5.1) mmol/L Chloride 105 (98-107) mmol/L Carbon Dioxide 24 (22-30) mmol/L BUN 13 (7-17) mg/dL Creatinine 0.57 (0.52-1.04) mg/dL Glucose 295 H (74-99) mg/dL Calcium 9.4 (8.4-10.2) mg/dL AST 21 (14-36) U/L ALT 23 (4-34) U/L Alkaline Phosphatase 50 (38-126) U/L Total Protein 6.8 (6.3-8.2) g/dL Albumin 4.4 (3.5-5.0) g/dL Current Medications Generic Name Dose Route Start Last Admin Trade Name Freq PRN Reason Stop Dose Admin Acetaminophen 650 mg 01/09/24 21:38 Acetaminophen Tab 325 Mg Tab PO Q6HR PRN Mild Pain or Fever > 100.5 Hydromorphone HCl 0.5 mg 01/09/24 21:38 Hydromorphone 0.5 Mg/0.5 Ml Syringe IVP Q3HR PRN Moderate Pain (Scale 4 to 6) Sodium Chloride 1,000 mls @ 75 mls/hr 01/09/24 21:45 01/09/24 23:25 Saline 0.9% IV 75 mls/hr .[id number] SOTERO Administration Naloxone HCl 0.2 mg 01/09/24 21:38 Naloxone 0.4 Mg/Ml 1 Ml Vial IV Q2M PRN Opioid Reversal Ondansetron HCl 4 mg 01/09/24 21:38 Ondansetron 4 Mg/2 Ml Vial IVP Q8HR PRN Nausea And Vomiting Intake and Output 01/09/24 01/10/24 01/10/24 22:59 06:59 14:59 Intake Total 118 Balance 118 Intake: Oral 118 Other: Weight 72.575 kg 72.575 kg 01/09/24 20:31 01/09/24 20:31 Assessment and Plan Assessment: #1 symptoms of chest pain, acute coronary event has been ruled out, troponins negative x 3 #2 hypertension #3 hyperlipidemia #4 diabetes mellitus most recent A1c around 8% #5 nicotine dependence Plan: From cardiology's perspective we will add low-dose aspirin. We will obtain a 2D echo with Doppler study to assess cardiac structure and function. Will schedule the patient for stress echocardiogram to be done in the morning. Encourage smoking cessation. Will continue to follow the patient and provide further recommendations accordingly. MERCHANDISING INTERN note has been reviewed, I agree with a documented findings and plan of care. Patient was seen and examined.
[2024-01-10] MEDS ORDERED: DEXTROSE 50% SYRINGE 50 ML IVP PRN ×2 (13:09)
[2024-01-10] MEDS: LINAGLIPTIN 5 MG TABLET PO SCH (13:11)
[2024-01-10] MEDS: metFORMIN 500 MG TAB PO SCH (13:11)
[2024-01-10] MEDS: lisinopriL 10 MG TAB PO SCH (13:11)
[2024-01-10] MEDS: ENOXAPARIN 40 MG/0.4 ML SYRINGE SQ SCH (13:11)
[2024-01-10] MEDS: MULTIVITAMINS, THERA 1 EACH TAB PO SCH (13:11)
[2024-01-10] MEDS: PANTOPRAZOLE 40 MG TABLET PO SCH (13:11)
[2024-01-10] MEDS: SERTRALINE 50 MG TAB PO SCH (13:11)
[2024-01-10] MEDS: ATORVASTATIN 20 MG TAB PO SCH (13:11)
[2024-01-10] MEDS: INSULIN ASPART (NovoLOG) 100 UNIT/ML VIAL SQ SCH (13:24)
[2024-01-10] MEDS: ACETAMINOPHEN TAB 325 MG TAB PO PRN (14:51)
--- NOTE | 2024-01-10 22:44 | P.HPIM ---
History of Present Illness H&P Date: 01/10/24 Chief Complaint: Chest pain Pleasant 58-year-old patient who follows with Dr. Kami Glasgow. Friend patient sitting and watching TV when at the lower end of sternum patient noticed pain there. Is been coming on and off thigh since then. Some associated shortness of breath lightheadedness nausea and breaking out into perspiration. Patient last tress test was about 3 years ago. Patient also had some flareup of her reflux symptoms. Decided to come in. at the bedside. Review of systems: GEN.: None EYES: None HEENT: None NECK: None RESPIRATORY: None CARDIOVASCULAR: As above e GASTROINTESTINAL: As above e GENITOURINARY: None MUSCULOSKELETAL: None LYMPHATICS: None HEMATOLOGICAL: None PSYCHIATRY: None NEUROLOGICAL: None Social history: Smokes 3 to 4 cigarettes a day off-and-on. Alcohol occasionally. Works as a hairdresser. . Physical examination: VITAL SIGNS: 97.7, 66, 16, 126 x 78, 98% room air GENERAL: BMI 30.2, reclining bed awake comfortable. EYES: Pupils equal. Conjunctiva erick l. HEENT: External appearance of nose and ears normal, oral cavity grossly normal. NECK: JVD not raised; masses not palpable. HEART: First and second heart sounds are normal; no edema. LUNGS: Respiratory rate normal; clear to auscultation. ABDOMEN: Soft, nontender, liver spleen not palpable, no masses palpable. PSYCH: Alert and oriented x3; mood and affect erick l. MUSCULOSKELETAL:No Clubbing/cyanosis;muscles-grossly intact NEUROLOGICAL: Cranial nerves grossly intact; no facial asymmetry, power and sensation grossly intact. LYMPHATICS: No lymph nodes palpable in the axilla and neck INVESTIGATIONS, reviewed in the clinical context: January 08: White count 6.4 hemoglobin 14.5 potassium 4.1 creatinine 0.57. Blood glucose 295 Troponin I less than 0.012 x 3 Chest x-ray film personally reviewed by me-unremarkable EKG tracing personally reviewed by me-normal sinus rhythm Assessment and plan: -Anterior chest wall pain with some cardiac sounding symptoms. Cardiac risk factors include diabetes, hypertension, hyperlipidemia Troponins x 3 negative. EKG unremarkable. Cardiology consulted. Telemetry. For stress test. -Diabetes mellitus type 2 on oral hypoglycemic Accu-Cheks with sliding scale. Trulicity, Glucophage, Januvia -GERD Omeprazole 20 mg a day -Hyperlipidemia Lipitor 20 mg a day -Essential hypertension Zestril 10 mg a day -Depression anxiety Zoloft -Full code Care was discussed with patient at the bedside. Questions answered. Past Medical History Past Medical History: Diabetes Mellitus, GERD/Reflux, Hyperlipidemia, Hypertension, Thyroid Disorder Additional Past Medical History / Comment(s): Unsure of what was wrong with her thyroid, states half of it was removed. carpa tunnel History of Any Multi-Drug Resistant Organisms: None Reported Past Surgical History: Bladder Surgery, Orthopedic Surgery, Tonsillectomy, Tubal Ligation, Uterine Ablation Additional Past Surgical History / Comment(s): Partial thyroidectomy, CYST REM CHUCKIE FROM BACK, RIGHT KNEE SURGERY, left knee maniscus repair, Past Anesthesia/Blood Transfusion Reactions: Postoperative Nausea & Vomiting (PONV) Past Psychological History: No Psychological Hx Reported Smoking Status: Current every day smoker Past Alcohol Use History: None Reported, Occasional Additional Past Alcohol Use History / Comment(s): Has been an on and off smoker. Smokes 2-3 cigarettes per day. Past Drug Use History: None Reported - Past Family History Mother Family Medical History: Diabetes Mellitus Father Additional Family Medical History / Comment(s): stents placed Medications and Allergies Home Medications Medication Instructions Recorded Confirmed Type sitaGLIPtin [Januvia] 100 mg PO DAILY 07/15/17 01/10/24 History Atorvastatin [Lipitor] 20 mg PO DAILY 01/28/18 01/10/24 History Dulaglutide [Trulicity] 4.5 mg SQ FR 11/05/21 01/10/24 History Omeprazole 20 mg PO DAILY 11/05/21 01/10/24 History metFORMIN HCL [Glucophage] 1,000 mg PO BID 11/05/21 01/10/24 History Magnesium (Unknown Strength) 1 tab PO DAILY 01/10/24 01/10/24 History Multivitamins, Thera [Multivitamin 1 tab PO DAILY 01/10/24 01/10/24 History (formulary)] Sertraline [Zoloft] 50 mg PO DAILY 01/10/24 01/10/24 History lisinopriL [Zestril] 10 mg PO DAILY 01/10/24 01/10/24 History Allergies Allergy/AdvReac Type Severity Reaction Status Date / Time No Known Allergies Allergy Verified 01/10/24 10:42 Physical Exam Vitals: Vital Signs Temp Pulse Pulse Resp BP BP Pulse Ox 01/10/24 07:00 97.7 F 66 16 126/78 98 01/10/24 06:46 66 16 136/83 96 01/10/24 06:03 62 16 131/70 96 01/10/24 03:30 62 16 120/78 96 01/09/24 21:15 81 16 129/82 96 01/09/24 20:11 97.9 F 85 17 148/80 97 Intake and Output 01/09/24 01/10/24 01/10/24 22:59 06:59 14:59 Intake Total 118 Balance 118 Intake: Oral 118 Other: Weight 72.575 kg 72.575 kg Results CBC & Chem 7: 01/09/24 20:31 01/09/24 20:31 Labs: Abnormal Lab Results - Last 24 Hours (Table) 01/09/24 Range/Units 20:31 Sodium 134 L (137-145) mmol/L Glucose 295 H (74-99) mg/dL Magnesium 1.5 L (1.6-2.3) mg/dL
--- NOTE | 2024-01-11 10:39 | P.PN ---
Subjective Progress Note Date: 01/11/24 History of present illness: Pleasant 58-year-old female patient who does not follow with cardiology. She has a history of hypertension hyperlipidemia and diabetes as well as being an occasional smoker. She presented to the emergency department with complaints of chest discomfort. The pain was in the lower sternum radiated to the back and was somewhat worse with deep inspiration. Pain started Thursday night and persisted so she came to the emergency department yesterday. She also complained of some nausea and headache with the discomfort. Troponins have been negative x 3. EKG showed sinus mechanism with possible old anterior IL, similar to previous with no evidence of acute ischemia. Vital signs have been stable she has been afebrile. At the time my examination she is pain-free. She is reasonably active without any exertional symptoms. She has a family history of her dad having CAD diagnosed in his early 60s. She denies any shortness of breath, palpitations, dizziness or lightheadedness. She has no orthopnea, edema or PND. 01/10 Patient is seen today in follow-up. She is scheduled for stress echocardiogram today. She denies having any chest pain shortness of breath, dizziness. Blood pressure 124/74, pulse ox 96% on room air, heart rate in the 70s. PHYSICAL EXAMINATION: This is a 58-year-old female in no apparent distress at the time of my exam ination. VITAL SIGNS: Reviewed. HEENT: Head is atraumatic, normocephalic. Pupils are equal, round. Sclerae anicteric. CHEST EXAMINATION: Clear to auscultation bilaterally. No wheezes rales or rhonc hi. Respirations even and nonlabored. HEART EXAMINATION: Heart regular, positive S1 and S2. No S3. No S4. No clicks, rubs or murmurs. EXTREMITIES: 2+ peripheral pulses with no evidence of peripheral edema and no calf tenderness noted. Assessment: #1 symptoms of chest pain, acute coronary event has been ruled out, troponins negative x 3 #2 hypertension #3 hyperlipidemia #4 diabetes mellitus most recent A1c around 8% #5 nicotine dependence Plan: Continue patient on the current cardiac medications: Aspirin 81 mg daily, atorvastatin 20 mg daily, lisinopril 10 mg daily Obtain 2D echo with Doppler study to assess cardiac structure and function. Stress echocardiogram to be done this morning. Smoking cessation. Patient will be provided the [place] quit line information at discharge If stress echocardiogram is unremarkable, patient is cleared for discharge and may follow-up in the office with Dr. Murray in 2 weeks. Nurse practitioner note has been reviewed, I agree with documented findings and plan of care. Patient was seen and examined. Objective - Vital Signs Vital signs: Vital Signs Temp 97.9 F 01/11/24 07:00 Pulse 71 01/11/24 07:00 Resp 16 01/11/24 07:00 BP 124/74 01/11/24 07:00 Pulse Ox 96 01/11/24 07:00 FiO2 Intake & Output 01/10/24 01/11/24 01/11/24 18:59 06:59 18:59 Intake Total 354 Balance 354 Intake: Oral 354 Other: Voiding Method Toilet Toilet # Voids 3 - Labs CBC & Chem 7: 01/09/24 20:31 01/09/24 20:31
[2024-01-11] MEDS: ONDANSETRON 4 MG/2 ML VIAL IVP PRN (11:07)
[2024-01-11] MEDS: HYDROmorphone 0.5 MG/0.5 ML SYRINGE IVP PRN (11:08)
[2024-01-11 15:49] VITALS: BP 101/63; PULSE 69; RESP 18; TEMP 98
--- NOTE | 2024-01-11 17:37 | CA ---
Stress Echo Report Jeannette Baker Age: 58 Gender: F : 1965 Exam Date: 01/11/2024 10:22 Exam Location: [facility] Ht (in): 61 Wt (lb): 160 Ordering Physician: Juli Lindsey Referring Physician: [id number] Cruz Peanut Roaster: SURY, Technologist Procedure CPT: Indication: Chest Pain ICD-9 Codes: Rhythm: Patient History: Chest pain, palpitations and family history of heart disese. Cardiac Medications: Medications in past 24 hours: Contrast: Stress Results Protocol: Tirso Total dose(mL): Exercise Duration (min:sec): 7:[address] Depression (mm): Angina Score: Seay Score: METS: 8.7 Resting HR: 89 Resting BP: 121 / 80 Peak HR: 150 Peak BP: 181 / 85 Max Predicted HR: 162 93 % Max Predicted HR Target HR: 138 Double Product: 53707 Stress Summary: BP Response: Reason for Termination: Reached target heart rate or work-load Cardiac Symptoms: No symptoms ECG Analysis Resting ECG: Normal sinus rhythm normal axis normal intervals Stress ECG: Exercised on Tirso protocol for 7 minutes achieving 85% of predicted maximal heart rate without chest pain or diagnostic ST segment depression Arrhythmia: No significant cardiac arrhythmia Echo Analysis Resting Echo: Normal left ventricular size wall motion and systolic function Peak Echo Analysis: Normal hyperdynamic response MEASUREMENTS (Male/Female) Normal Values CONCLUSIONS Above average exercise tolerance Negative stress test by EKG criteria Negative stress echo Dr. Ion Kirkland MD (Electronically Signed) Final Date: 11 January 2024 17:36
--- NOTE | 2024-01-11 19:39 | P.DS ---
Providers Date of admission: 01/09/24 21:38 Expected date of discharge: 01/11/24 Attending physician: Ezekiel Constantino Consults: 01/09/24 21:38 Consult Physician Routine Consulting Provider: Sang Lowe Consult Reason/Comments: CHest pain Do you want consulting provider notified?: Yes Primary care physician: Kami Glasgow [facility] Course: Chief Complaint: Chest pain Pleasant 58-year-old patient who follows with Dr. Kami Glasgow. Friend patient sitting and watching TV when at the lower end of sternum patient noticed pain there. Is been coming on and off thigh since then. Some associated shortness of breath lightheadedness nausea and breaking out into perspiration. Patient last tress test was about 3 years ago. Patient also had some flareup of her reflux symptoms. Decided to come in. at the bedside. January 10: Saw the patient this morning. No further chest pain. Stress echocardiogram came back. Negative. Being discharged on baby aspirin. Follow- up with cardiology outpatient. Lifestyle change including smoking discontinuation discussed. was present Social history: Smokes 3 to 4 cigarettes a day off-and-on. Alcohol occasionally. Works as a hairdresser. . Physical examination: VITAL SIGNS: 98, 69, 18, 101 x 63, 96% room air GENERAL: Comfortable EYES: Pupils equal. Conjunctiva erick l. HEENT: External appearance of nose and ears normal, oral cavity grossly normal. NECK: JVD not raised; masses not palpable. HEART: First and second heart sounds are normal; no edema. LUNGS: Respiratory rate normal; clear to auscultation. ABDOMEN: Soft, nontender, liver spleen not palpable, no masses palpable. PSYCH: Alert and oriented x3; mood and affect erick l. MUSCULOSKELETAL:No Clubbing/cyanosis;muscles-grossly intact INVESTIGATIONS, reviewed in the clinical context: January 08: White count 6.4 hemoglobin 14.5 potassium 4.1 creatinine 0.57. Blood glucose 295 Troponin I less than 0.012 x 3 Chest x-ray film personally reviewed by me-unremarkable EKG tracing personally reviewed by me-normal sinus rhythm Assessment and plan: -Anterior chest wall pain with some cardiac sounding symptoms. Cardiac risk factors include diabetes, hypertension, hyperlipidemia: Could be musculoskeletal pain Troponins x 3 negative. EKG unremarkable. Stress echocardiogram: Negative -Diabetes mellitus type 2 on oral hypoglycemic Accu-Cheks with sliding scale. Trulicity, Glucophage, Januvia -GERD Omeprazole 20 mg a day -Hyperlipidemia Lipitor 20 mg a day -Essential hypertension Zestril 10 mg a day -Depression anxiety Zoloft -Full code Position: Home Past Medical History Past Medical History: Diabetes Mellitus, GERD/Reflux, Hyperlipidemia, Hypertension, Thyroid Disorder Additional Past Medical History / Comment(s): Unsure of what was wrong with her thyroid, states half of it was removed. carpa tunnel History of Any Multi-Drug Resistant Organisms: None Reported Past Surgical History: Bladder Surgery, Orthopedic Surgery, Tonsillectomy, Tubal Ligation, Uterine Ablation Additional Past Surgical History / Comment(s): Partial thyroidectomy, CYST REMOVED FROM BACK, RIGHT KNEE SURGERY, left knee maniscus repair, Past Anesthesia/Blood Transfusion Reactions: Postoperative Nausea & Vomiting (PONV) Past Psychological History: No Psychological Hx Reported Smoking Status: Current every day smoker Past Alcohol Use History: None Reported, Occasional Additional Past Alcohol Use History / Comment(s): Has been an on and off smoker. Smokes 2-3 cigarettes per day. Past Drug Use History: None Reported Plan - Discharge Summary Discharge Rx Participant: Yes New Discharge Prescriptions: New Aspirin 81 mg PO DAILY tab Continue sitaGLIPtin [Januvia] 100 mg PO DAILY Atorvastatin [Lipitor] 20 mg PO DAILY Omeprazole 20 mg PO DAILY Multivitamins, Thera [Multivitamin (formulary)] 1 tab PO DAILY Magnesium (Unknown Strength) 1 tab PO DAILY metFORMIN HCL [Glucophage] 1,000 mg PO BID Dulaglutide [Trulicity] 4.5 mg SQ FR lisinopriL [Zestril] 10 mg PO DAILY Sertraline [Zoloft] 50 mg PO DAILY Discharge Medication List sitaGLIPtin [Januvia] 100 mg PO DAILY 07/15/17 [History] Atorvastatin [Lipitor] 20 mg PO DAILY 01/28/18 [History] Dulaglutide [Trulicity] 4.5 mg SQ FR 11/05/21 [History] Omeprazole 20 mg PO DAILY 11/05/21 [History] metFORMIN HCL [Glucophage] 1,000 mg PO BID 11/05/21 [History] Magnesium (Unknown Strength) 1 tab PO DAILY 01/10/24 [History] Multivitamins, Thera [Multivitamin (formulary)] 1 tab PO DAILY 01/10/24 [History] Sertraline [Zoloft] 50 mg PO DAILY 01/10/24 [History] lisinopriL [Zestril] 10 mg PO DAILY 01/10/24 [History] Aspirin 81 mg PO DAILY tab 01/11/24 [Rx] Follow up Appointment(s)/Referral(s): Kami Glasgow DO [Primary Care Provider] - 1 Week Ion Kirkland MD [STAFF PHYSICIAN] - 3 Weeks Patient Instructions/Handouts: Chest Pain (DC) Discharge Disposition: HOME SELF-CARE
[2024-01-12] MEDS ORDERED: ASPIRIN 81 MG PO SCH (09:00)
--- NOTE | 2024-01-12 10:41 | CA ---
Transthoracic Echo Report Name: Jeannette Baker Age: 58 Gender: F : 1965 Exam Date: 01/11/2024 10:36 Exam Location: [place] [facility] Ht (in): 61 Wt (lb): 160 Ordering Physician: Juli Lindsey Attending/Referring Phys: [id number], César Petrology Teacher Reyna Sanchez RDCS Procedure CPT: Indications: Chest Pain Cardiac Hx: Technical Quality: Fair Contrast 1: Total Dose (mL): Contrast 2: Total Dose (mL): MEASUREMENTS (Male / Female) Normal Values 2D ECHO LV Diastolic Diameter PLAX 4.2 cm 4.2 - 5.9 / 3.9 - 5.3 cm LV Systolic Diameter PLAX 2.9 cm IVS Diastolic Thickness 1.3 cm 0.6 - 1.0 / 0.6 - 0.9 cm LVPW Diastolic Thickness 1.1 cm 0.6 - 1.0 / 0.6 - 0.9 cm LV Relative Wall Thickness 0.6 RV Internal Dim ED PLAX 2.8 cm LA Volume 40.5 cm??? 18 - 58 / 22 - 52 cm??? LA Volume Index 22.6 cm???/m??? 16 - 28 cm???/m??? M-MODE Aortic Root Diameter MM 3.1 cm LA Systolic Diameter MM 3.5 cm LA Ao Ratio MM 1.1 AV Cusp Separation MM 2.0 cm DOPPLER AV Peak Velocity 86.7 cm/s AV Peak Gradient 3.0 mmHg AV Mean Velocity 68.1 cm/s AV Mean Gradient 2.0 mmHg AV Velocity Time Integral 17.6 cm LVOT Peak Velocity 77.5 cm/s LVOT Peak Gradient 2.4 mmHg LVOT Velocity Time Integral 15.8 cm MV Area PHT 5.3 cm??? Mitral E Point Velocity 62.6 cm/s Mitral A Point Velocity 75.7 cm/s Mitral E to A Ratio 0.8 MV Deceleration Time 144.3 ms MV E' Velocity 5.0 cm/s Mitral E to MV E' Ratio 12.5 FINDINGS Left Ventricle Mildly increased left ventricular wall thickness. Left ventricular cavity size normal. Normal left ventricular systolic function with no obvious regional wall motion abnormalities. Left ventricular ejection fraction is estimated at 55-60 %. Grade 1 diastolic dysfunction. Right Ventricle Normal right ventricular size and function. Right ventricular systolic pressure within normal limits. Right Atrium Normal right atrial size. Left Atrium Normal left atrial size. Mitral Valve Structurally normal mitral valve. Trace mitral regurgitation. Aortic Valve No aortic valve stenosis or regurgitation. No aortic valve stenosis or regurgitation. Trileaflet aortic valve. Tricuspid Valve Structurally normal tricuspid valve. Mild tricuspid regurgitation. Pulmonic Valve Structurally normal pulmonic valve. Pericardium No thickening/calcification of the pericardium. Aorta Normal size aortic root and proximal ascending aorta. CONCLUSIONS Normal LV function Previewed by: Dr. Ion Kirkland MD (Electronically Signed) Final Date: 12 January 2024 10:40
[2024-01-15] MEDS ORDERED: NON FORMULARY DRUG (Dulaglutide [Trulicity] 4.5 MG/0.5 ML Each) SQ SCH (09:00)
[2024-01-15 15:04] LABS: Glucose,Whole Blood 198 mg/dL (70-110)
[2024-01-15 15:04] LABS: Glucose,Whole Blood 160 mg/dL (70-110)
[2024-01-15 15:05] LABS: Glucose,Whole Blood 159 mg/dL (70-110)
[2024-01-15 15:05] LABS: Glucose,Whole Blood 138 mg/dL (70-110)
[2024-01-15 15:05] LABS: Glucose,Whole Blood 178 mg/dL (70-110)
[2024-01-15 15:06] LABS: Glucose,Whole Blood 183 mg/dL (70-110)
== END 2024-01-11 19:31 | disposition home or self-care (01) ==
LOC: EC 20:10 → 6NMEDSUR 21:38
PROVIDERS: ADMIT Hospitalist; ATTEND Hospitalist
DX: R07.2 Precordial pain (principal); E11.9 Type 2 diabetes mellitus without complications; K21.9 Gastro-esophageal reflux disease without esophagitis; E78.5 Hyperlipidemia, unspecified; I10 Essential (primary) hypertension; F32.A Depression, unspecified; F41.9 Anxiety disorder, unspecified; F17.210 Nicotine dependence, cigarettes, uncomplicated; Z79.84 Long term (current) use of oral hypoglycemic drugs; Z79.85 Long-term (current) use of injectable non-insulin antidiabetic drugs; Z79.899 Other long term (current) drug therapy; Z82.49 Family history of ischemic heart disease and other diseases of the circulatory system
CPT/HCPCS: 36415; 71046; 80053; 83690; 83735; 84484; 85025; 85379; 85610; 85730; 93005; 93306; 93351; 96365; 96372; 96375; 99285

== ENCOUNTER 2024-07-10 18:57 | Emergency (ER) | payer MEDICAID, OTHER ==
[2024-07-10 19:03] VITALS: TEMP 98.2
--- NOTE | 2024-07-10 19:27 | ED ---
Chest Pain HPI - General Chief Complaint: Chest Pain Stated Complaint: back pain, chest pain, tingling tongue, headache Source: patient, RN notes reviewed, old records reviewed Mode of arrival: ambulatory Limitations: no limitations - History of Present Illness Initial Comments: This is a 58-year-old female with multiple medical comorbidities including diabetes coming in for chest pain abdominal pain epigastric pain nausea vomiting. No fevers. Patient has chest pain pain that goes to her back with persistent nausea vomiting for few days now. Symptoms are persistent mild headache today mild shortness of breath MD Complaint: chest pain -: days(s) Onset: during rest, during exertion Pain Location: epigastric Pain Radiation: none Severity: moderate Severity scale (1-10): 4 Quality: tightness, sharp Consistency: intermittent Improves With: nothing Worsens With: nothing Anginal Symptoms: nausea, vomiting, dyspnea Other Symptoms: palpitations Treatments Prior to Arrival: none - Related Data Home Medications Medication Instructions Recorded Confirmed sitaGLIPtin [Januvia] 100 mg PO DAILY 07/15/17 05/13/24 Atorvastatin [Lipitor] 20 mg PO DAILY 01/28/18 05/13/24 Dulaglutide [Trulicity] 4.5 mg SQ BERNAL 11/05/21 05/13/24 Omeprazole 20 mg PO DAILY 11/05/21 05/13/24 metFORMIN HCL [Glucophage] 1,000 mg PO BID 11/05/21 05/13/24 Magnesium (Unknown Strength) 1 tab PO DAILY 01/10/24 05/13/24 Multivitamins, Thera [Multivitamin 1 tab PO DAILY 01/10/24 05/13/24 (formulary)] Sertraline [Zoloft] 50 mg PO DAILY 01/10/24 05/13/24 lisinopriL [Zestril] 10 mg PO DAILY 01/10/24 05/13/24 Previous Rx's Medication Instructions Recorded Aspirin 81 mg PO DAILY tab 01/11/24 Allergies Allergy/AdvReac Type Severity Reaction Status Date / Time No Known Allergies Allergy Verified 07/10/24 19:03 Review of Systems ROS Statement: Those systems with pertinent positive or pertinent negative responses have been documented in the HPI. ROS Other: All systems not noted in ROS Statement are negative. Past Medical History Past Medical History: Diabetes Mellitus, GERD/Reflux, Hyperlipidemia, Hypertension, Thyroid Disorder Additional Past Medical History / Comment(s): Unsure of what was wrong with her thyroid, states half of it was removed. carpa tunnel History of Any Multi-Drug Resistant Organisms: None Reported Past Surgical History: Bladder Surgery, Cholecystectomy, Orthopedic Surgery, Tonsillectomy, Tubal Ligation, Uterine Ablation Additional Past Surgical History / Comment(s): Partial thyroidectomy, CYST REMOVED FROM BACK, RIGHT KNEE SURGERY, left knee maniscus repair, carpal tunnel left hand and trigger left hand , bladder suspension Past Anesthesia/Blood Transfusion Reactions: Postoperative Nausea & Vomiting (PONV) Additional Past Anesthesia/Blood Transfusion Reaction / Comment(s): no blood transfusion Past Psychological History: No Psychological Hx Reported Smoking Status: Current every day smoker - Past Family History Mother Family Medical History: Diabetes Mellitus Father Additional Family Medical History / Comment(s): stents placed General Exam Limitations: no limitations General appearance: alert, in no apparent distress Head exam: Present: atraumatic, normocephalic, normal inspection Eye exam: Present: normal appearance, PERRL, EOMI. Absent: scleral icterus, conjunctival injection, periorbital swelling ENT exam: Present: normal exam, mucous membranes moist Neck exam: Present: normal inspection. Absent: tenderness, meningismus, lymphadenopathy Respiratory exam: Present: normal lung sounds bilaterally. Absent: respiratory distress, wheezes, rales, rhonchi, stridor Cardiovascular Exam: Present: regular rate, normal rhythm, normal heart sounds. Absent: systolic murmur, diastolic murmur, rubs, gallop, clicks GI/Abdominal exam: Present: soft, tenderness, normal bowel sounds. Absent: distended, guarding, rebound, rigid Extremities exam: Present: normal inspection, full ROM, normal capillary refill. Absent: tenderness, pedal edema, joint swelling, calf tenderness Back exam: Present: normal inspection Neurological exam: Present: alert, oriented X3, CN II-XII intact Psychiatric exam: Present: normal affect, normal mood Skin exam: Present: warm, dry, intact, normal color. Absent: rash Course Vital Signs 07/10/24 07/10/24 07/10/24 19:00 21:23 23:00 Temperature 98.2 F Pulse Rate 87 94 98 Respiratory 17 18 18 Rate Blood Pressure 121/79 115/73 110/73 O2 Sat by Pulse 99 97 98 Oximetry 07/11/24 00:14 Temperature Pulse Rate 90 Respiratory 18 Rate Blood Pressure 108/76 O2 Sat by Pulse 98 Oximetry - Reevaluation(s) Reevaluation #1: Medical records reviewed Reevaluation #2: Patient still with occasional chest pain here in the ER Reevaluation #3: Patient informed of results questions answered Reevaluation #4: Was pt. sent in by a medical professional or institution (, [facility], [facility], urgent care, hospital, or care home...) When possible be specific @ -no Did you speak to anyone other than the patient for history (EMS, parent, family, police, friend...)? What history was obtained from this source @ -no Did you review nursing and triage notes (agree or disagree)? Why? @ -agree Are old charts reviewed (outside hosp., previous admission, EMS record, old EKG, old radiological studies, urgent care reports/EKG's, care home records)? Report findings @ -yes Differential Diagnosis (chest pain, altered mental status, abdominal pain women, abdominal pain men, vaginal bleeding, weakness, fever, dyspnea, syncope, headache, dizziness, GI bleed, back pain, seizure, CVA, palpatations, mental health, musculoskeletal)? @ -prior EKG interpreted by me (3pts min.). @ -yes X-rays interpreted by me (1pt min.). @ -yes negative for acute disease CT interpreted by me (1pt min.). @ -Yes negative for acute disease U/S interpreted by me (1pt. min.). @ -no What testing was considered but not performed or refused? (CT, X-rays, U/S, labs)? Why? @ -none What meds were considered but not given or refused? Why? @ -none Did you discuss the management of the patient with other professionals (professionals i.e. [facility] Holloway, [facility], lab, RT, psych nurse, social media designer, scale balancer, teacher, consumer loan officer, immigration case manager)? Give summary @ -no Was smoking cessation discussed for >3mins.? @ -no Was critical care preformed (if so, how long)? @ -no Were there social determinants of health that impacted care today? How? (Homelessness, low income, unemployed, alcoholism, drug addiction, transportation, low edu. Level, literacy, decrease access to med. care, snf, rehab)? @ -none Was there de-escalation of care discussed even if they declined (Discuss DNR or withdrawal of care, Hospice)? DNR status @ -no What co-morbidities impacted this encounter? (DM, HTN, Smoking, COPD, CAD, Cancer, CVA, ARF, Chemo, Hep., AIDS, mental health diagnosis, sleep apnea, morbid obesity)? @ -none Was patient admitted / discharged? Hospital course, mention meds given and route, prescriptions, significant lab abnormalities, going to OR and other pertinent info. @ -58 female to ER for chest pain, patient has normal CT scans elevated lipase likely cause, with epigastric pain. Patient symptoms are improving able to tolerate oral intake can be discharged home Discharge Undiagnosed new problem with uncertain prognosis? @ -no Drug Therapy requiring intensive monitoring for toxicity (Heparin, Nitro, In sulin, Cardizem)? @ -no Were any procedures done? @ -no Diagnosis/symptom? @ -Chest pain pancreatitis Acute, or Chronic, or Acute on Chronic? @ -Acute Uncomplicated (without systemic symptoms) or Complicated (systemic symptoms)? @ -Complicated Side effects of treatment? @ -no Exacerbation, Progression, or Severe Exacerbation? @ -exacerbation Poses a threat to life or bodily function? How? (Chest pain, [place], PA, pneumonia, PE, COPD, DKA, ARF, appy, cholecystitis, CVA, Diverticulitis, Homicidal, Suicidal, threat to staff... and all critical care pts) @ -yes with chest pain Reevaluation #5: Differential Chest Pain: Stable Angina, Unstable Angina, STEMI, NSTEMI Aortic Dissection, Pneumothorax, Musculoskeletal, Esophageal Spasm GERD, Cholecystitis, Pancreatitis, Zoster, this is not meant to be an all-inclusive list. Chest Pain MDM - MDM 58 female to ER for chest pain. No acute findings on multiple testing modalities here in the ER patient feels well and can be discharged home Disposition Clinical Impression: Pancreatitis, Chest pain Disposition: HOME SELF-CARE Condition: Fair Instructions (If sedation given, give patient instructions): Pancreatitis (ED) Is patient prescribed a controlled substance at d/c from ED?: No Referrals: Abhijit Anguiano DO [Primary Care Provider] - 1-2 days Time of Disposition: 23:55
[2024-07-10] MEDS: SODIUM CHLORIDE 0.9% 1,000 ML IV STA (19:55)
--- NOTE | 2024-07-10 20:22 | XR ---
EXAMINATION TYPE: XR chest 2V DATE OF EXAM: 07/10/2024 8:18 PM COMPARISON: 01/09/24 CLINICAL INDICATION: Female, 58 years old with history of Chest Pain: Shortness of breath TECHNIQUE: XR chest 2V views of the chest are obtained. FINDINGS: Scattered senescent parenchymal changes noted. No evidence for infiltrate. No evidence for atelectasis. Heart size is stable. Mediastinal structures are stable and grossly unremarkable. No evidence for hilar prominence. Degenerative changes dorsal spine. IMPRESSION: 1. No evidence for acute pulmonary disease. [facility], , 07/10/2024 8:20 PM
[2024-07-10 20:30] LABS: Basophils % (A) 0 %; Eosinophils # (A) 0.1 k/uL (0-0.7); Eosinophils % (A) 2 %; HCT 43.3 % (34.0-46.0); HGB 14.2 gm/dL (11.4-16.0); Lymphocytes # (A) 2.1 k/uL (1.0-4.8); Lymphocytes % (A) 34 %; MCH 30.4 pg (25.0-35.0); MCHC 32.9 g/dL (31.0-37.0); MCV 92.5 fL (80.0-100.0); Mean Platelet Volume 9.1; Monocytes # (A) 0.3 k/uL (0-1.0); Monocytes % (A) 5 %; Neutrophils # (A) 3.5 k/uL (1.3-7.7); Neutrophils % (A) 56 %; Platelet Count 227 k/uL (150-450); RBC 4.68 m/uL (3.80-5.40); RDW 12.6 % (11.5-15.5); WBC 6.2 k/uL (3.8-10.6)
[2024-07-10 20:48] LABS: INR 0.9 (<1.2); Prothrombin Time 10.3 sec (10.0-12.5)
[2024-07-10 20:54] LABS: Partial Thromboplastin Time 21.5 sec (22.0-30.0)
[2024-07-10 21:08] LABS: ALT 20 U/L (4-34); AST 16 U/L (14-36); African American GFR (CKD) >90 (>60 ml/min/1.73 sqM); Alkaline Phosphatase 56 U/L (38-126); Anion Gap 9 mmol/L; Blood Urea Nitrogen 22 mg/dL (7-17); Calcium 9.4 mg/dL (8.4-10.2); Carbon Dioxide 26 mmol/L (22-30); Chloride 97 mmol/L (98-107); Glucose 265 mg/dL (74-99); Lipase 369 U/L (23-300); Magnesium 1.4 mg/dL (1.6-2.3); Non-African American GFR(CKD) >90 (>60 ml/min/1.73 sqM); Potassium 4.2 mmol/L (3.5-5.1); Sodium 132 mmol/L (137-145); Total Bilirubin 0.3 mg/dL (0.2-1.3); Total Protein 6.5 g/dL (6.3-8.2)
[2024-07-10 21:14] LABS: NT-Pro-B-Type Natriuretic Pept <20 pg/mL
[2024-07-10 21:23] VITALS: RESP 18
[2024-07-10] MEDS: ONDANSETRON 4 MG/2 ML VIAL IVP STA (21:54)
[2024-07-10] MEDS: SODIUM CHLORIDE 0.9% 1,000 ML IV ONE ×2 (21:54→23:44)
[2024-07-10] MEDS: KETOROLAC 15 MG/ML 1 ML VIAL IVP STA (21:54)
[2024-07-10] MEDS: MAGNESIUM OXIDE 400 MG TAB PO STA ×2 (23:10)
--- NOTE | 2024-07-10 23:32 | CT ---
EXAM: CT Abdomen and Pelvis With Intravenous Contrast CLINICAL HISTORY: ITS.REASON CT Reason: pain TECHNIQUE: Axial computed tomography images of the abdomen and pelvis with intravenous contrast. CTDI is 19.25 mGy and DLP is 805.1 mGy-cm. This CT exam was performed using one or more of the following dose reduction techniques: automated exposure control, adjustment of the mA and/or kV according to patient size, and/or use of iterative reconstruction technique. COMPARISON: 07/10/2023 CT abdomen pelvis FINDINGS: ABDOMEN: Liver: Unremarkable. Gallbladder and bile ducts: Status post cholecystectomy. Pancreas: Unremarkable. Spleen: Unremarkable. Adrenals: Unremarkable. Kidneys and ureters: Scarring in the lower pole of the right kidney. Cyst in the superior pole of the right kidney measuring 2.8 cm. No suspicious lesion. No ureteral stone or hydronephrosis. Stomach and bowel: Unremarkable. PELVIS: Appendix: No findings to suggest acute appendicitis. Bladder: Unremarkable. Reproductive: Unremarkable as visualized. ABDOMEN and PELVIS: Intraperitoneal space: Unremarkable. No free air. No significant fluid collection. Bones/joints: No acute fracture. Soft tissues: Unremarkable. Vasculature: Unremarkable. Lymph nodes: Unremarkable. IMPRESSION: No acute findings in the abdomen or pelvis.
--- NOTE | 2024-07-10 23:34 | CT ---
EXAM: CT Angiography Chest With Intravenous Contrast CLINICAL HISTORY: ITS.REASON CT Reason: pain TECHNIQUE: Axial computed tomographic angiography images of the chest with intravenous contrast. CTDI is 19.25 mGy and DLP is 805.1 mGy-cm. This CT exam was performed using one or more of the following dose reduction techniques: automated exposure control, adjustment of the mA and/or kV according to patient size, and/or use of iterative reconstruction technique. MIP reconstructed images were created and reviewed. COMPARISON: CT chest 07/10/2023 FINDINGS: Pulmonary arteries: Unremarkable. No pulmonary embolism. Aorta: No acute findings. Normal caliber. No dissection. Lungs: No consolidation. Pleural space: No pleural effusion. No pneumothorax. Heart: Unremarkable. Bones/joints: No acute fracture. Soft tissues: Unremarkable. Lymph nodes: Unremarkable. IMPRESSION: Normal chest CTA. No pulmonary embolism.
[2024-07-11] MEDS: traMADol 50 MG STARTER PACK 3 TAB BTL PO STA (00:13)
[2024-07-11] MEDS: ONDANSETRON 4 MG ODT STARTER PACK 2 TAB BTL PO STA (00:13)
[2024-07-11 00:15] VITALS: BP 108/76; PULSE 90
== END 2024-07-11 00:14 | disposition home or self-care (01) ==
LOC: EC 18:57
DX: K85.90 Acute pancreatitis without necrosis or infection, unspecified (principal); R07.9 Chest pain, unspecified; E11.9 Type 2 diabetes mellitus without complications; F17.200 Nicotine dependence, unspecified, uncomplicated
CPT/HCPCS: 36415; 93005; 83880; 80053; 83690; 83735; 84484; 85025; 85610; 85730; 71046; 71275; 74177; 99285; 96374; 96375; 96361; J2405; J1885; S0119; Q9967

== ENCOUNTER 2024-08-05 09:21 | Day surgery (SDC) | payer MEDICAID, OTHER ==
[2024-08-02 09:48] VITALS: BMI 30.2
[~2024-08-05 09:21] MED LIST changes: -DEXAMETHASONE SOD PHOSPHATE 10 MG/ML 1 ML VIAL IV ONE; -HYDROmorphone 0.5 MG/0.5 ML SYRINGE IVP PRN; -LACTATED RINGERS 1,000 ML IV SCH; +LIDOCAINE 1% (10MG/ML) FOR IV START INTRADERMA PRN; -LIDOCAINE 1% 20 ML VIAL (10MG/ML) FOR IV START INTRADERMA PRN; -MIDAZOLAM 2 MG/2 ML VIAL IV PRN; -ONDANSETRON 4 MG/2 ML VIAL IVP ONE; -SCOPOLAMINE 1.5MG/72HR PATCH TRANSDERM ONE; -ceFAZolin IN SWFI 2 GM/20 ML SYRINGE IVP ONE
[2024-08-05] MEDS: IV FLUID CONTINUATION 1,000 ML IV ONE (09:55)
[2024-08-05 10:05] VITALS: RESP 16; TEMP 97.8
[2024-08-05] MEDS: ONDANSETRON 4 MG/2 ML VIAL IVP STA (10:18)
[2024-08-05] MEDS: LACTATED RINGERS 1,000 ML IV SCH (10:19)
[2024-08-05 10:29] LABS: Glucose,Whole Blood 193 mg/dL (70-110)
[2024-08-05] MEDS ORDERED: PROPOFOL 10 MG/ML 20 ML VIAL IV ONE (11:02)
--- NOTE | 2024-08-05 11:15 | P.PCN ---
Date of Procedure: 08/05/24 Procedure(s) Performed: BRIEF HISTORY: Patient is a 50-year-old pleasant white female scheduled for an elective colonoscopy as a part of change in bowel habits. PROCEDURE PERFORMED: Colonoscopy. PREOPERATIVE DIAGNOSIS: Change in bowel habits. IV sedation per Anesthesia. PROCEDURE: After informed consent was obtained, the patient, was brought into the endoscopy unit. IV sedation was administered by Anesthesia under continuous monitoring. Digital rectal examination was normal. Initially the Olympus CF-160 flexible video colonoscope was then inserted in the rectum, gradually advanced into the cecum without any difficulty. Careful examination was performed as the scope was gradually being withdrawn. Ileocecal valve and the appendiceal orifice were visualized and appeared normal. Prep was excellent. Mucosa of the cecum, ascending colon, transverse colon, descending colon, sigmoid colon, and rectum appeared normal. Retroflexion was performed in the rectum and no lesions were seen. The patient tolerated the procedure well. IMPRESSION: Normal-appearing colon from rectum to cecum with no evidence of colorectal neoplasia. RECOMMENDATIONS: Findings of this examination were discussed with the patient as a family. She was advised to continue with MiraLAX 1 scoop twice daily and high-fiber diet. Follow in the office in 2 weeks. Recommended repeat colonoscopy in 10 years..
[2024-08-05 11:50] VITALS: BP 108/68; PULSE 73
== END 2024-08-05 12:18 | disposition home or self-care (01) ==
LOC: ORWHC2ENDO 09:21
PROVIDERS: ATTEND Internal Medicine Gastroenterology
DX: R19.4 Change in bowel habit (principal); I10 Essential (primary) hypertension; E78.5 Hyperlipidemia, unspecified; E11.9 Type 2 diabetes mellitus without complications; E89.0 Postprocedural hypothyroidism; K21.9 Gastro-esophageal reflux disease without esophagitis; Z79.82 Long term (current) use of aspirin; Z79.84 Long term (current) use of oral hypoglycemic drugs; Z79.85 Long-term (current) use of injectable non-insulin antidiabetic drugs; Z79.899 Other long term (current) drug therapy
CPT/HCPCS: 45378; J2405; J2704

== ENCOUNTER → 2024-08-26 | Outpatient (CLI) | payer MEDICAID ==
[2024-08-26 13:06] LABS: ALT 25 U/L (8-44); AST 16 U/L (13-35); Chol/HDL Ratio 2.68 Ratio
== END | disposition home or self-care (01) ==
LOC: LABWHC1 07:06
PROVIDERS: ATTEND Internal Medicine Interventional Cardiology
DX: E78.2 Mixed hyperlipidemia (principal)
CPT/HCPCS: 36415; 80061; 84450; 84460